=== PATIENT | female | born 1940 | race Caucasian/White ===

== ENCOUNTER 2017-06-19 13:51 | Inpatient (IN) | payer MEDICARE, MEDICAID ==
[~2017-06-19] VITALS: Ht 157.5 cm; Wt 56.2 kg
[~2017-06-19 13:51] MED LIST: ASPI-1152 PO; CALC500T51 PO; GLIM4TAB2 PO; HYDR50TA3 PO; INSU100I4 SQ; INSU100V7 SQ; INSU3INS6 SQ; LEVO100T9 PO; NATE60TA4 PO; NIFE60TA2 PO; NIFE60TA69 PO; OXYB5TAB29 PO; POTA8TAB3 PO; POTA8TAB8 PO; PRAV20TA PO; PROP20TA7 PO; VALS160T2 PO; VALS160T24 PO
--- NOTE | 2017-06-19 14:00 | NUR ---
WEAKNESS AND ELEVATED BLOOD SUGAR SINCE YESTERDAY(OVER 500 PER SON). PATIENT RECEIVED AAO4. APPEARS IN NO APPARENT DISTRESS. SKIN IS WARM TO TOUCH AND NON DIAPHORETIC. PATIENT IS AFEBRILE. VSS
[2017-06-19 14:55] LABS: BASOPHILS % (AUTO) 0.3 % (0.0-2.0); EOSINOPHILS # (AUTO) 0.1 /CMM (0.0-0.7); EOSINOPHILS % (AUTO) 0.8 % (0.0-6.0); HEMATOCRIT 36 % (33-45); HEMOGLOBIN 11.4 g/dL (11.5-14.8); LYMPHOCYTES # (AUTO) 1.6 /CMM (0.8-4.8); LYMPHOCYTES % (AUTO) 24.1 % (20.0-44.0); MEAN CORPUSCULAR HEMOGLOBIN 29 PG (26.0-33.0); MEAN CORPUSCULAR HGB CONC 32 g/dl (31.0-36.0); MEAN CORPUSCULAR VOLUME 91 fL (82-100); MONOCYTES # (AUTO) 0.4 /CMM (0.1-1.30); MONOCYTES % (AUTO) 6.5 % (2.0-12.0); NEUTROPHILS # (AUTO) 4.7 /CMM (1.8-8.9); NEUTROPHILS % (AUTO) 68.3 % (43.0-81.0); PLATELET COUNT (AUTO) 210 /CMM (150-450); RDW COEFFICIENT OF VARIATION 13.3 (11.5-15.0); RED BLOOD CELL COUNT(AUTO) 3.97 MIL/uL (4.0-5.2); WHITE BLOOD COUNT (AUTO) 6.8 K/uL (4.3-11.0)
[2017-06-19] MEDS ORDERED: IV NS 0.9% 1,000 ML BAG IV ONE (15:00)
[2017-06-19 15:08] LABS: CALCIUM, SERUM 9.4 mg/dL (8.5-10.1); CARBON DIOXIDE 24 mmol/L (21-32); CHLORIDE 89 mmol/L (98-107); CREATININE 3.3 mg/dL (0.6-1.3); POTASSIUM 5.3 mmol/L (3.5-5.1); SODIUM SERUM 121 mmol/L (136-145); UREA NITROGEN, BLOOD 66 mg/dL (7-18)
[2017-06-19 15:12] LABS: ALANINE AMINOTRANSFERASE 17 U/L (12-78); ALBUMIN 3.4 g/dL (3.4-5.0); ALKALINE PHOSPHATASE 149 U/L (46-116); ASPARTATE AMINOTRANSFERASE 21 U/L (15-37); BILIRUBIN,DIRECT 0.1 mg/dL (0.0-0.2); BILIRUBIN,TOTAL 0.3 mg/dL (0.2-1.0); GLUCOSE 903 mg/dL (74-106); LIPASE 251 U/L (73-393); TOTAL PROTEIN, SERUM 8.4 g/dL (6.4-8.2)
[2017-06-19 15:13] LABS: TROPONIN I < 0.017 ng/mL (0.00-0.056)
[2017-06-19 15:40] LABS: APPEARANCE,URINE Turbid (CLEAR); BILIRUBIN,URINE Negative (NEGATIVE); BLOOD, URINE Trace-lysed Ery/uL (NEGATIVE); COLOR,URINE Yellow (YELLOW); KETONES,URINE Negative (NEGATIVE); LEUKOCYTE ESTERASE ,URINE Small (NEGATIVE); NITRITE, URINE Positive (NEGATIVE); PH,URINE 5.5 (5.0-8.0); PROTEIN,URINE Negative (NEGATIVE); UGLUCOSE 500 MG/DL mg/dL (NEGATIVE); UROBILINOGEN,URINE 0.2 EU/dL (0.2)
--- NOTE | 2017-06-19 15:45 | NUR ---
PANEL ON-CALL PAGED
[2017-06-19 15:49] LABS: BACTERIA,URINE Moderate /HPF (None Seen); SQUAMOUS EPITHELIAL CELL,UR Few /HPF (None Seen); WBC,URINE 80-100 /HPF (0-3)
[2017-06-19] MEDS ORDERED: IV NS 0.9% 1,000 ML IV ONE (16:00)
--- NOTE | 2017-06-19 16:20 | NUR ---
PANEL ON-CALL PAGED
[2017-06-19] MEDS ORDERED: CEFTRIAXONE 1GM BAG (ER ONLY) 50 ML IV ONE (16:41)
--- NOTE | 2017-06-19 16:44 | NUR ---
AWARE OF INSULIN 903--AWAITING FOR ORDER
[2017-06-19] MEDS ORDERED: INSULIN REGULAR, HUMAN 100 UNIT/ML 10 ML VIAL SQ ONE (17:00)
[2017-06-19] MEDS ORDERED: CEFTRIAXONE 1GM BAG (ER ONLY) 1 GM/50 ML PIGGYBACK IV ONE (17:00)
[2017-06-19] MEDS ORDERED: INSULIN REGULAR, HUMAN 100 UNIT/ML 10 ML VIAL ONE (17:04)
--- NOTE | 2017-06-19 17:12 | NUR ---
PATIENT TRANSPORTED TO [address] [place] [address]
[2017-06-19 17:30] VITALS: BP 98/50
--- NOTE | 2017-06-19 17:35 | NUR ---
TELE/EVP GLOBAL MULTIMEDIA SALES PATIENT ADMITTED FROM ER FOR DIAGNOSIS OF HIGH BLOOD SUGAR. REPORT GIVEN BY BRENDAN BOND FROM ER. A/O X 3. HAITIAN SPEAKING. NO SIGNS OF ACUTE DISTRESS. NO COMPLAIN OF PAIN OR DISCOMFORT. ON TELE MONITOR WITH SINUS RHYTHM. CONTINENT OF BOWEL AND BLADDER. ALL NEEDS ATTENDED TO. CALL LIGHT WITHIN REACH. WILL CONTINUE TO MONITOR TO ENSURE SAFETY.
--- NOTE | 2017-06-19 18:18 | NUR ---
TELE/RN SPOKE WITH DR MARY LOU COX INFORMED REGARDING NEW ADMISSION. AWAITING FOR ADMISSION ORDERS.
[2017-06-19] MEDS ORDERED: IV NS 0.9% 1,000 ML IV PRN ×2 (18:38→19:00)
--- NOTE | 2017-06-19 18:58 | NUR ---
TELE/RN CLOSING NOTE PATIENT IN BED IN STABLE CONDITION. A/O X 3, NICARAGUAN SPEAKING. NO SIGNS OF ACUTE DISTRESS. NO COMPLAIN OF PAIN OR DISCOMFORT. ON TELE MONITOR WITH SINUS RHYTHM, EPISODES OF AFIB WITH BBB WITH RATE OF HIGH 50'S, 58 AT THIS TIME. ALL NEEDS ATTENDED TO. CALL LIGHT WITHIN REACH. WILL ENDORSE TO NEXT SHIFT FOR CONTINUITY OF CARE.
[2017-06-19] MEDS ORDERED: Z GUARD REMEDY 2 OZ OINT TP PRN (19:00)
[2017-06-19] MEDS ORDERED: INSULIN REGULAR, HUMAN 100 UNIT/ML 3 ML VIAL SQ PRN (19:00)
[2017-06-19] MEDS ORDERED: ACETAMINOPHEN 325 MG TABLET PO PRN (19:00)
[2017-06-19] MEDS ORDERED: ONDANSETRON HCL/PF 4 MG/2 ML VIAL IVP PRN (19:00)
--- NOTE | 2017-06-19 19:45 | NUR ---
RN OPENING NOTES RECEIVED REPORT FROM YVAN RN. FOUND Pt AWAKE RESTING IN BED. NO S/S OF ACUTE DISTRESS OR SOB NOTED. NO C/O PAIN AT THIS TIME. Pt IS A/OX3, SLOVAK SPEAKING ONLY. ON TELE MONITOR SB 57. IV ACCESS ON LAC#20G IVF NS @125ML/HR, INFUSING WELL. SAFETY MEASURES IN PLACE. BED LOW, LOCKED, HOB ELEVATED, SIDE RAILS UP, CALL LIGHT AND BEDSIDE TABLE WITHIN REACH. WILL CONTINUE TO MONITOR Pt THROUGHOUT THE NIGHT FOR SAFETY.
[2017-06-19 20:00] VITALS: BP 105/56
[2017-06-19] MEDS: PROPRANOLOL HCL 10 MG TABLET PO SCH (20:00)
[2017-06-19] MEDS: BLOOD SUGAR DIAGNOSTIC 1 EACH STRIP IN SCH ×2 (21:26→21:53)
[2017-06-19] MEDS: ENOXAPARIN SODIUM 40 MG/0.4 ML DISP.SYRIN SQ SCH (21:30)
[2017-06-19] MEDS: VALSARTAN 80 MG TABLET PO SCH (21:36)
[2017-06-19] MEDS ORDERED: CEFTRIAXONE 1 G VIAL ONE (21:57)
[2017-06-19] MEDS ORDERED: INSULIN DETEMIR 100 UNIT/ML CARTRIDGE SQ SCH (22:00)
--- NOTE | 2017-06-19 22:00 | NUR ---
RN NOTES BG 304. ADMINISTERED 16 UN OF REGULAR INSULIN PER AGGRESSIVE SLIDING SCALE IN ADDITION TO LEVEMIR 35UN.
[2017-06-19] MEDS: CEFTRIAXONE 1 G in IV D5W 50 ML IV SCH (22:26)
[2017-06-20] VITALS (8 sets, daily range): BP systolic 98–138; BP diastolic 46–71
[2017-06-20] MEDS: BLOOD SUGAR DIAGNOSTIC 1 EACH STRIP IN SCH ×5 (00:08→22:14)
[2017-06-20] MEDS: DEXTROSE 50%-WATER 50 ML DISP.SYRIN IV PRN ×2 (00:14→05:19)
--- NOTE | 2017-06-20 00:16 | NUR ---
RN NOTES ACCUCHECK BG 10. PUSHED D50%. RECHECKED BG, WENT UP TO 271. NO COVERAGE GIVEN AT THIS TIME.
--- NOTE | 2017-06-20 00:20 | NUR ---
RN NOTES Pt IS RESPONSIVE AND ALERT. IS ABLE TO FOLLOW COMMANDS. Pt REQUESTED FOR SOME WATER AND WAS ABLE TO DRINK WATER WITH NO PROBLEMS.
--- NOTE | 2017-06-20 03:25 | NUR ---
ADMINISTERED D50 AT 0325 DUT TO LOW BG <10. FORGOT TO SCAN AT THE TIME.
--- NOTE | 2017-06-20 03:31 | NUR ---
BG 361
--- NOTE | 2017-06-20 03:31 | NUR ---
BG 361 (RECHECKED AFTER D50% WAS GIVEN). NO INSULIN COVERAGE GIVEN.
--- NOTE | 2017-06-20 03:34 | NUR ---
BG 210 (NO INSULIN COVERAGE GIVEN)
[2017-06-20 03:46] LABS: ABG BASE EXCESS -2.5 mmol/L; ABG OXYGEN SATURATION 98.9 % (92.0-98.5); ABG PCO2 39.6 mmHg (35.0-45.0); ABG PH 7.373 (7.350-7.450); AaDO2 227.4 mmHg; COHb 0.3 % (0.5-1.5); MetHb 0.6 % (0.0-1.5); SITE, ABG Right Radial; VENT MODE, BG NRB
[2017-06-20] MEDS: PROPRANOLOL HCL 10 MG TABLET PO SCH ×3 (04:00→20:00)
--- NOTE | 2017-06-20 04:14 | NUR ---
BG 118 (NO INSULIN COVERAGE GIVEN)
[2017-06-20 04:19] LABS: BASOPHILS % (AUTO) 0.4 % (0.0-2.0); EOSINOPHILS # (AUTO) 0.2 /CMM (0.0-0.7); HEMATOCRIT 32 % (33-45); HEMOGLOBIN 10.9 g/dL (11.5-14.8); LYMPHOCYTES # (AUTO) 2.8 /CMM (0.8-4.8); LYMPHOCYTES % (AUTO) 34.3 % (20.0-44.0); MEAN CORPUSCULAR HEMOGLOBIN 30 PG (26.0-33.0); MEAN CORPUSCULAR HGB CONC 34 g/dl (31.0-36.0); MEAN CORPUSCULAR VOLUME 90 fL (82-100); MONOCYTES # (AUTO) 0.8 /CMM (0.1-1.30); MONOCYTES % (AUTO) 10.3 % (2.0-12.0); NEUTROPHILS # (AUTO) 4.2 /CMM (1.8-8.9); PLATELET COUNT (AUTO) 223 /CMM (150-450); RDW COEFFICIENT OF VARIATION 14.1 (11.5-15.0); WHITE BLOOD COUNT (AUTO) 8.1 K/uL (4.3-11.0)
[2017-06-20 04:30] LABS: CALCIUM, SERUM 8.7 mg/dL (8.5-10.1); CARBON DIOXIDE 25 mmol/L (21-32); CHLORIDE 104 mmol/L (98-107); CREATININE 2.6 mg/dL (0.6-1.3); GLUCOSE 216 mg/dL (74-106); POTASSIUM 3.7 mmol/L (3.5-5.1); SODIUM SERUM 136 mmol/L (136-145); UREA NITROGEN, BLOOD 57 mg/dL (7-18)
[2017-06-20] MEDS ORDERED: IV D5/ 0.9% NACL 1,000 ML IV PRN (04:30)
--- NOTE | 2017-06-20 04:30 | NUR ---
RN NOTES CAME INTO Pt's ROOM TO CHANGE LEADS AT 0325, BUT FOUND Pt UNRESPONSIVE TO NAME BEING CALLED OUT LOUDLY AND TO PHYSICAL TOUCH AND STERNAL RUB. CHECKED BG @0327, BG WAS <10. CALLED RAPID RESPONSE AT 0330, ARRIVAL TIME 332. VS AT THE TIME WAS BP: 114/64, HR 55, R 16, O2 100%, T 97.4F. PUSHED D50%, RECHECKED BG @033, BG WAS 361, NO INSULIN COVERAGE GIVEN. SPOKE WITH ABRASIVE GRADER, MARYSOL BROWN ON THE PHONE, TO INFORM HER OF Pt'S CONDITION. ORDERED STAT EKG, HEAD CT SCAN, & ABG LABS. EKG COMPLETION @0345. Pt WAS TAKEN DOWN FOR CT SCAN @0350, Pt RETURNED FROM CT SCAN @0416. Pt WAS STARTING TO BECOME RESPONSIVE AND WAS STARTING TO HAVE MOVEMENTS OF BOTH UPPER AND LOWER EXTREMITIES AROUND 0345. ONCE Pt RETURNED FROM CT AND WAS BACK IN ROOM, Pt WAS MORE RESPONSIVE AND ABLE TO ANSWER QUESTIONS, AND OPEN EYES AND FOLLOW COMMANDS. WAITING FOR CT RESULTS. MARYSOL ORDERED NEW IVF: D5NS @100ML/HR.
--- NOTE | 2017-06-20 04:31 | NUR ---
STARTED ON D5NS @100ML/HR
[2017-06-20 04:34] LABS: INR 0.98 (0.87-1.13); PROTHROMBIN TIME 10.2 SECS (9.5-12.7)
--- NOTE | 2017-06-20 04:50 | NUR ---
BG 86 (NO INSULIN COVERAGE GIVEN). OJ AND SANDWICH GIVEN.
--- NOTE | 2017-06-20 05:04 | NUR ---
BG 96. SPOKE WITH CHINMAY GREGG ON THE PHONE. SAID TO GIVE 1/2 OF ANOTHER D50% TO HELP KEEP Pt's BG STABLE AND STEADY. AND TO PUT Pt ON D10NS @100ML/HR INSTEAD.
--- NOTE | 2017-06-20 05:25 | NUR ---
BG 175 (NO INSULIN COVERAGE GIVEN.)
[2017-06-20 05:50] LABS: THYROID STIMULATING HORMONE 0.474 uIU/mL (0.358-3.74)
[2017-06-20 05:54] LABS: TROPONIN I 0.021 ng/mL (0.00-0.056)
[2017-06-20 05:55] LABS: PHOSPHORUS 2.3 mg/dL (2.5-4.9)
--- NOTE | 2017-06-20 06:00 | NUR ---
RN NOTES D10NS IS NOT AVAILABLE ON THE FLOOR AT THIS TIME. WILL KEEP Pt ON D5NS @100ML/HR FOR THE MEAN TIME UNTIL PHARMACY IS OPEN AND CAN DELIVER THE IVF BAG TO THE FLOOR.
[2017-06-20] MEDS ORDERED: Sodium Chloride 154 MEQ in IV 10% DEXTROSE 1,000 ML IV PRN (06:30)
--- NOTE | 2017-06-20 07:00 | NUR ---
RN CLOSING NOTES NO OTHER SIGNIFICANT CHANGES TO Pt's CONDITION AFTER RAPID RESPONSE HAS BEEN RESOLVED. CT SCAN CAME BACK NEGATIVE FOR STROKE. Pt IS MUCH MORE ALERT AND VERBALLY & PHYSICALLY RESPONSIVE NOW. Pt WAS ABLE TO DRINK OJ AND EAT A SANDWICH AROUND 0450AM. NO OTHER S/S OF ACUTE DISTRESS OR SOB NOTED. ALL NEEDS MET AND ATTENDED TO. SAFETY MEASURES IN PLACE. WILL ENDORSE TO DAYSHIFT RN FOR Pt's LÁZARO.
--- NOTE | 2017-06-20 07:00 | NUR ---
BG 256 (NO INSULIN COVERAGE GIVEN)
[2017-06-20] MEDS: ASPIRIN EC 81 MG TABLET.DR PO SCH (08:20)
[2017-06-20] MEDS: ATORVASTATIN 10 MG TABLET PO SCH (08:20)
[2017-06-20] MEDS: VALSARTAN 80 MG TABLET PO SCH ×2 (08:21→20:53)
[2017-06-20] MEDS: NIFEdipine XL 60 MG TAB PO SCH (08:21)
[2017-06-20] MEDS: NATEGLINIDE 60 MG TABLET PO SCH (08:21)
[2017-06-20] MEDS: LEVOTHYROXINE SODIUM 100 MCG TABLET PO SCH (08:22)
[2017-06-20] MEDS: OXYBUTYNIN CHLORIDE ER 5 MG TAB PO SCH (08:22)
[2017-06-20] MEDS ORDERED: GLIMEPIRIDE 4 MG TABLET PO SCH (09:00)
--- NOTE | 2017-06-20 09:10 | NUR ---
CALLED DR COX TO DISCUSS PATIENT SUGARS AND TO GET NEW ORDER. STATES TO DISCONTINUE THE INSULINS FOR NOW. ADD HUMALOG 5U AC. DO BLOOD SUGAR CHECKS AC/HS AND PRN. AND TO DISCONTINUE THE D5 AND D10. MD TO CHECK ON PATIENT LATER.
--- NOTE | 2017-06-20 10:12 | NUR ---
DR COX ASKS TO DECREASE THE LEVIMER TO 20 UNITS INSTEAD OF 35.
[2017-06-20] MEDS: INSULIN LISPRO/ASPART 100 UNIT/ML CARTRIDGE SQ SCH ×2 (12:24→17:18)
[2017-06-20] MEDS ORDERED: K PHOS NEUTRAL 250 MG TABLET PO ONE (16:00)
[2017-06-20 16:37] LABS: APPEARANCE,URINE CLOUDY (CLEAR); BILIRUBIN,URINE NEGATIVE (NEGATIVE); BLOOD, URINE 1+ Ery/uL (NEGATIVE); COLOR,URINE YELLOW (YELLOW); KETONES,URINE NEGATIVE (NEGATIVE); LEUKOCYTE ESTERASE ,URINE 3+ (NEGATIVE); NITRITE, URINE NEGATIVE (NEGATIVE); PROTEIN,URINE NEGATIVE (NEGATIVE); UGLUCOSE 2+ mg/dL (NEGATIVE); UROBILINOGEN,URINE 0.2 EU/dL (0.2)
[2017-06-20 16:50] LABS: CREATININE, URINE 28.2 MG/DL (30.0-125.0); URINE TOTAL PROTEIN 29.3 mg/dL (0-11.9)
[2017-06-20 17:48] LABS: WBC,URINE 21-50 /HPF (0-3)
[2017-06-20 17:49] LABS: BACTERIA,URINE Few /HPF (None Seen); SQUAMOUS EPITHELIAL CELL,UR Moderate /HPF (None Seen)
--- NOTE | 2017-06-20 18:21 | NUR ---
NO SIGNIFICANT CHANGES IN PATIENT CONDITION THROUGHOUT THE SHIFT. NO SOB OR DISTRESS NOTED AT THIS TIME. PATIENT DENIES PAIN. HEART RATE SR IN THE 60S WITH 1ST DEGREE AV BLOCK. BED IN A LOW POSITION, CALL LIGHT WITHIN PATIENT REACH. WILL ENDORSE FOR LÁZARO.
[2017-06-20 18:33] LABS: EOSINOPHIL,URINE Few
--- NOTE | 2017-06-20 19:50 | NUR ---
OXYGEN SYSTEM TESTER NOTE: PATIENT RESTING IN BED, NO ACUTE DISTRESS NOTED. BREATHING EVEN AND UNLABORED, NO SOB NOTED. IV TO LAC IN PLACE. NO S/S OF HYPER/HYPOGLYCEMIA NOTED. BED LOCKED AND IN LOWEST POSITION, CALL LIGHT IN REACH. WILL CONTINUE TO MONITOR.
--- NOTE | 2017-06-20 21:20 | NUR ---
VP PUBLISHER DEVELOPMENT NOTE: PATIENT SITTING UP IN BED, NO ACUTE DISTRESS NOTED. REPORT GIVEN TO VARUN NI TO CONTINUE WITH PLAN OF CARE.
--- NOTE | 2017-06-20 21:24 | NUR ---
TELE/RN NOTES RECEIVED REPORT FROM VARUN TANNER. RECEIVED PT. LYING IN BED. AWAKE, ALERT AND ORIENTED X3. BREATHING EVEN AND UNLABORED ON ROOM AIR. NO SOB, RESPIRATORY DISTRESS OR COMPLAINTS OF PAIN NOTED AT THIS TIME. PT. WITH LEFT AC IV PRESENT, PATENT AND INTACT. BED LOCKED AND IN LOWEST POSITION, SIDE RAILS UP X3, BED ALARM ON, CALL LIGHT WITHIN REACH, WILL CONTINUE TO MONITOR.
[2017-06-20] MEDS: INSULIN DETEMIR 100 UNIT/ML CARTRIDGE SQ SCH (22:00)
[2017-06-20] MEDS: CEFTRIAXONE 1 G in IV D5W 50 ML IV SCH (22:14)
[2017-06-20] MEDS: ENOXAPARIN SODIUM 40 MG/0.4 ML DISP.SYRIN SQ SCH (22:15)
[2017-06-21] VITALS: BP 95/50
[2017-06-21 04:00] VITALS: BP 120/62
[2017-06-21] MEDS: PROPRANOLOL HCL 10 MG TABLET PO SCH ×3 (04:00→21:01)
--- NOTE | 2017-06-21 06:24 | NUR ---
MS/RN NOTES PT. IS LYING IN BED RESTING. BREATHING EVEN AND UNLABORED ON ROOM AIR. NO SOB, RESPIRATORY DISTRESS OR COMPLAINTS OF PAIN NOTED AT THIS TIME. PT. WITH LEFT AC IV PRESENT, PATENT AND INTACT. ALL PT. NEEDS MET. BED LOCKED AND IN LOWEST POSITION, SIDE RAILS UP X3, BED ALARM ON, CALL LIGHT WITHIN REACH, WILL ENDORSE TO DAYSHIFT NURSE FOR CONTINUITY OF CARE.
[2017-06-21] MEDS: BLOOD SUGAR DIAGNOSTIC 1 EACH STRIP IN SCH ×4 (06:39→22:47)
--- NOTE | 2017-06-21 07:20 | NUR ---
MS RN OPENING NOTES RECEIVED PT FROM NIGHTSHIFT NURSE IN STABLE CONDITION. PT IS A/O X3. NO SOB OR SIGNS OF DISTRESS NOTED. BREATHING IS EVEN AND UNLABORED. PT EXHIBITS NO S/S OF HYPER/HYPOGLYCEMIA AT THIS TIME. IV NOTED TO BE PATENT AND INTACT. BED IN LOW LOCKED POSITION, SIDE RAILS UP X3, BED ALARM ON, CALL LIGHT WITHIN REACH. WILL CONTINUE TO MONITOR.
[2017-06-21 08:00] VITALS: BP 124/61
[2017-06-21 08:03] LABS: BASOPHILS % (AUTO) 0.7 % (0.0-2.0); EOSINOPHILS # (AUTO) 0.1 /CMM (0.0-0.7); EOSINOPHILS % (AUTO) 2.1 % (0.0-6.0); HEMATOCRIT 34 % (33-45); HEMOGLOBIN 11.2 g/dL (11.5-14.8); LYMPHOCYTES # (AUTO) 2.5 /CMM (0.8-4.8); LYMPHOCYTES % (AUTO) 37.6 % (20.0-44.0); MEAN CORPUSCULAR HEMOGLOBIN 29 PG (26.0-33.0); MEAN CORPUSCULAR HGB CONC 33 g/dl (31.0-36.0); MEAN CORPUSCULAR VOLUME 88 fL (82-100); MONOCYTES # (AUTO) 0.6 /CMM (0.1-1.30); NEUTROPHILS # (AUTO) 3.5 /CMM (1.8-8.9); NEUTROPHILS % (AUTO) 50.6 % (43.0-81.0); PLATELET COUNT (AUTO) 190 /CMM (150-450); RDW COEFFICIENT OF VARIATION 13.3 (11.5-15.0); RED BLOOD CELL COUNT(AUTO) 3.83 MIL/uL (4.0-5.2); WHITE BLOOD COUNT (AUTO) 6.7 K/uL (4.3-11.0)
[2017-06-21 08:36] LABS: ALANINE AMINOTRANSFERASE 16 U/L (12-78); ALBUMIN 2.8 g/dL (3.4-5.0); ALKALINE PHOSPHATASE 93 U/L (46-116); ASPARTATE AMINOTRANSFERASE 16 U/L (15-37); BILIRUBIN,TOTAL 0.2 mg/dL (0.2-1.0); CALCIUM, SERUM 8.6 mg/dL (8.5-10.1); CARBON DIOXIDE 25 mmol/L (21-32); CHLORIDE 105 mmol/L (98-107); CREATININE 2.5 mg/dL (0.6-1.3); GLUCOSE 258 mg/dL (74-106); MAGNESIUM 2.1 mg/dL (1.8-2.4); PHOSPHORUS 3.1 mg/dL (2.5-4.9); POTASSIUM 4.2 mmol/L (3.5-5.1); SODIUM SERUM 139 mmol/L (136-145); TOTAL PROTEIN, SERUM 7.2 g/dL (6.4-8.2); UREA NITROGEN, BLOOD 43 mg/dL (7-18)
[2017-06-21 08:44] LABS: CREATINE KINASE, TOTAL 81 U/L (26-192)
[2017-06-21] MEDS: VALSARTAN 80 MG TABLET PO SCH ×2 (09:00→21:00)
[2017-06-21] MEDS: NIFEdipine XL 60 MG TAB PO SCH (09:00)
[2017-06-21] MEDS: INSULIN LISPRO/ASPART 100 UNIT/ML CARTRIDGE SQ SCH ×3 (09:03→17:16)
[2017-06-21] MEDS: LEVOTHYROXINE SODIUM 100 MCG TABLET PO SCH (09:04)
[2017-06-21] MEDS: OXYBUTYNIN CHLORIDE ER 5 MG TAB PO SCH (09:04)
[2017-06-21] MEDS: ASPIRIN EC 81 MG TABLET.DR PO SCH (09:04)
[2017-06-21] MEDS: NATEGLINIDE 60 MG TABLET PO SCH (09:04)
[2017-06-21] MEDS: ATORVASTATIN 10 MG TABLET PO SCH (09:06)
[2017-06-21 16:00] VITALS: BP 124/63
--- NOTE | 2017-06-21 19:03 | NUR ---
MS RN CLOSING NOTES PT REAMING IN STABLE CONDITION. BLOOD SUGAR REMAINED CONTROLLED WITH INSULIN ADMINISTRATION. MENTAL STATUS WNL THROUGHOUT SHIFT. ALL NEEDS MET AND ORDERS CARRIED OUT ACCORDINGLY. WILL ENDORSE TO NIGHTSHIFT NURSE FOR LÁZARO
--- NOTE | 2017-06-21 19:30 | NUR ---
MS/RN OPENING NOTES PT RECEIVED AWAKE, SITTING UP IN BED. A/OX3, SOME EPISODES OF CONFUSION. MOHAWK SPEAKING, ABLE TO MAKE NEEDS KNOWN. ON ROOM AIR, BREATHING EVEN AND UNLABORED. DENIES SOB OR PAIN AT THIS TIME. IV TO LAC PATENT AND INTACT. BED IN LOW/LOCKED POSITION WITH CALL LIGHT IN REACH AND SIDE RAILS UPX3 AND BED ALARM ON FOR SAFETY. WILL CONTINUE TO MONITOR
[2017-06-21 20:00] VITALS: BP 132/76
[2017-06-21] MEDS: CEFTRIAXONE 1 G in IV D5W 50 ML IV SCH (21:01)
[2017-06-21] MEDS: ENOXAPARIN SODIUM 40 MG/0.4 ML DISP.SYRIN SQ SCH (21:05)
[2017-06-21] MEDS: INSULIN DETEMIR 100 UNIT/ML CARTRIDGE SQ SCH (23:02)
[2017-06-22] MEDS: PROPRANOLOL HCL 10 MG TABLET PO SCH ×2 (05:05→12:11)
--- NOTE | 2017-06-22 07:30 | NUR ---
MS/RN CLOSING NOTES PT ASLEEP, EASILY AROUSABLE TO NAME. A/OX3 WITH EPISODES OF CONFUSION. ICELANDIC SPEAKING. ON ROOM AIR, BREATHING EVEN AND UNLABORED. DENIES SOB OR PAIN. AMBULATES WITH ASSIST BUT UNSTEADY. BED ALARM ON FOR SAFETY. SIDE RAILS UPX3. IV TO LAC PATENT AND INTACT. NO SIGNIFICANT CHANGES OVERNIGHT. MADE PT COMFORTABLE DURING SHIFT. PT DOES NOT WANT TO TAKE INSULIN UNLESS SHE IS READY TO EAT. BLOOD SUGAR AT 0630 WAS 260, NO INSULIN ADMINISTERED PER PT. AWAITING BREAKFAST TRAY. BED IN LOW/LOCKED POSITION WITH CALL LIGHT IN REACH. ENDORSED TO AM SHIFT LÁZARO.
--- NOTE | 2017-06-22 07:32 | NUR ---
MS RN OPENING NOTES RECEIVED PT ASLEEP IN BED, EASILY AROUSABLE. A/O X 3, DENIES PAIN OR DISCOMFORTS AT THIS TIME. REPORTED THAT PT HAS B/S OF 260 THIS MORNING AND WILL ADMINISTER HUMALOG 5UNITS BEFORE BREAKFAST SCHEDULED. ON ROOM AIR, RESPIRATIONS EVEN WITH NO SOB NOTED. IV ACCESS ON LAC G#20 INTACT AND PATENT. HOB ELEVATED. BED LOCKED AND IN LOWEST POSITION WITH SIDE-RAILS UP X2. CALL LIGHT WITHIN EASY TO REACH. WILL CONTINUE TO MONITOR
[2017-06-22 08:00] VITALS: BP 124/53
[2017-06-22] MEDS: LEVOTHYROXINE SODIUM 100 MCG TABLET PO SCH (08:03)
[2017-06-22] MEDS: BLOOD SUGAR DIAGNOSTIC 1 EACH STRIP IN SCH ×3 (08:03→17:23)
[2017-06-22] MEDS: INSULIN LISPRO/ASPART 100 UNIT/ML CARTRIDGE SQ SCH ×3 (08:05→17:22)
[2017-06-22] MEDS ORDERED: INSU100C SQ (08:24)
[2017-06-22] MEDS: ASPIRIN EC 81 MG TABLET.DR PO SCH (08:25)
[2017-06-22] MEDS: ATORVASTATIN 10 MG TABLET PO SCH (08:25)
[2017-06-22] MEDS: NATEGLINIDE 60 MG TABLET PO SCH (08:25)
[2017-06-22] MEDS: OXYBUTYNIN CHLORIDE ER 5 MG TAB PO SCH (08:25)
[2017-06-22] MEDS ORDERED: CEPH-569 PO (08:26)
[2017-06-22] MEDS: NIFEdipine XL 60 MG TAB PO SCH (08:27)
[2017-06-22] MEDS: VALSARTAN 80 MG TABLET PO SCH (08:27)
[2017-06-22 11:23] LABS: PTH, INTACT 53 pg/mL (15-65)
[2017-06-22 16:00] VITALS: BP 115/59
--- NOTE | 2017-06-22 16:06 | NUR ---
RN NOTES CALLED PT'S SON LELE AND INFORMED THAT PT WILL BE DISCHARGED TODAY AND SAID THAT HE WILL COME BETWEEN [phone] TO [facility]. WILL FOLLOW-UP.
--- NOTE | 2017-06-22 19:05 | NUR ---
MS RN DISCHARGED NOTES PT DISCHARGED HOME IN STABLE CONDITION. LEFT UNIT AT 1905 VIA WHEELCHAIR ACCOMPANIED BY SON LELE A/O X 3, NO SIGNS OF DISTRESS DURING DISCHARGE. V/S TAKEN AND RECORDED. PHOTOS OF SKIN TAKEN AND FILED ON CHART. BELONGINGS CHECKED, COUNTED AND SIGNED FORM. PNA AND FLU VACCINES NOT GIVEN PT RECEIVED THEM ALREADY BUT FORGOT THE DATES. EXIT CARE REVIEWED AND HEALTH TEACHINGS GIVEN TO SON AND PT AND BOTH VERBALIZED UNDERSTANDING. MD AND CHARGE NURSE AWARE OF DISCHARGE.
[2017-06-25 08:07] LABS: *SPE A/G RATIO 0.9 (0.7-1.7); *SPE ALPHA-1-GLOBULIN 0.2 g/dL (0.0-0.4); *SPE ALPHA-2-GLOBULIN 0.9 g/dL (0.4-1.0); *SPE BETA GLOBULIN 0.7 g/dL (0.7-1.3); *SPE GLOBULIN, TOTAL 3.4 g/dL (2.2-3.9); *SPE M-SPIKE Not Observed g/dL (Not Observed); *SPEGAMMA GLOBULIN 1.6 g/dL (0.4-1.8)
== END 2017-06-22 19:05 | disposition home or self-care (01) | DRG 637 ==
LOC: ER 13:51 → TELE 16:59 → MED 06-21 08:54
PROVIDERS: ADMIT Nurse Practitioner Acute Care; ATTEND Nurse Practitioner Acute Care
DX: E11.00 Type 2 diabetes mellitus with hyperosmolarity without nonketotic hyperglycemic-hyperosmolar coma (NKHHC) (principal); N17.0 Acute kidney failure with tubular necrosis; E87.0 Hyperosmolality and hypernatremia; N39.0 Urinary tract infection, site not specified; E87.1 Hypo-osmolality and hyponatremia; E11.649 Type 2 diabetes mellitus with hypoglycemia without coma; E11.22 Type 2 diabetes mellitus with diabetic chronic kidney disease; E11.65 Type 2 diabetes mellitus with hyperglycemia; E03.9 Hypothyroidism, unspecified; Z79.84 Long term (current) use of oral hypoglycemic drugs; Z79.4 Long term (current) use of insulin; Z79.82 Long term (current) use of aspirin; Z79.899 Other long term (current) drug therapy; F03.90 Unspecified dementia, unspecified severity, without behavioral disturbance, psychotic disturbance, mood disturbance, and anxiety; Z86.73 Personal history of transient ischemic attack (TIA), and cerebral infarction without residual deficits; B96.89 Other specified bacterial agents as the cause of diseases classified elsewhere; N18.9 Chronic kidney disease, unspecified; I12.9 Hypertensive chronic kidney disease with stage 1 through stage 4 chronic kidney disease, or unspecified chronic kidney disease; E87.5 Hyperkalemia; Z98.890 Other specified postprocedural states
CPT/HCPCS: 36415; 36600; 70450-TC; 71010-TC; 80048-TC; 80053-TC; 80061-TC; 80076-TC; 81000-TC; 82550-TC; 82570-TC; 82803-TC; 82962-TC; 83690-TC; 83735-TC; 83970; 84100-TC; 84155; 84155-TC; 84165; 84300-TC; 84443-TC; 84484-TC; 85025-TC; 85730-TC; 86850-TC; 87081-TC; 87086-TC; 87186-TC; A4606; J0696; J1650; J1815; J3490; J7030; J7042; J7060; Z7610

== ENCOUNTER 2017-07-14 05:54 | Inpatient (IN) | payer MEDICARE, MEDICAID ==
[~2017-07-14] VITALS: Ht 160 cm; Wt 56.2 kg
[~2017-07-14 05:54] MED LIST changes: +CEPH-569 PO; +INSU100C SQ; -INSU100I4 SQ; -INSU100V7 SQ; -NIFE60TA69 PO; -POTA8TAB8 PO; -VALS160T24 PO
--- NOTE | 2017-07-14 06:00 | NUR ---
76 yo female bb family. patient is seems drowsie. per family patient is slow to response, family brought patient to ed for possible low blood sugar. per family patient takes 15 units of lantus at bed time, patient assisted to er bed, skin warm and dry, resp even and unlabored. awaiting orders from provider, will continue to monitor
--- NOTE | 2017-07-14 06:05 | NUR ---
bg shows 52, md notified. gave patient juice and apple sauce. after admin patient family states patient seem back to base line, will continue to monitor
--- NOTE | 2017-07-14 06:15 | NUR ---
22g left hand iv started
[2017-07-14 06:43] LABS: BASOPHILS % (AUTO) 0.7 % (0.0-2.0); EOSINOPHILS # (AUTO) 0.3 /CMM (0.0-0.7); EOSINOPHILS % (AUTO) 4.1 % (0.0-6.0); HEMATOCRIT 33 % (33-45); HEMOGLOBIN 11.2 g/dL (11.5-14.8); LYMPHOCYTES # (AUTO) 3.1 /CMM (0.8-4.8); LYMPHOCYTES % (AUTO) 47.7 % (20.0-44.0); MEAN CORPUSCULAR HEMOGLOBIN 31 PG (26.0-33.0); MEAN CORPUSCULAR HGB CONC 34 g/dl (31.0-36.0); MEAN CORPUSCULAR VOLUME 90 fL (82-100); MONOCYTES # (AUTO) 0.6 /CMM (0.1-1.30); MONOCYTES % (AUTO) 9.2 % (2.0-12.0); NEUTROPHILS # (AUTO) 2.4 /CMM (1.8-8.9); NEUTROPHILS % (AUTO) 38.3 % (43.0-81.0); PLATELET COUNT (AUTO) 215 /CMM (150-450); RDW COEFFICIENT OF VARIATION 13.8 (11.5-15.0); RED BLOOD CELL COUNT(AUTO) 3.64 MIL/uL (4.0-5.2); WHITE BLOOD COUNT (AUTO) 6.4 K/uL (4.3-11.0)
[2017-07-14] MEDS ORDERED: IV NS 0.9% 1,000 ML BAG IV ONE ×2 (07:00→07:30)
--- NOTE | 2017-07-14 07:20 | NUR ---
NURSING CROSSBAR FRAME WIRER NITA NOTIFIED OF BAREHUGGER MACHINE FOR BED 3
[2017-07-14 07:36] LABS: APPEARANCE,URINE CLEAR (CLEAR); BILIRUBIN,URINE NEGATIVE (NEGATIVE); BLOOD, URINE NEGATIVE Ery/uL (NEGATIVE); COLOR,URINE YELLOW (YELLOW); KETONES,URINE NEGATIVE (NEGATIVE); LEUKOCYTE ESTERASE ,URINE TRACE (NEGATIVE); NITRITE, URINE NEGATIVE (NEGATIVE); PROTEIN,URINE NEGATIVE (NEGATIVE); UGLUCOSE TRACE mg/dL (NEGATIVE); UROBILINOGEN,URINE 0.2 EU/dL (0.2)
[2017-07-14 07:52] LABS: CALCIUM, SERUM 9.1 mg/dL (8.5-10.1); CARBON DIOXIDE 26 mmol/L (21-32); CHLORIDE 104 mmol/L (98-107); CREATININE 2.4 mg/dL (0.6-1.3); GLUCOSE 132 mg/dL (74-106); POTASSIUM 5.3 mmol/L (3.5-5.1); SODIUM SERUM 137 mmol/L (136-145); UREA NITROGEN, BLOOD 25 mg/dL (7-18)
[2017-07-14 08:22] LABS: BACTERIA,URINE None seen /HPF (None Seen); RBC,URINE 0-2 /HPF (0-2); SQUAMOUS EPITHELIAL CELL,UR Few /HPF (None Seen); WBC,URINE 0-2 /HPF (0-3)
[2017-07-14 08:45] LABS: TROPONIN I < 0.017 ng/mL (0.00-0.056)
--- NOTE | 2017-07-14 08:46 | NUR ---
PANEL ON-CALL PAGED STATED BY DR VASQUEZ'S MESSAGE CENTER
[2017-07-14] MEDS ORDERED: IV NS 0.9% 1,000 ML IV PRN (09:15)
--- NOTE | 2017-07-14 09:27 | NUR ---
REPORT GIVEN TO DELVIS BOND FOR CONT OF CARE
[2017-07-14] MEDS ORDERED: ONDANSETRON HCL/PF 4 MG/2 ML VIAL IVP PRN (09:30)
[2017-07-14] MEDS ORDERED: Z GUARD REMEDY 2 OZ OINT TP PRN (09:30)
[2017-07-14] MEDS ORDERED: HYDROCODONE/APAP 5/325MG 1 EACH TABLET PO PRN ×2 (09:30→13:00)
[2017-07-14] MEDS ORDERED: VANCOMYCIN 1 GM in IV D5W 250 ML IV ONE (09:30)
[2017-07-14] MEDS ORDERED: ZOLPIDEM TARTRATE 5 MG TABLET PO PRN (09:30)
[2017-07-14] MEDS ORDERED: ACETAMINOPHEN 325 MG TABLET PO PRN (09:30)
[2017-07-14] MEDS ORDERED: MAGNESIUM HYDROXIDE 30 ML UDC PO PRN (09:30)
[2017-07-14] MEDS ORDERED: PIPERACILLIN /TAZOBACTAM 3.375 G in IV D5W 50 ML IV ONE (09:30)
[2017-07-14] MEDS ORDERED: MAG HYDROX/AL HYDROX/SIMETH 30 ML UDC PO PRN (09:30)
[2017-07-14 09:32] LABS: THYROID STIMULATING HORMONE 1.123 uIU/mL (0.358-3.74)
[2017-07-14] MEDS ORDERED: FEE PK DOSING 1 MIN EA MC ONE (09:37)
--- NOTE | 2017-07-14 09:42 | NUR ---
PT TRANSFERRED TO FLOOR VIA ACLS PROTOCOL
--- NOTE | 2017-07-14 10:00 | NUR ---
BELT MAKER HELPER NOTES RECEIVED PT FROM E.R. STAFF, AWAKE, ALERT AND ORIENTED, ASSISTED TO BED, MADE COMFORTABLE, ROOM SET UP ORIENTATION PROVIDED TO PT, VERBALIZED UNDERSTANDING, CALL LIGHT PLACED WITHIN REACH, RECEIVED ADMITTING ORDERS FROM MD, NOTED AND CARRIED OUT.
[2017-07-14] MEDS: IV D5/ 0.9% NACL 1,000 ML IV PRN (11:08)
[2017-07-14 12:00] VITALS: BP 128/68
[2017-07-14] MEDS ORDERED: LORAZEPAM 0.5 MG TABLET PO PRN (13:00)
--- NOTE | 2017-07-14 13:00 | NUR ---
RESIDENTIAL PROGRAM DIRECTOR NOTES PT IN BED, RESTING, SEEN BY DR. KIM, ASSISTED PT WITH MEALS, BS CHECK DONE, NO S/S OF HYPOGLYCEMIA, IV FLUIDS INFUSING WELL, CALL LIGHT WITHIN REACH.
[2017-07-14 16:00] VITALS: BP 133/84
[2017-07-14] MEDS: BLOOD SUGAR DIAGNOSTIC 1 EACH STRIP IN SCH ×2 (17:08→22:00)
[2017-07-14] MEDS: PIPERACILLIN /TAZOBACTAM 2.25 G in IV D5W 50 ML IV SCH ×2 (17:08→23:41)
--- NOTE | 2017-07-14 18:33 | NUR ---
DIESEL MECHANIC FARM NOTES PT IN BED, AWAKE, ALERT AND ORIENTED, DENIES PAIN, NOT IN DISTRESS, IV FLUIDS INFUSING WELL, BS CHECKED, NO S/S OF HYPO/HYPERGLYCEMIA NOTED, ASSISTED TO BEDSIDE COMMODE, WILL CONTINUE TO MONITOR, ALL NEEDS ATTENDED.
--- NOTE | 2017-07-14 19:30 | NUR ---
TIRE REGROOVING MACHINE OPERATOR OPENING NOTES RECEIVED REPORT FROM OLIVIA BOND. PATIENT A/A/O X2, MOSTLY INDONESIAN SPEAKING BUT ABLE TO MAKE SOME NEEDS KNOWN. BREATHING EVEN & UNLABORED, TOLERATING ROOM AIR. DENIES SOB OR DIFFICULTY BREATHING. ON TELE SINUS RHYTHM IN THE 80S. SKIN WARM, DRY & INTACT. RIGHT FA IV #20 INTACT W/ DRESSING CDI & IVF D5 NS @ 75 ML/HR. DENIES ANY PAIN OR DISCOMFORT @ THIS TIME. BEDSIDE COMMODE WITHIN REACH. SAFETY MEASURES IN PLACE W/ SIDE RAILS UP, BED LOCKED & IN LOWEST POSITION & CALL LIGHT WITHIN REACH. WILL CONTINUE TO MONITOR.
[2017-07-14 20:00] VITALS: BP 102/72
[2017-07-15] VITALS (9 sets, daily range): BP systolic 125–163; BP diastolic 58–72
[2017-07-15] MEDS: PIPERACILLIN /TAZOBACTAM 2.25 G in IV D5W 50 ML IV SCH ×3 (05:30→17:06)
[2017-07-15] MEDS: IV D5/ 0.9% NACL 1,000 ML IV PRN (05:34)
[2017-07-15 06:49] LABS: BASOPHILS % (AUTO) 0.7 % (0.0-2.0); EOSINOPHILS # (AUTO) 0.2 /CMM (0.0-0.7); EOSINOPHILS % (AUTO) 2.7 % (0.0-6.0); HEMATOCRIT 27 % (33-45); LYMPHOCYTES # (AUTO) 2.4 /CMM (0.8-4.8); LYMPHOCYTES % (AUTO) 39.6 % (20.0-44.0); MEAN CORPUSCULAR HEMOGLOBIN 31 PG (26.0-33.0); MEAN CORPUSCULAR HGB CONC 34 g/dl (31.0-36.0); MEAN CORPUSCULAR VOLUME 91 fL (82-100); MONOCYTES # (AUTO) 0.5 /CMM (0.1-1.30); MONOCYTES % (AUTO) 8.9 % (2.0-12.0); NEUTROPHILS # (AUTO) 2.9 /CMM (1.8-8.9); NEUTROPHILS % (AUTO) 48.1 % (43.0-81.0); PLATELET COUNT (AUTO) 163 /CMM (150-450); RDW COEFFICIENT OF VARIATION 14.8 (11.5-15.0); RED BLOOD CELL COUNT(AUTO) 2.94 MIL/uL (4.0-5.2); WHITE BLOOD COUNT (AUTO) 5.9 K/uL (4.3-11.0)
[2017-07-15 07:02] LABS: CARBON DIOXIDE 25 mmol/L (21-32); CHLORIDE 111 mmol/L (98-107); GLUCOSE 104 mg/dL (74-106); PHOSPHORUS 2.6 mg/dL (2.5-4.9); POTASSIUM 4.2 mmol/L (3.5-5.1); SODIUM SERUM 142 mmol/L (136-145); UREA NITROGEN, BLOOD 21 mg/dL (7-18)
[2017-07-15 07:09] LABS: CHOLESTEROL 122 mg/dL (<200)
[2017-07-15 07:32] LABS: HDL CHOLESTEROL 73 mg/dL (40-60); LDL 42 mg/dL (0-99); THYROID STIMULATING HORMONE 0.978 uIU/mL (0.358-3.74); TRIGLYCERIDES 80 mg/dL (30-150)
--- NOTE | 2017-07-15 07:35 | NUR ---
RN DOCUMENTATION SPECIALIST OPENING NOTE PATIENT IS COMFORTABLE IN BED AT THIS TIME WITH SAFETY MEASURES IMPLEMENTED. A/O x2-3. NO PAIN AT THIS THIS TIME. NO SOB OR DISTRESS NOTED. CALL LIGHT WITHIN REACH. IV INTACT AND PATENT NO REDNESS OR SWELLING NOTED. TELE MONITOR WITH SR AT 78. WILL CONTINUE TO MONITOR THROUGHOUT SHIFT
[2017-07-15] MEDS: BLOOD SUGAR DIAGNOSTIC 1 EACH STRIP IN SCH ×4 (07:54→21:26)
--- NOTE | 2017-07-15 08:14 | NUR ---
SENIOR ADMINISTRATIVE SERVICES OFFICER NOTE BLOOD SUGAR CHECKED THIS MORNING, 120. NO INSULIN NEEDED. WILL CONTINUE MONITORING THROUGHOUT SHIFT
[2017-07-15] MEDS ORDERED: PRAVASTATIN SODIUM 20 MG TABLET PO SCH (09:00)
[2017-07-15] MEDS: NIFEdipine XL 60 MG TAB PO SCH (09:12)
[2017-07-15] MEDS: NATEGLINIDE 60 MG TABLET PO SCH (09:12)
[2017-07-15] MEDS: ASPIRIN EC 81 MG TABLET.DR PO SCH (09:12)
[2017-07-15] MEDS: CALCIUM CARBONATE (1250) 500 MG TABLET PO SCH ×2 (09:12→16:14)
[2017-07-15] MEDS: LEVOTHYROXINE SODIUM 100 MCG TABLET PO SCH (09:12)
[2017-07-15] MEDS: PROPRANOLOL HCL 10 MG TABLET PO SCH ×3 (09:26→16:14)
[2017-07-15] MEDS ORDERED: IV NS 0.9% 1,000 ML IV PRN (10:00)
[2017-07-15] MEDS: LACTOBACILLUS RHAMNOSUS GG 1 EACH CAP.SPRINK PO SCH (16:14)
--- NOTE | 2017-07-15 18:33 | NUR ---
DIRECTOR SHIP CLOSING NOTE PATIENT IS COMFORTABLE SITTING UP IN CHAIR. NO PAIN AT THIS TIME. NO SOB OR DISTRESS NOTED. CALL LIGHT WITHIN REACH AT ALL TIMES. SAFETY MEASURES IMPLEMENTED. IV INTACT AND PATENT NO REDNESS OR SWELLING. BLOOD SUGAR MONITORED THROUGHOUT SHIFT NO INSULIN GIVEN, MONITORING DUE TO HYPOGLYCEMIA. PT EVAL TOMORROW FOR POSSIBLE ARU EVALUATION. TELE MONITOR SR- 83. WILL ENDORSE TO CHIEF SPECIALIST LEED FOR LÁZARO
--- NOTE | 2017-07-15 19:56 | NUR ---
TELE/RN RECEIVE PATIENT SITTING ON CHAIR AT BEDSIDE AWAKE, ALERT, ORIENTED, COMFORTABLE, NO C/O PAIN, NO DISTRESS NOTED, CALL LIGHT IN REACH. WILL MONITOR.
[2017-07-15] MEDS ORDERED: VANCOMYCIN 0.75 GM in IV D5W 250 ML IV SCH (22:00)
[2017-07-15] MEDS: ATORVASTATIN 10 MG TABLET PO SCH (22:20)
[2017-07-16] VITALS: BP 123/33
[2017-07-16] MEDS: PIPERACILLIN /TAZOBACTAM 2.25 G in IV D5W 50 ML IV SCH ×3 (00:21→12:32)
--- NOTE | 2017-07-16 00:25 | NUR ---
TELE1/RN PATIENT IS SLEEPING AT THIS TIME, EASILY AROUSABLE, APPEAR COMFORTABLE, NO SIGNS OF DISTRESS NOTED, CALL LIGHT IN REACH. WILL CONTINUE TO MONITOR.
--- NOTE | 2017-07-16 04:32 | NUR ---
TELE1/RN REFUSED VITAL SIGNS AT 04:00.
[2017-07-16] MEDS: BLOOD SUGAR DIAGNOSTIC 1 EACH STRIP IN SCH ×4 (06:51→21:33)
[2017-07-16 07:20] LABS: BASOPHILS % (AUTO) 0.9 % (0.0-2.0); EOSINOPHILS # (AUTO) 0.2 /CMM (0.0-0.7); EOSINOPHILS % (AUTO) 3.4 % (0.0-6.0); HEMATOCRIT 27 % (33-45); HEMOGLOBIN 9.1 g/dL (11.5-14.8); LYMPHOCYTES % (AUTO) 39.7 % (20.0-44.0); MEAN CORPUSCULAR HEMOGLOBIN 30 PG (26.0-33.0); MEAN CORPUSCULAR HGB CONC 33 g/dl (31.0-36.0); MEAN CORPUSCULAR VOLUME 91 fL (82-100); MONOCYTES # (AUTO) 0.5 /CMM (0.1-1.30); NEUTROPHILS # (AUTO) 2.2 /CMM (1.8-8.9); PLATELET COUNT (AUTO) 157 /CMM (150-450); RDW COEFFICIENT OF VARIATION 15.3 (11.5-15.0); RED BLOOD CELL COUNT(AUTO) 3.02 MIL/uL (4.0-5.2); WHITE BLOOD COUNT (AUTO) 4.9 K/uL (4.3-11.0)
--- NOTE | 2017-07-16 07:30 | NUR ---
PT RECEIVED RESTING COMFORTABLY IN BED WITH EYES CLOSED. NO S/S OR C/O PAIN OR DISTRESS NOTED. SIDE RAILS UP X2, CALL LIGHT LEFT WITHIN REACH. WILL CONTINUE PLAN OF CARE.
[2017-07-16 07:42] LABS: CALCIUM, SERUM 8.9 mg/dL (8.5-10.1); CARBON DIOXIDE 23 mmol/L (21-32); CHLORIDE 105 mmol/L (98-107); CREATININE 2.2 mg/dL (0.6-1.3); GLUCOSE 221 mg/dL (74-106); POTASSIUM 4.3 mmol/L (3.5-5.1); SODIUM SERUM 138 mmol/L (136-145); UREA NITROGEN, BLOOD 23 mg/dL (7-18)
[2017-07-16 08:00] VITALS: BP 148/78
[2017-07-16] MEDS: VALSARTAN 80 MG TABLET PO SCH ×2 (08:18→16:13)
[2017-07-16] MEDS: NATEGLINIDE 60 MG TABLET PO SCH (08:18)
[2017-07-16] MEDS: LACTOBACILLUS RHAMNOSUS GG 1 EACH CAP.SPRINK PO SCH ×2 (08:18→16:12)
[2017-07-16] MEDS: CALCIUM CARBONATE (1250) 500 MG TABLET PO SCH ×2 (08:19→16:12)
[2017-07-16] MEDS: NIFEdipine XL 60 MG TAB PO SCH (08:19)
[2017-07-16] MEDS: ASPIRIN EC 81 MG TABLET.DR PO SCH (08:19)
[2017-07-16] MEDS: PROPRANOLOL HCL 10 MG TABLET PO SCH ×3 (08:19→16:13)
[2017-07-16] MEDS: LEVOTHYROXINE SODIUM 100 MCG TABLET PO SCH (08:19)
[2017-07-16] MEDS ORDERED: DEXTROSE 50%-WATER 50 ML DISP.SYRIN IV PRN (11:30)
[2017-07-16] MEDS: INSULIN REGULAR, HUMAN 100 UNIT/ML 3 ML VIAL SQ PRN ×2 (12:33→21:45)
[2017-07-16 16:00] VITALS: BP 117/54
--- NOTE | 2017-07-16 18:22 | NUR ---
CHANGE OF SHIFT REPORT PT RESTING COMFORTABLY IN CHAIR EATING DINNER. NO S/S OR C/O PAIN OR DISTRESS NOTED. SIDE RAILS UP X2, CALL LIGHT LEFT WITHIN REACH. PT KEPT CLEAN, DRY, AND COMFORTABLE. NO SIGNIFICANT CHANGES SINCE PREVIOUS SHIFT. WILL GIVE REPORT TO YULISSA BOND.
[2017-07-16 20:00] VITALS: BP 134/56
--- NOTE | 2017-07-16 20:00 | NUR ---
MS/RN NOTES RECEIVED ENDORSEMENT FROM AM RN FOR LÁZARO, PATIENT IS ALERT, ORIENTED X3, SITTING IN CHAIR, HAVING SOME SNACKS, FAMILY AT BEDSIDE, ASSITED WITH NEEDS, KEEP SKIN INATCT AND DRY, INFORM ABPOUT MEDS AND PLAN OF CARE, SPEAKS LITTLE CITIZEN OF [place], COOPERTAIVE TO CARE, RESPIRATIONS EVEN AND UNLABORED. WILL CONTINUE MONITORING.
[2017-07-16] MEDS: ATORVASTATIN 10 MG TABLET PO SCH (21:28)
[2017-07-16] MEDS ORDERED: INSULIN GLARGINE, 100 UNIT/ML CARTRIDGE SQ SCH (22:00)
--- NOTE | 2017-07-17 02:20 | NUR ---
MS/RN NOTES GAVE REPORT TO MS VARUN PÉREZ FOR PATIENT TRANSFER ,ON WHEELCHAIR, REPORT GIVEN,
[2017-07-17 02:30] VITALS: BP 123/57
--- NOTE | 2017-07-17 02:30 | NUR ---
RN NOTE; RECEIVED PT FROM [facility] 1ST FLOOR IN STABLE CONDITION, BED SIDE REPORT RECEIVED FROM ANDRÉS. PT AMBULATORY W/ ASSIST TO THE BATHROOM. ALERT AND RESPONSIVE. MONGOLIAN SPEAKING.DENIED ANY PAIN OR DISCOMFORT. NEEDS ATTENDED AND ASSISTED TO THE BED. VS:WNL. BED LOW LOCKED. CALL LIGHT WITHIN REACH. WILL CONT TO MONITOR,
[2017-07-17] MEDS: BLOOD SUGAR DIAGNOSTIC 1 EACH STRIP IN SCH ×3 (06:44→17:20)
--- NOTE | 2017-07-17 06:44 | NUR ---
PT IN BED AWAKE AND ALERT. BREATHING EVENLY. NO ACUTE EVENT DURING THE NIGHT. NEEDS ATTENDED. ASSISTED W/ ADLS. CALL LIGHT WITHIN REACH. WILL CONT TO MONITOR AND WILL ENDORSE TO AM SHIFT FOR LÁZARO.
[2017-07-17 07:24] LABS: BASOPHILS % (AUTO) 0.8 % (0.0-2.0); EOSINOPHILS # (AUTO) 0.2 /CMM (0.0-0.7); EOSINOPHILS % (AUTO) 3.2 % (0.0-6.0); HEMATOCRIT 30 % (33-45); HEMOGLOBIN 9.8 g/dL (11.5-14.8); LYMPHOCYTES # (AUTO) 2.4 /CMM (0.8-4.8); MEAN CORPUSCULAR HEMOGLOBIN 30 PG (26.0-33.0); MEAN CORPUSCULAR HGB CONC 33 g/dl (31.0-36.0); MEAN CORPUSCULAR VOLUME 91 fL (82-100); MONOCYTES # (AUTO) 0.7 /CMM (0.1-1.30); MONOCYTES % (AUTO) 11.7 % (2.0-12.0); NEUTROPHILS # (AUTO) 2.3 /CMM (1.8-8.9); NEUTROPHILS % (AUTO) 41.3 % (43.0-81.0); PLATELET COUNT (AUTO) 178 /CMM (150-450); RDW COEFFICIENT OF VARIATION 14.7 (11.5-15.0); RED BLOOD CELL COUNT(AUTO) 3.26 MIL/uL (4.0-5.2); WHITE BLOOD COUNT (AUTO) 5.7 K/uL (4.3-11.0)
--- NOTE | 2017-07-17 07:30 | NUR ---
RN MS NOTES PT IN BED, ASLEEP, BREATHING PATTERN NORMAL, NOT IN DISTRESS, DENIES PAIN, CALL LIGHT WITHIN REACH, NEEDS ATTENDED, KEPT COMFORTABLE IN BED.
[2017-07-17 07:40] LABS: CALCIUM, SERUM 9.5 mg/dL (8.5-10.1); CARBON DIOXIDE 28 mmol/L (21-32); CHLORIDE 106 mmol/L (98-107); CREATININE 2.3 mg/dL (0.6-1.3); GLUCOSE 94 mg/dL (74-106); POTASSIUM 4.3 mmol/L (3.5-5.1); SODIUM SERUM 140 mmol/L (136-145); UREA NITROGEN, BLOOD 26 mg/dL (7-18)
[2017-07-17 08:00] VITALS: BP 141/70
[2017-07-17] MEDS: CALCIUM CARBONATE (1250) 500 MG TABLET PO SCH ×2 (08:29→17:21)
[2017-07-17] MEDS: NATEGLINIDE 60 MG TABLET PO SCH (08:29)
[2017-07-17] MEDS: LACTOBACILLUS RHAMNOSUS GG 1 EACH CAP.SPRINK PO SCH ×2 (08:29→17:21)
[2017-07-17] MEDS: ASPIRIN EC 81 MG TABLET.DR PO SCH (08:29)
[2017-07-17] MEDS: PROPRANOLOL HCL 10 MG TABLET PO SCH ×3 (09:00→17:21)
[2017-07-17] MEDS: NIFEdipine XL 60 MG TAB PO SCH (09:00)
[2017-07-17] MEDS: VALSARTAN 80 MG TABLET PO SCH ×2 (09:00→17:21)
--- NOTE | 2017-07-17 11:18 | NUR ---
RN MS NOTES PT IN BED, SEEN BY DR. VASQUEZ, DISCHARGE ORDER GIVEN, PT INFORMED, DIRECTOR OF FUNDRAISING TO TALK TO FAMILY RE D/C TO HOME VS SNF.
--- NOTE | 2017-07-17 12:00 | NUR ---
RN MS NOTES PT REFUSED INSULIN ADMINISTRATION.
[2017-07-17 16:00] VITALS: BP 150/71
[2017-07-17 17:21] VITALS: BP 150/71
[2017-07-17] MEDS: INSULIN REGULAR, HUMAN 100 UNIT/ML 3 ML VIAL SQ PRN (17:38)
--- NOTE | 2017-07-17 18:22 | NUR ---
RN MS NOTES PT SITTING IN HER CHAIR, ALERT AND ORIENTED, NO COMPLAINT OF PAIN, RESPIRATIONS NORMAL, ASSISTED TO BATHROOM NEEDED, PM MEDS GIVEN ORDERED, ASSISTED WITH MEALS, PM CARE RENDERED, ALL NEEDS ATTENDED, AWAITING FOR SON'S DISTRICT BRANCH MANAGER FOR DISCHARGE.
--- NOTE | 2017-07-17 18:40 | NUR ---
RN MS NOTES PT SITTING IN HER CHAIR, NOT IN PAIN OR DISTRESS, NEPHEW DOMI CAME TO PICK HER UP, DISCHARGE AND MEDICATION INSTRUCTIONS PROVIDED TO PT THROUGH AN INTERLOCKING TOWER OPERATOR, VERBALIZED UNDERSTANDING, BELONGINGS ACCOUNTED FOR, LEFT VIA WHEELCHAIR, ASSISTED BY ENVIRONMENTAL HEALTH NURSE TO HOSPITAL LOBBY, LEFT IN STABLE CONDITION.
[2017-07-17] MEDS ORDERED: INSULIN GLARGINE, 100 UNIT/ML CARTRIDGE SQ SCH (22:00)
[2017-07-18] MEDS ORDERED: LEVOTHYROXINE SODIUM 50 MCG TABLET PO SCH (10:30)
== END 2017-07-17 18:40 | DRG 871 ==
LOC: ER 05:56 → TELE1 09:21 → MEDSG1 07-16 10:39 → MEDSG2 07-17 02:11
PROVIDERS: ADMIT Legal Medicine; ATTEND Legal Medicine
DX: A41.9 Sepsis, unspecified organism (principal); G93.41 Metabolic encephalopathy; N17.9 Acute kidney failure, unspecified; E87.2 Acidosis; N18.4 Chronic kidney disease, stage 4 (severe); E11.649 Type 2 diabetes mellitus with hypoglycemia without coma; E11.22 Type 2 diabetes mellitus with diabetic chronic kidney disease; Z79.4 Long term (current) use of insulin; E03.9 Hypothyroidism, unspecified; Z79.84 Long term (current) use of oral hypoglycemic drugs; Z79.82 Long term (current) use of aspirin; Z79.899 Other long term (current) drug therapy; Z86.73 Personal history of transient ischemic attack (TIA), and cerebral infarction without residual deficits; F03.90 Unspecified dementia, unspecified severity, without behavioral disturbance, psychotic disturbance, mood disturbance, and anxiety; I12.9 Hypertensive chronic kidney disease with stage 1 through stage 4 chronic kidney disease, or unspecified chronic kidney disease; E86.0 Dehydration; D63.8 Anemia in other chronic diseases classified elsewhere; E87.5 Hyperkalemia
CPT/HCPCS: 36415; 70450-TC; 71045-TC; 80048-TC; 80061-TC; 80202-TC; 80305; 81000-TC; 82962-TC; 83605-TC; 83735-TC; 84100-TC; 84439-TC; 84443-TC; 84484-TC; 85025-TC; 87040-TC; 87081-TC; 87086-TC; A4606; J1815; J2543; J3370; J7030; J7042; J7050; J7060; Z7610

== ENCOUNTER 2017-08-13 06:40 | Emergency (ER) | payer MEDICARE, MEDICAID ==
[~2017-08-13] VITALS: Ht 165.1 cm; Wt 61.2 kg
--- NOTE | 2017-08-13 06:42 | NUR ---
BBRA 39 FROM HOME; FAMILY CALLED EMS FOR LOW BLOOD SUGAR; READ LOW IN FIELD. PT SPEAKS ALBANIAN ONLY. PT AAOX4. NO S/S OF ACUTE DISTRESS NOTED. RESP EVEN AND NONE LABORED. SKIN WNL AND NONE DIAPHORETIC, WARM TO TOUCH. VSS. PT PLACED IN GOWN AND ON MONITOR AND POX. AWAITING MD FOR EVAL.
--- NOTE | 2017-08-13 06:45 | NUR ---
JUICE GIVEN TO PT.
--- NOTE | 2017-08-13 07:01 | NUR ---
BG 98
--- NOTE | 2017-08-13 07:09 | NUR ---
BEDSIDE FOR EVAL.
[2017-08-13 07:38] LABS: BASOPHILS # (AUTO) 0.1 /CMM (0.0-0.2); BASOPHILS % (AUTO) 0.7 % (0.0-2.0); EOSINOPHILS # (AUTO) 0.3 /CMM (0.0-0.7); EOSINOPHILS % (AUTO) 4.2 % (0.0-6.0); HEMATOCRIT 32 % (33-45); HEMOGLOBIN 10.5 g/dL (11.5-14.8); LYMPHOCYTES # (AUTO) 2.8 /CMM (0.8-4.8); LYMPHOCYTES % (AUTO) 37.2 % (20.0-44.0); MEAN CORPUSCULAR HEMOGLOBIN 31 PG (26.0-33.0); MEAN CORPUSCULAR HGB CONC 33 g/dl (31.0-36.0); MEAN CORPUSCULAR VOLUME 91 fL (82-100); MONOCYTES # (AUTO) 0.6 /CMM (0.1-1.30); MONOCYTES % (AUTO) 8.5 % (2.0-12.0); NEUTROPHILS # (AUTO) 3.7 /CMM (1.8-8.9); NEUTROPHILS % (AUTO) 49.4 % (43.0-81.0); PLATELET COUNT (AUTO) 242 /CMM (150-450); RDW COEFFICIENT OF VARIATION 15.2 (11.5-15.0); RED BLOOD CELL COUNT(AUTO) 3.45 MIL/uL (4.0-5.2); WHITE BLOOD COUNT (AUTO) 7.5 K/uL (4.3-11.0)
--- NOTE | 2017-08-13 07:44 | NUR ---
REPORT GIVEN TO VARUN VICTORIA FOR LÁZARO.
[2017-08-13 07:46] LABS: LIPASE 122 U/L (73-393)
[2017-08-13 07:51] LABS: CALCIUM, SERUM 9.4 mg/dL (8.5-10.1); CARBON DIOXIDE 24 mmol/L (21-32); CHLORIDE 105 mmol/L (98-107); CREATININE 2.3 mg/dL (0.6-1.3); GLUCOSE 132 mg/dL (74-106); POTASSIUM 5.2 mmol/L (3.5-5.1); SODIUM SERUM 137 mmol/L (136-145); UREA NITROGEN, BLOOD 38 mg/dL (7-18)
[2017-08-13 07:52] LABS: INR 0.96 (0.87-1.13)
[2017-08-13 07:57] LABS: ALANINE AMINOTRANSFERASE 40 U/L (12-78); ALBUMIN 3.3 g/dL (3.4-5.0); ALKALINE PHOSPHATASE 117 U/L (46-116); ASPARTATE AMINOTRANSFERASE 36 U/L (15-37); BILIRUBIN,TOTAL 0.3 mg/dL (0.2-1.0); TOTAL PROTEIN, SERUM 8.7 g/dL (6.4-8.2); TROPONIN I < 0.017 ng/mL (0.00-0.056)
[2017-08-13 08:00] LABS: APPEARANCE,URINE SL CLOUDY (CLEAR); BILIRUBIN,URINE NEGATIVE (NEGATIVE); BLOOD, URINE TRACE Ery/uL (NEGATIVE); COLOR,URINE OTHER (YELLOW); KETONES,URINE NEGATIVE (NEGATIVE); LEUKOCYTE ESTERASE ,URINE 2+ (NEGATIVE); NITRITE, URINE NEGATIVE (NEGATIVE); PH,URINE 6.5 (5.0-8.0); PROTEIN,URINE NEGATIVE (NEGATIVE); UGLUCOSE NEGATIVE (NEGATIVE); UROBILINOGEN,URINE 0.2 EU/dL (0.2)
[2017-08-13 08:12] LABS: BACTERIA,URINE Rare /HPF (None Seen); RBC,URINE 0-2 /HPF (0-2); SQUAMOUS EPITHELIAL CELL,UR Few /HPF (None Seen)
--- NOTE | 2017-08-13 09:10 | NUR ---
PT ASSISTED TO THE RESTROOM. CLEANED AND PLACED ON DIAPER PER REQUEST.
--- NOTE | 2017-08-13 10:00 | NUR ---
PT PROVIDED WITH FOOD TRAY.
--- NOTE | 2017-08-13 10:41 | NUR ---
CALLED STUCCO PLASTERER, NO ANSWER ON BOTH NUMBERS- LEFT A VM.
--- NOTE | 2017-08-13 11:50 | NUR ---
FAMILY MEMBER CALLED AND CAN DIRECTOR FINANCIAL ANALYSIS PT BEFORE 3PM EARLIEST.
--- NOTE | 2017-08-13 12:40 | NUR ---
Patient is resting comfortably in bed with eyes closed. Easily aroused. VSS
--- NOTE | 2017-08-13 14:35 | NUR ---
PT'S SON AT FOR TIMEKEEPER SUPERVISOR.
--- NOTE | 2017-08-13 14:40 | NUR ---
IV removed. Catheter intact and site benign. Pressure and 4x4 applied to site. No bleeding noted.
--- NOTE | 2017-08-13 14:57 | NUR ---
Patient discharged to home in stable condition. Written and verbal after care instructions given. Patient/SON verbalizes understanding of instruction.
[2017-08-13 14:58] VITALS: BP 129/77
== END 2017-08-13 14:59 | disposition home or self-care (01) ==
LOC: ER 06:41
DX: E11.649 Type 2 diabetes mellitus with hypoglycemia without coma (principal); E11.22 Type 2 diabetes mellitus with diabetic chronic kidney disease; I12.9 Hypertensive chronic kidney disease with stage 1 through stage 4 chronic kidney disease, or unspecified chronic kidney disease; N18.9 Chronic kidney disease, unspecified; D64.9 Anemia, unspecified; Z79.4 Long term (current) use of insulin; Z79.82 Long term (current) use of aspirin
CPT/HCPCS: 36415; 71045-TC; 80053-TC; 81000-TC; 82962-TC; 83690-TC; 84484-TC; 85025-TC; 85730-TC; 87086-TC; 87186-TC; A4606; Z7610

== ENCOUNTER 2017-11-10 16:01 | Inpatient (IN) | payer MEDICARE, MEDICAID ==
[~2017-11-10] VITALS: Ht 157.5 cm; Wt 57.2 kg
--- NOTE | 2017-11-10 16:02 | NUR ---
PT ASSISTED VIA WHEELCHAIR TO ED BED 09, BB FAMILY FOR DIARRHEA X TODAY, FEELING WEAK. NAD. VSS RR EVEN AND UNLABORED. SKIN IS WARM AND NON DIAPHREOTIC. PENDING ER MD MARTINEZ
[2017-11-10] MEDS ORDERED: IV NS 0.9% 1,000 ML BAG IV ONE (17:00)
--- NOTE | 2017-11-10 17:05 | NUR ---
NEW IV STARTED ON LAC, 20G. BLOOD DRAWN AND SENT TO LAB.
[2017-11-10 17:10] LABS: BASOPHILS % (AUTO) 0.4 % (0.0-2.0); EOSINOPHILS % (AUTO) 2.2 % (0.0-6.0); HEMATOCRIT 32 % (33-45); HEMOGLOBIN 10.7 g/dL (11.5-14.8); LYMPHOCYTES # (AUTO) 2.8 /CMM (0.8-4.8); LYMPHOCYTES % (AUTO) 41.1 % (20.0-44.0); MEAN CORPUSCULAR HGB CONC 34 g/dl (31.0-36.0); MEAN CORPUSCULAR VOLUME 91 fL (82-100); MONOCYTES # (AUTO) 0.6 /CMM (0.1-1.30); MONOCYTES % (AUTO) 9.5 % (2.0-12.0); NEUTROPHILS # (AUTO) 3.2 /CMM (1.8-8.9); NEUTROPHILS % (AUTO) 46.8 % (43.0-81.0); PLATELET COUNT (AUTO) 228 /CMM (150-450); RDW COEFFICIENT OF VARIATION 13.7 (11.5-15.0); RED BLOOD CELL COUNT(AUTO) 3.49 MIL/uL (4.0-5.2); WHITE BLOOD COUNT (AUTO) 6.7 K/uL (4.3-11.0)
[2017-11-10 17:25] LABS: ALANINE AMINOTRANSFERASE 33 U/L (12-78); ALBUMIN 3.3 g/dL (3.4-5.0); ALKALINE PHOSPHATASE 119 U/L (46-116); ASPARTATE AMINOTRANSFERASE 19 U/L (15-37); BILIRUBIN,DIRECT 0.1 mg/dL (0.0-0.2); BILIRUBIN,TOTAL 0.3 mg/dL (0.2-1.0); CALCIUM, SERUM 8.9 mg/dL (8.5-10.1); CARBON DIOXIDE 23 mmol/L (21-32); CHLORIDE 106 mmol/L (98-107); CREATININE 4.2 mg/dL (0.6-1.3); GLUCOSE 255 mg/dL (74-106); SODIUM SERUM 136 mmol/L (136-145); UREA NITROGEN, BLOOD 49 mg/dL (7-18)
[2017-11-10 17:29] LABS: POTASSIUM 6.6 mmol/L (3.5-5.1)
[2017-11-10] MEDS ORDERED: SODIUM POLYSTYRENE SULFONATE 15 G/60 ML BOTTLE ONE (17:39)
[2017-11-10] MEDS ORDERED: DEXTROSE 50%-WATER 50 ML DISP.SYRIN ONE (17:39)
[2017-11-10] MEDS ORDERED: INSULIN REGULAR, HUMAN 100 UNIT/ML 10 ML VIAL ONE (17:39)
[2017-11-10] MEDS ORDERED: Calcium Gluconate 0.465 MEQ/ML VIAL IV ONE ×2 (17:39→18:00)
[2017-11-10] MEDS ORDERED: DEXTROSE 50%-WATER 50 ML DISP.SYRIN IVP ONE (18:00)
[2017-11-10] MEDS ORDERED: INSULIN REGULAR, HUMAN 100 UNIT/ML 10 ML VIAL IV ONE (18:00)
[2017-11-10] MEDS ORDERED: SODIUM POLYSTYRENE SULFONATE 15 G/60 ML BOTTLE PO ONE (18:00)
--- NOTE | 2017-11-10 18:14 | NUR ---
CALLED [facility] FOR PANEL CALL AND LAST DICK WAS PAGED
[2017-11-10] MEDS ORDERED: HYDROCODONE/APAP 5/325MG 1 EACH TABLET PO PRN (18:30)
[2017-11-10] MEDS ORDERED: Z GUARD REMEDY 2 OZ OINT TP PRN (18:30)
[2017-11-10] MEDS ORDERED: MAGNESIUM HYDROXIDE 30 ML UDC PO PRN (18:30)
[2017-11-10] MEDS ORDERED: MORPHINE SULFATE INJ 4 MG/ML DISP.SYRIN IV PRN (18:30)
[2017-11-10] MEDS ORDERED: ONDANSETRON HCL/PF 4 MG/2 ML VIAL IVP PRN (18:30)
[2017-11-10] MEDS ORDERED: MAG HYDROX/AL HYDROX/SIMETH 30 ML UDC PO PRN (18:30)
--- NOTE | 2017-11-10 18:42 | NUR ---
PT IS ASSIGNED TO [facility]#: 114-1, PT IS DIAGNOSED WITH ACUTE RENAL FAILURE, AND LAST DICK IS THE ACCEPTING STOCK ROOM MANAGER.
--- NOTE | 2017-11-10 18:43 | NUR ---
REPORT GIVEN TO RADHA BOND FOR LÁZARO UPON ADMISSION
--- NOTE | 2017-11-10 18:50 | NUR ---
RN NOTE RECEIVED REPORT FROM BERNARDO IN ER, WILL ENDORSE TO NEXT SHIFT TO CONTINUE ADMISSION PROCESS AND CONTINUITY OF CARE
[2017-11-10] MEDS ORDERED: DEXTROSE 50%-WATER 50 ML DISP.SYRIN IV PRN (19:00)
--- NOTE | 2017-11-10 19:00 | NUR ---
REPORT GIVEN TO ANGEL BOND FOR LÁZARO.
--- NOTE | 2017-11-10 19:01 | NUR ---
RECEIVED REPORT FROM VARUN CHANG FOR LÁZARO.
--- NOTE | 2017-11-10 19:39 | NUR ---
PT TRANSFERRED PER ACLS PROTOCOL.
[2017-11-10 20:00] VITALS: BP 149/69
--- NOTE | 2017-11-10 20:00 | NUR ---
RN NOTES PT NEW ADMISSION FROM ED. PT TRANSFERRED TO HOSPITAL BED. PT A/O X3. NEGATIVE DISTRESS. PT STABLE CONDITION. NEGATIVE SIGNS OF SOB. SKINS PINK WARM AND DRY AND INTACT FROM HEAD TO TOE. NEGATIVE N/V. IV LAC 20G INTACT GOOD BLOOD RETURN NEGATIVE SIGNS OF INFECTION, INFILTRATION. WILL CONTINUE TO MONITOR. BED LOCKED AND LOWEST POSITION. CALL LIGHT WITHIN REACH.
[2017-11-10] MEDS: IV NS 0.9% 1,000 ML IV SCH (20:07)
[2017-11-10 20:50] LABS: CALCIUM, SERUM 9.3 mg/dL (8.5-10.1); CARBON DIOXIDE 25 mmol/L (21-32); CHLORIDE 113 mmol/L (98-107); CREATININE 3.7 mg/dL (0.6-1.3); GLUCOSE 65 mg/dL (74-106); POTASSIUM 4.9 mmol/L (3.5-5.1); SODIUM SERUM 145 mmol/L (136-145); UREA NITROGEN, BLOOD 46 mg/dL (7-18)
[2017-11-10] MEDS ORDERED: ZOLPIDEM TARTRATE 5 MG TABLET PO PRN (22:00)
[2017-11-10] MEDS: INSULIN GLARGINE, 100 UNIT/ML CARTRIDGE SQ SCH (22:00)
[2017-11-10] MEDS: ATORVASTATIN 10 MG TABLET PO SCH (22:15)
[2017-11-10] MEDS: *INSULIN REGULAR(HUMULIN R)HUM 100 UNIT/ML VIAL SQ PRN (22:38)
[2017-11-10] MEDS: BLOOD SUGAR DIAGNOSTIC 1 EACH STRIP VI SCH (23:44)
[2017-11-11] VITALS (7 sets, daily range): BP systolic 114–179; BP diastolic 52–78
[2017-11-11] MEDS: IV NS 0.9% 1,000 ML IV SCH ×3 (02:26→21:24)
[2017-11-11 03:26] LABS: BASOPHILS % (AUTO) 0.7 % (0.0-2.0); EOSINOPHILS % (AUTO) 2.4 % (0.0-6.0); HEMATOCRIT 28 % (33-45); HEMOGLOBIN 9.1 g/dL (11.5-14.8); LYMPHOCYTES # (AUTO) 2.8 /CMM (0.8-4.8); LYMPHOCYTES % (AUTO) 43.6 % (20.0-44.0); MEAN CORPUSCULAR HGB CONC 33 g/dl (31.0-36.0); MEAN CORPUSCULAR VOLUME 92 fL (82-100); MONOCYTES # (AUTO) 0.8 /CMM (0.1-1.30); MONOCYTES % (AUTO) 12.3 % (2.0-12.0); NEUTROPHILS # (AUTO) 2.6 /CMM (1.8-8.9); PLATELET COUNT (AUTO) 191 /CMM (150-450); RDW COEFFICIENT OF VARIATION 14.6 (11.5-15.0); RED BLOOD CELL COUNT(AUTO) 3.01 MIL/uL (4.0-5.2); WHITE BLOOD COUNT (AUTO) 6.3 K/uL (4.3-11.0)
[2017-11-11 03:53] LABS: CALCIUM, SERUM 8.5 mg/dL (8.5-10.1); CARBON DIOXIDE 24 mmol/L (21-32); CHLORIDE 111 mmol/L (98-107); CREATININE 2.9 mg/dL (0.6-1.3); GLUCOSE 193 mg/dL (74-106); MAGNESIUM 1.9 mg/dL (1.8-2.4); PHOSPHORUS 3.7 mg/dL (2.5-4.9); POTASSIUM 4.7 mmol/L (3.5-5.1); SODIUM SERUM 142 mmol/L (136-145); UREA NITROGEN, BLOOD 39 mg/dL (7-18)
[2017-11-11 04:04] LABS: CHOLESTEROL 104 mg/dL (<200); HDL CHOLESTEROL 62 mg/dL (40-60); LDL 32 mg/dL (0-99); THYROID STIMULATING HORMONE 0.441 uIU/mL (0.358-3.74); TRIGLYCERIDES 68 mg/dL (30-150)
--- NOTE | 2017-11-11 07:00 | NUR ---
RN OPENING NOTE RECEIVED PATIENT IN BED.AXOX2 ALBANIAN SPEAKING.NO SOB NO DISTRESS NOTICED.IN IV LAC #20WITH NS 125ML/HR.ALL NEEDS MET.SAFETY MAINTAINED CALL LIGHT IN REACH CONTINUE TO MONITOR.
--- NOTE | 2017-11-11 07:50 | NUR ---
EYAD RN CLOSING NOTE PT REMAINED STABLE DURING. NO ACUTE DISTRESS NOTED. ALL NEEDS ATTENDED TO PROMPTLY. KEPT CLEAN AND DRY. REPOSITIONED Q2H. CALL LIGHT WITHIN REACH. WILL ENDORSE TO NEXT SHIFT FOR CONTINUITY OF CARE.
[2017-11-11] MEDS: BLOOD SUGAR DIAGNOSTIC 1 EACH STRIP VI SCH ×4 (08:05→21:24)
[2017-11-11] MEDS: LEVOTHYROXINE SODIUM 100 MCG TABLET PO SCH (08:05)
[2017-11-11] MEDS: INSULIN REGULAR, HUMAN 100 UNIT/ML 3 ML VIAL SQ PRN ×2 (08:22→21:26)
[2017-11-11] MEDS: PANTOPRAZOLE 40 MG VIAL IV SCH (08:51)
[2017-11-11] MEDS: VALSARTAN 80 MG TABLET PO SCH ×2 (08:52→17:34)
[2017-11-11] MEDS: ASPIRIN EC 81 MG TABLET.DR PO SCH (08:52)
[2017-11-11] MEDS: PROPRANOLOL HCL 10 MG TABLET PO SCH ×3 (08:53→17:34)
[2017-11-11] MEDS: NIFEdipine XL 60 MG TAB PO SCH (08:55)
--- NOTE | 2017-11-11 09:00 | NUR ---
RN NOTES SEEN BY DR VASQUEZ
--- NOTE | 2017-11-11 11:00 | NUR ---
RN NOTES SEEN BY PT ,PATIENT NEED STAND BY ASSISTANCE.OK TO GO TO BATHROOM WITH ASSIST.
[2017-11-11] MEDS: *INSULIN REGULAR(HUMULIN R)HUM 100 UNIT/ML VIAL SQ PRN ×2 (12:19→17:46)
--- NOTE | 2017-11-11 19:00 | NUR ---
RN SHIFT END NOTE PATIENT IN BED.AXOX2 BAHRAINI SPEAKING.NO SOB NO DISTRESS NOTICED.IN IV LAC #20WITH NS 75ML/HR.ALL NEEDS MET.SAFETY MAINTAINED CALL LIGHT IN REACH .WILL ENDORSE TO PM NURSE FOR LÁZARO.
[2017-11-11 19:56] LABS: CALCIUM, SERUM 7.7 mg/dL (8.5-10.1); CARBON DIOXIDE 19 mmol/L (21-32); CHLORIDE 106 mmol/L (98-107); CREATININE 2.4 mg/dL (0.6-1.3); GLUCOSE 294 mg/dL (74-106); SODIUM SERUM 139 mmol/L (136-145); UREA NITROGEN, BLOOD 32 mg/dL (7-18)
[2017-11-11] MEDS: INSULIN GLARGINE, 100 UNIT/ML CARTRIDGE SQ SCH (21:26)
[2017-11-11] MEDS: ATORVASTATIN 10 MG TABLET PO SCH (21:27)
[2017-11-12] VITALS: BP 125/55
[2017-11-12 04:00] VITALS: BP 137/55
[2017-11-12 06:50] LABS: BASOPHILS % (AUTO) 0.4 % (0.0-2.0); EOSINOPHILS % (AUTO) 2.5 % (0.0-6.0); HEMATOCRIT 30 % (33-45); MEAN CORPUSCULAR HGB CONC 33 g/dl (31.0-36.0); MEAN CORPUSCULAR VOLUME 92 fL (82-100); MONOCYTES # (AUTO) 0.5 /CMM (0.1-1.30); MONOCYTES % (AUTO) 8.2 % (2.0-12.0); NEUTROPHILS # (AUTO) 3.9 /CMM (1.8-8.9); NEUTROPHILS % (AUTO) 58.9 % (43.0-81.0); PLATELET COUNT (AUTO) 193 /CMM (150-450); RDW COEFFICIENT OF VARIATION 14.2 (11.5-15.0); RED BLOOD CELL COUNT(AUTO) 3.28 MIL/uL (4.0-5.2); WHITE BLOOD COUNT (AUTO) 6.7 K/uL (4.3-11.0)
[2017-11-12] MEDS: LEVOTHYROXINE SODIUM 100 MCG TABLET PO SCH (07:58)
[2017-11-12] MEDS: BLOOD SUGAR DIAGNOSTIC 1 EACH STRIP VI SCH ×4 (07:58→21:44)
[2017-11-12 08:00] VITALS: BP 126/72
--- NOTE | 2017-11-12 08:05 | NUR ---
INSURANCE RISK SURVEYOR NOTE PT A/OX3 BENGALI SPEAKING PATIENT. NO C/O OF SOB AND NO PAIN. WILL CONTINUE TO MONITOR PATIENT CLOSELY. IV NS @75 ML/HR PATENT AND INTACT. PATIENT RESTING COMFORTABLY IN BED.
[2017-11-12] MEDS: ASPIRIN EC 81 MG TABLET.DR PO SCH (08:20)
[2017-11-12] MEDS: NIFEdipine XL 60 MG TAB PO SCH (08:21)
[2017-11-12] MEDS: VALSARTAN 80 MG TABLET PO SCH ×2 (08:21→16:30)
[2017-11-12] MEDS: PANTOPRAZOLE 40 MG VIAL IV SCH (08:22)
[2017-11-12] MEDS: PROPRANOLOL HCL 10 MG TABLET PO SCH ×3 (08:22→16:30)
[2017-11-12] MEDS: IV NS 0.9% 1,000 ML IV SCH ×2 (10:07→23:01)
[2017-11-12] MEDS: *INSULIN REGULAR(HUMULIN R)HUM 100 UNIT/ML VIAL SQ PRN ×2 (11:42→21:41)
[2017-11-12 12:00] VITALS: BP 143/58
[2017-11-12 16:00] VITALS: BP 139/61
[2017-11-12] MEDS: INSULIN REGULAR, HUMAN 100 UNIT/ML 3 ML VIAL SQ PRN (16:55)
--- NOTE | 2017-11-12 19:17 | NUR ---
COTTAGE MASTER CLOSING NOTE REPORT GIVEN TO PM NURSE FOR LÁZARO. PT STABLE THROUGH OUT SHIFT NO ADVERSE REACTIONS. NO C/O OF SOB AND NO PAIN. ALL SAFETY MEASURES IN PLACE. IV NS @75 ML/HR PATENT AND INTACT. PATIENT RESTING COMFORTABLY IN BED
--- NOTE | 2017-11-12 19:25 | NUR ---
FUR FINISHER OPENING NOTES RECEIVED REPORT FROM HE BOND. PATIENT A/A/O X3, MOSTLY [place]AI[place]ESE-SPEAKING BUT ABLE TO MAKE SOME NEEDS KNOWN. BREATHING EVEN & UNLABORED, TOLERATING ROOM AIR. ON TELE W/ SINUS RHYTHM W/ BBB, HR 64. NO RESPIRATORY OR CARDIAC DISTRESS NOTED. LEFT AC IV #20 INTACT & PATENT W/ DRESSING CDI & IVF NS @ 75 ML/HR. DENIES ANY PAIN OR DISCOMFORT @ THIS TIME. SAFETY MEASURES IN PLACE W/ CALL LIGHT WITHIN REACH. INSTRUCTED TO CALL FOR ASSISTANCE. WILL CONTINUE TO MONITOR.
[2017-11-12 20:00] VITALS: BP 110/54
[2017-11-12] MEDS: INSULIN GLARGINE, 100 UNIT/ML CARTRIDGE SQ SCH (21:40)
[2017-11-12] MEDS: ATORVASTATIN 10 MG TABLET PO SCH (21:44)
[2017-11-13] VITALS (7 sets, daily range): BP systolic 118–141; BP diastolic 34–57
[2017-11-13 06:23] LABS: BASOPHILS % (AUTO) 0.7 % (0.0-2.0); EOSINOPHILS % (AUTO) 3.3 % (0.0-6.0); HEMATOCRIT 27 % (33-45); LYMPHOCYTES # (AUTO) 2.9 /CMM (0.8-4.8); LYMPHOCYTES % (AUTO) 46.2 % (20.0-44.0); MEAN CORPUSCULAR HGB CONC 33 g/dl (31.0-36.0); MEAN CORPUSCULAR VOLUME 92 fL (82-100); MONOCYTES # (AUTO) 0.7 /CMM (0.1-1.30); MONOCYTES % (AUTO) 11.5 % (2.0-12.0); NEUTROPHILS # (AUTO) 2.4 /CMM (1.8-8.9); NEUTROPHILS % (AUTO) 38.3 % (43.0-81.0); PLATELET COUNT (AUTO) 184 /CMM (150-450); RDW COEFFICIENT OF VARIATION 13.9 (11.5-15.0); RED BLOOD CELL COUNT(AUTO) 2.93 MIL/uL (4.0-5.2); WHITE BLOOD COUNT (AUTO) 6.4 K/uL (4.3-11.0)
[2017-11-13 06:30] LABS: CALCIUM, SERUM 8.1 mg/dL (8.5-10.1); CARBON DIOXIDE 22 mmol/L (21-32); CHLORIDE 109 mmol/L (98-107); CREATININE 2.2 mg/dL (0.6-1.3); GLUCOSE 73 mg/dL (74-106); MAGNESIUM 1.8 mg/dL (1.8-2.4); POTASSIUM 3.9 mmol/L (3.5-5.1); SODIUM SERUM 140 mmol/L (136-145); UREA NITROGEN, BLOOD 33 mg/dL (7-18)
--- NOTE | 2017-11-13 07:30 | NUR ---
RECEIVED PT. IN AM ORIENTED X3-CZECH SPEAKING.
[2017-11-13] MEDS: BLOOD SUGAR DIAGNOSTIC 1 EACH STRIP VI SCH ×3 (09:03→17:37)
[2017-11-13] MEDS: PANTOPRAZOLE 40 MG VIAL IV SCH (09:31)
[2017-11-13] MEDS: LEVOTHYROXINE SODIUM 100 MCG TABLET PO SCH (09:31)
[2017-11-13] MEDS: PROPRANOLOL HCL 10 MG TABLET PO SCH ×3 (09:32→17:12)
[2017-11-13] MEDS: NIFEdipine XL 60 MG TAB PO SCH (09:32)
[2017-11-13] MEDS: VALSARTAN 80 MG TABLET PO SCH ×2 (09:33→17:11)
[2017-11-13] MEDS: ASPIRIN EC 81 MG TABLET.DR PO SCH (09:33)
--- NOTE | 2017-11-13 11:30 | NUR ---
CALL TO SON REGARDING DISCH.
[2017-11-13] MEDS: INSULIN REGULAR, HUMAN 100 UNIT/ML 3 ML VIAL SQ PRN ×2 (12:42→18:15)
--- NOTE | 2017-11-13 17:45 | NUR ---
REMOVED HEP LOCK AND TELE.
--- NOTE | 2017-11-13 18:55 | NUR ---
CALL TO PT'S SON-STATES DELAYED ON FREEWAY-IS TO [employer] MOM SOON.
--- NOTE | 2017-11-13 19:20 | NUR ---
SON HERE GIVEN ALL DC INSTRUCTIONS-TAKEN TO LOBBY VIA W/C BY RADHA AND MAGED.HAS ALL PAPERWORK.
== END 2017-11-13 20:17 | disposition home or self-care (01) | DRG 684 ==
LOC: ER 16:04 → TELE-TD 19:07 → TELE1 11-11 11:41
PROVIDERS: ADMIT Legal Medicine; ATTEND Legal Medicine
DX: N17.9 Acute kidney failure, unspecified (principal); E11.22 Type 2 diabetes mellitus with diabetic chronic kidney disease; E11.65 Type 2 diabetes mellitus with hyperglycemia; E87.5 Hyperkalemia; E86.0 Dehydration; I12.9 Hypertensive chronic kidney disease with stage 1 through stage 4 chronic kidney disease, or unspecified chronic kidney disease; E03.9 Hypothyroidism, unspecified; N18.4 Chronic kidney disease, stage 4 (severe); Z87.440 Personal history of urinary (tract) infections; Z86.73 Personal history of transient ischemic attack (TIA), and cerebral infarction without residual deficits; Z79.4 Long term (current) use of insulin; F03.90 Unspecified dementia, unspecified severity, without behavioral disturbance, psychotic disturbance, mood disturbance, and anxiety; Z79.82 Long term (current) use of aspirin; Z79.899 Other long term (current) drug therapy; R19.7 Diarrhea, unspecified
CPT/HCPCS: 36415; 71045-TC; 80048-TC; 80061-TC; 80076-TC; 82962-TC; 83735-TC; 84100-TC; 84443-TC; 84484-TC; 85025-TC; 87045-TC; 87081-TC; 89055; A4606; C9113; J0610; J1815; J3490; J7030; Z7610

== ENCOUNTER 2018-02-18 19:01 | Inpatient (IN) | payer MEDICARE, MEDICAID ==
[~2018-02-18] VITALS: Ht 149.9 cm; Wt 54.0 kg
[2018-02-18 04:00] VITALS: BP 116/51
[~2018-02-18 19:01] MED LIST changes: -CEPH-569 PO; -GLIM4TAB2 PO; -HYDR50TA3 PO; -INSU100C SQ; -OXYB5TAB29 PO; -POTA8TAB3 PO; -PRAV20TA PO
[2018-02-18] MEDS ORDERED: INSULIN ASPART/LISPRO 100 UNIT/ML CARTRIDGE SQ STA (19:29)
[2018-02-18] MEDS ORDERED: IV NS 0.9% 1,000 ML BAG IV ONE (19:30)
[2018-02-18 19:55] LABS: BASOPHILS % (AUTO) 0.6 % (0.0-2.0); EOSINOPHILS % (AUTO) 1.8 % (0.0-6.0); HEMATOCRIT 33 % (33-45); HEMOGLOBIN 10.8 g/dL (11.5-14.8); LYMPHOCYTES # (AUTO) 2.1 /CMM (0.8-4.8); LYMPHOCYTES % (AUTO) 39.7 % (20.0-44.0); MEAN CORPUSCULAR HEMOGLOBIN 30 PG (26.0-33.0); MEAN CORPUSCULAR HGB CONC 33 g/dl (31.0-36.0); MEAN CORPUSCULAR VOLUME 93 fL (82-100); MONOCYTES # (AUTO) 0.5 /CMM (0.1-1.30); MONOCYTES % (AUTO) 9.3 % (2.0-12.0); NEUTROPHILS # (AUTO) 2.6 /CMM (1.8-8.9); NEUTROPHILS % (AUTO) 48.6 % (43.0-81.0); PLATELET COUNT (AUTO) 230 /CMM (150-450); RDW COEFFICIENT OF VARIATION 12.4 (11.5-15.0); RED BLOOD CELL COUNT(AUTO) 3.57 MIL/uL (4.0-5.2); WHITE BLOOD COUNT (AUTO) 5.3 K/uL (4.3-11.0)
[2018-02-18 20:16] LABS: ALANINE AMINOTRANSFERASE 14 U/L (12-78); ALBUMIN 2.9 g/dL (3.4-5.0); ALKALINE PHOSPHATASE 131 U/L (46-116); ASPARTATE AMINOTRANSFERASE 9 U/L (15-37); BILIRUBIN,DIRECT 0.1 mg/dL (0.0-0.2); BILIRUBIN,TOTAL 0.2 mg/dL (0.2-1.0); CALCIUM, SERUM 9.1 mg/dL (8.5-10.1); CARBON DIOXIDE 27 mmol/L (21-32); CHLORIDE 101 mmol/L (98-107); CREATININE 2.7 mg/dL (0.6-1.3); LIPASE 240 U/L (73-393); POTASSIUM 5.9 mmol/L (3.5-5.1); SODIUM SERUM 132 mmol/L (136-145); TOTAL PROTEIN, SERUM 7.3 g/dL (6.4-8.2); UREA NITROGEN, BLOOD 49 mg/dL (7-18)
[2018-02-18 20:18] LABS: GLUCOSE 550 mg/dL (74-106)
--- NOTE | 2018-02-18 20:40 | NUR ---
PT BIB FAMILY SENT BY PMD FOR EVALUATION OF HIGH BLOOD SUGAR ON LABS YESTERDAY. DENIES HX OF DIABETES. DENIES PHYSICAL COMPLAINTS. RESP EVEN UNLABORED. SKIN WARM DRY, TENTING. IN ER BED 08.
[2018-02-18] MEDS ORDERED: INSULIN REGULAR, HUMAN 100 UNIT/ML 10 ML VIAL IV ONE (21:00)
--- NOTE | 2018-02-18 21:18 | NUR ---
IN AND OUT CATH PERFORMED 8FR, TOLERATED WELL. DORIS-CARE RENDERED AND PLACED IN A DIAPER PER PT REQUEST.
[2018-02-18 21:24] LABS: APPEARANCE,URINE Slightly Cloudy (CLEAR); BILIRUBIN,URINE Negative (NEGATIVE); BLOOD, URINE Small Ery/uL (NEGATIVE); COLOR,URINE Yellow (YELLOW); KETONES,URINE Negative (NEGATIVE); LEUKOCYTE ESTERASE ,URINE Small (NEGATIVE); NITRITE, URINE Negative (NEGATIVE); PH,URINE 5.5 (5.0-8.0); PROTEIN,URINE 30 mg/dl (NEGATIVE); UGLUCOSE 500 MG/DL mg/dL (NEGATIVE); UROBILINOGEN,URINE 0.2 EU/dL (0.2)
[2018-02-18 21:32] LABS: BACTERIA,URINE Many /HPF (None Seen); SQUAMOUS EPITHELIAL CELL,UR Few /HPF (None Seen)
[2018-02-18 21:33] LABS: RBC,URINE 0-2 /HPF (0-2)
--- NOTE | 2018-02-18 21:48 | NUR ---
CALLED DR LEMUS ANSWERING SERVICE, WAS PAGED.
--- NOTE | 2018-02-18 21:49 | NUR ---
CALLED DR LEMUS ANSWERING SERVICE, WAS PAGED.
--- NOTE | 2018-02-18 21:52 | NUR ---
DR RAE ON PHONE WITH DR VASQUEZ
[2018-02-18] MEDS ORDERED: CALCIUM CHLORIDE 1,000 MG/10 ML DISP.SYRIN IV ONE (22:00)
[2018-02-18] MEDS ORDERED: CEFTRIAXONE 1 G VIAL ONE (22:00)
[2018-02-18] MEDS ORDERED: CEFTRIAXONE 1 G in IV D5W 50 ML IV ONE (22:00)
[2018-02-18] MEDS ORDERED: CALCIUM CHLORIDE 1,000 MG/10 ML DISP.SYRIN ONE (22:09)
--- NOTE | 2018-02-18 22:10 | NUR ---
NOTIFIED OF BRADYCARDIA, ORDER FOR CALCIUM CHLORIDE OBTAINED AND ADMINISTERED SLOW IVP.
--- NOTE | 2018-02-18 22:20 | NUR ---
REPORT GIVEN TO JOCY BOND FOR ADMISSION
[2018-02-18] MEDS ORDERED: ALBUTEROL FS 2.5 MG/3 ML VIAL.NEB ONE ×2 (22:30)
--- NOTE | 2018-02-18 22:45 | NUR ---
PT TRANSPORTED TO [facility] IN STABLE CONDITION VIA ACLS PROTOCOL WITH ALBUTEROL NEB ONGOING
[2018-02-18 22:50] VITALS: BP 135/53
--- NOTE | 2018-02-18 22:50 | NUR ---
TAB BUILDERBUTCHER SCULLION NOTES Patient came to unit via gurney with ongoing albuterol inhalation. Patient is mohawk speaking, very limited ukrainian. Asked RADHA Augustine to translate. Patient is alert, oriented x 3. Able to make needs known. Breathing even and unlabored. Not in any distress. Tele monitor put in place, SR 67. Body check and skin assessment done. Skin intact, 1x1 cm bruise on the right side of the abdomen. Picture in chart. Patient denies any pain. Oriented to call light. Bed in low, locked position. Will continue to monitor
[2018-02-18] MEDS ORDERED: DEXTROSE 50%-WATER 50 ML DISP.SYRIN IV PRN (23:00)
--- NOTE | 2018-02-18 23:18 | NUR ---
PAGED EPIC WRAPPER LAYER DR CALDERON FOR PANEL ADMISSION
[2018-02-18] MEDS ORDERED: ALBUTEROL FS 2.5 MG/3 ML VIAL.NEB NEB SCH (23:30)
[2018-02-19] MEDS ORDERED: ACETAMINOPHEN 325 MG TABLET PO PRN
[2018-02-19] MEDS ORDERED: CLONIDINE HCL 0.1 MG TABLET PO PRN
[2018-02-19] MEDS ORDERED: ONDANSETRON HCL/PF 4 MG/2 ML VIAL IV PRN
[2018-02-19] MEDS ORDERED: ENOXAPARIN SODIUM 30 MG/0.3 ML DISP.SYRIN SQ ONE (01:00)
[2018-02-19] MEDS ORDERED: IV NS 0.9% 1,000 ML BAG IV SCH (02:00)
[2018-02-19] MEDS ORDERED: IV NS 0.9% 1,000 ML BAG IV PRN ×3 (02:00)
[2018-02-19] MEDS: IV NS 0.9% 1,000 ML IV PRN ×2 (02:19→16:57)
--- NOTE | 2018-02-19 03:26 | NUR ---
RN NOTES Clarified with Dr. Jones regarding Albuterol 2.5mg/mL neb Q4H order as per RT, they just give large doses in ER. As per Dr. Jones, give it PRN. Charge nurse made aware
[2018-02-19 04:00] VITALS: BP 116/51
[2018-02-19] MEDS ORDERED: ALBUTEROL FS 2.5 MG/3 ML VIAL.NEB NEB PRN ×3 (04:30→07:35)
[2018-02-19] MEDS: INSULIN REGULAR, HUMAN 100 UNIT/ML 3 ML VIAL SQ PRN ×2 (06:38→12:09)
[2018-02-19] MEDS: BLOOD SUGAR DIAGNOSTIC 1 EACH STRIP VI SCH ×4 (06:40→21:05)
--- NOTE | 2018-02-19 07:01 | NUR ---
FURNACE PACKER CLOSING NOTES Patient in bed, sleeping but easily arousable. Patient remains stable. Not in any distress. On tele monitor' sinus rhythm 70. Peripheral IV of NS 1000mL infusing at @ 100mL/hr. No complaints as of this time. All needs attended to. All due medications given as ordered. Will endorse LÁZARO to oncoming RN.
--- NOTE | 2018-02-19 07:30 | NUR ---
MATERIALS PLANNER NOTES PT RECEIVED IN BED AT LOWEST AND LOCKED POSITION SIDE RAILS UP X2, A/O X3, NO S/S OF DISTRESS OR PAIN NOTED, IV IS PATENT AND INTACT WITH IVF RUNNING ORDERED, WILL CONTINUE TO MONITOR AND ASSESS
[2018-02-19 07:35] LABS: BASOPHILS % (AUTO) 0.5 % (0.0-2.0); EOSINOPHILS % (AUTO) 0.5 % (0.0-6.0); HEMATOCRIT 29 % (33-45); HEMOGLOBIN 9.1 g/dL (11.5-14.8); LYMPHOCYTES % (AUTO) 30.3 % (20.0-44.0); MEAN CORPUSCULAR HEMOGLOBIN 30 PG (26.0-33.0); MEAN CORPUSCULAR HGB CONC 32 g/dl (31.0-36.0); MEAN CORPUSCULAR VOLUME 94 fL (82-100); MONOCYTES # (AUTO) 0.6 /CMM (0.1-1.30); MONOCYTES % (AUTO) 9.2 % (2.0-12.0); NEUTROPHILS # (AUTO) 3.9 /CMM (1.8-8.9); NEUTROPHILS % (AUTO) 59.5 % (43.0-81.0); PLATELET COUNT (AUTO) 183 /CMM (150-450); RDW COEFFICIENT OF VARIATION 13.5 (11.5-15.0); RED BLOOD CELL COUNT(AUTO) 3.03 MIL/uL (4.0-5.2); WHITE BLOOD COUNT (AUTO) 6.5 K/uL (4.3-11.0)
[2018-02-19 07:36] LABS: CARBON DIOXIDE 20 mmol/L (21-32); CHLORIDE 110 mmol/L (98-107); CREATININE 2.3 mg/dL (0.6-1.3); GLUCOSE 264 mg/dL (74-106); POTASSIUM 5.2 mmol/L (3.5-5.1); SODIUM SERUM 139 mmol/L (136-145); UREA NITROGEN, BLOOD 42 mg/dL (7-18)
[2018-02-19 08:00] VITALS: BP 117/51
[2018-02-19] MEDS: CALCIUM CARBONATE (1250) 500 MG TABLET PO SCH ×2 (08:28→16:07)
[2018-02-19] MEDS: NATEGLINIDE 60 MG TABLET PO SCH (08:28)
[2018-02-19] MEDS: ASPIRIN EC 81 MG TABLET.DR PO SCH (08:29)
[2018-02-19] MEDS: PROPRANOLOL HCL 10 MG TABLET PO SCH ×3 (08:30→16:08)
[2018-02-19] MEDS: NIFEdipine XL 60 MG TAB PO SCH (08:34)
[2018-02-19] MEDS ORDERED: INSU100I24 SQ (10:19)
[2018-02-19] MEDS ORDERED: ERGO500040 PO (10:19)
[2018-02-19] MEDS ORDERED: CHOL500052 PO (10:19)
[2018-02-19] MEDS ORDERED: LOSA50TA21 PO (10:19)
[2018-02-19] MEDS ORDERED: ATOR10TA PO (10:19)
[2018-02-19 16:00] VITALS: BP 152/83
--- NOTE | 2018-02-19 18:00 | NUR ---
MS RN CLOSING NOTES PT IN BED AT LOWEST AND LOCKED POSITION SIDE RAILS UP X2, A/O X3, NO S/S OF DISTRESS OR PAIN NOTED, IV IS PATENT AND INTACT WITH NS RUNNING AT 100 ML/HR, ALL NEEDS ATTEND, WILL ENDORSE TO NIGHT NURSE.
--- NOTE | 2018-02-19 19:00 | NUR ---
MS RN OPENING NOTE RECEIVE PATIENT AWAKE IN BED, A/O X 3, NO SOB OR DISTRESS NOTED, CALL LIGHT WITHIN REACH. SAFETY MEASURES IMPLEMENTED. WILL CONTINUE TO MONITOR THROUGHOUT SHIFT.
[2018-02-19 20:00] VITALS: BP 144/67
[2018-02-19] MEDS: CEFTRIAXONE 1 G in IV D5W 50 ML IV SCH (21:05)
[2018-02-19] MEDS: *INSULIN REGULAR(HUMULIN R)HUM 100 UNIT/ML VIAL SQ PRN (21:06)
[2018-02-19] MEDS ORDERED: ENOXAPARIN SODIUM 30 MG/0.3 ML DISP.SYRIN SQ SCH (22:00)
[2018-02-20] MEDS: IV NS 0.9% 1,000 ML IV PRN (05:49)
[2018-02-20] MEDS: BLOOD SUGAR DIAGNOSTIC 1 EACH STRIP VI SCH ×4 (05:50→21:01)
[2018-02-20] MEDS: INSULIN REGULAR, HUMAN 100 UNIT/ML 3 ML VIAL SQ PRN ×2 (05:54→18:38)
--- NOTE | 2018-02-20 06:29 | NUR ---
MS RN CLOSING NOTES PT COMFORTABLY ASLEEP AND EASILY AWAKEN, STABLE, NOT IN DISTRESS. RESPIRATION EVEN AND UNLABORED. KEPT CLEAN AND DRY AND COMFORTABLE, ALL NURSING CARE RENDERED. NEEDS ATTENDED AND ANTICIPATED, GOOD SKIN CARE PROVIDED. ON LOW BED AT ALL TIMES TO ENSURE SAFETY. SAFE HAZARD FREE ENVIRONMENT PROVIDED. CALL LIGHT WITHIN EASY TO REACH. WILL ENDORSE NEXT SHIFT CONTINUITY OF CARE
[2018-02-20 07:20] LABS: BASOPHILS % (AUTO) 0.5 % (0.0-2.0); HEMATOCRIT 32 % (33-45); HEMOGLOBIN 10.1 g/dL (11.5-14.8); LYMPHOCYTES # (AUTO) 2.4 /CMM (0.8-4.8); LYMPHOCYTES % (AUTO) 39.3 % (20.0-44.0); MEAN CORPUSCULAR HEMOGLOBIN 30 PG (26.0-33.0); MEAN CORPUSCULAR HGB CONC 32 g/dl (31.0-36.0); MEAN CORPUSCULAR VOLUME 94 fL (82-100); MONOCYTES # (AUTO) 0.5 /CMM (0.1-1.30); MONOCYTES % (AUTO) 7.6 % (2.0-12.0); NEUTROPHILS # (AUTO) 3.1 /CMM (1.8-8.9); NEUTROPHILS % (AUTO) 50.6 % (43.0-81.0); PLATELET COUNT (AUTO) 209 /CMM (150-450); RDW COEFFICIENT OF VARIATION 13.8 (11.5-15.0); RED BLOOD CELL COUNT(AUTO) 3.36 MIL/uL (4.0-5.2); WHITE BLOOD COUNT (AUTO) 6.2 K/uL (4.3-11.0)
--- NOTE | 2018-02-20 07:30 | NUR ---
MS RN OPENING NOTES PT RECEIVED IN BED AT LOWEST AND LOCKED POSITION SIDE RAILS UP X2, A/O X3, NO S/S OF DISTRESS OR PAIN NOTED, BREATHING IS EVEN AND UNLABORED, IV IS PATENT AND INTACT WITH IVF RUNNING ORDERED, WILL CONTINUE TO MONITOR AND ASSESS
[2018-02-20 07:38] LABS: CALCIUM, SERUM 8.8 mg/dL (8.5-10.1); CARBON DIOXIDE 22 mmol/L (21-32); CHLORIDE 108 mmol/L (98-107); CREATININE 2.1 mg/dL (0.6-1.3); GLUCOSE 149 mg/dL (74-106); MAGNESIUM 1.9 mg/dL (1.8-2.4); POTASSIUM 4.9 mmol/L (3.5-5.1); SODIUM SERUM 140 mmol/L (136-145); UREA NITROGEN, BLOOD 39 mg/dL (7-18)
[2018-02-20 08:00] VITALS: BP 138/83
[2018-02-20] MEDS: CALCIUM CARBONATE (1250) 500 MG TABLET PO SCH ×2 (08:18→16:25)
[2018-02-20] MEDS: ASPIRIN EC 81 MG TABLET.DR PO SCH (08:18)
[2018-02-20] MEDS: NATEGLINIDE 60 MG TABLET PO SCH (08:19)
[2018-02-20] MEDS: LEVOTHYROXINE SODIUM 100 MCG TABLET PO SCH (08:19)
[2018-02-20] MEDS: PROPRANOLOL HCL 10 MG TABLET PO SCH ×3 (08:20→16:26)
[2018-02-20] MEDS: NIFEdipine XL 60 MG TAB PO SCH (08:22)
[2018-02-20] MEDS: *INSULIN REGULAR(HUMULIN R)HUM 100 UNIT/ML VIAL SQ PRN ×2 (12:13→21:39)
[2018-02-20] MEDS: LOSARTAN POTASSIUM 50 MG TABLET PO SCH (13:30)
[2018-02-20 16:00] VITALS: BP 126/67
--- NOTE | 2018-02-20 18:00 | NUR ---
MS RN OPENING NOTES PT COMFORTABLE IN BED AT LOWEST AND LOCKED POSITION SIDE RAILS UP X2, A/O X3, STABLE, NO S/S OF DISTRESS OR PAIN NOTED, BREATHING IS EVEN AND UNLABORED, IV IS PATENT AND INTACT WITH IVF RUNNING ORDERED, ALL NEEDS ATTENDED TO, SAFETY PRECAUTIONS IN PLACE, WILL ENDORSE TO BANQUET DIRECTOR NURSE Addendum: 02/20/18 at 1855 by ROBERTO DANIEL RN MS RN CLOSING NOTES PT COMFORTABLE IN BED AT LOWEST AND LOCKED POSITION SIDE RAILS UP X2, A/O X3, STABLE, NO S/S OF DISTRESS OR PAIN NOTED, BREATHING IS EVEN AND UNLABORED, IV IS PATENT AND INTACT WITH IVF RUNNING ORDERED, ALL NEEDS ATTENDED TO, SAFETY PRECAUTIONS IN PLACE, WILL ENDORSE TO BANQUET DIRECTOR NURSE
--- NOTE | 2018-02-20 19:38 | NUR ---
MS/RN OPENING NOTES PATIENT IN BED, AWAKE, ALERT, X3, SANISH SPEAKING,
--- NOTE | 2018-02-20 19:38 | NUR ---
MS/RN OPENING NOTES PATIENT IN BED, AWAKE, ALERT X3, LATVIAN SPEAKS, LUNG SOUNDS CLEAR UPON AUSCULTATION, SLIN WARM TO TOUCH, AMBULATORY WITH SUPERVISION, RECEIVED ENDORSEMENT FROM AM RN FOR LÁZARO, CALL LIGHTS WITHIN REACH, BED IN LOCK POSITION, WILL MONITOR HYPO/HYPER GLYCEMIA. AND KEEP COMFORTABLE AND SAFE. PROVIDE FLUIDS.
[2018-02-20 20:00] VITALS: BP 129/74
[2018-02-20] MEDS ORDERED: ENOXAPARIN SODIUM 30 MG/0.3 ML DISP.SYRIN SQ SCH (21:00)
[2018-02-20] MEDS: CEFTRIAXONE 1 G in IV D5W 50 ML IV SCH (21:01)
[2018-02-20] MEDS ORDERED: ATORVASTATIN 10 MG TABLET PO SCH (22:00)
[2018-02-21] MEDS: IV NS 0.9% 1,000 ML IV PRN (01:45)
[2018-02-21] MEDS: BLOOD SUGAR DIAGNOSTIC 1 EACH STRIP VI SCH ×2 (05:59→11:13)
--- NOTE | 2018-02-21 06:40 | NUR ---
327-1 PATIENT IN BED, ALERT, ORIENTED X2 BUT FORGETFUL, ABLE TO SLEEP DURING THE NIGHT ON ANTIBIOTICE, SKIN WARM TO TOUCH, RESPIRATIONS EVEN AND UNLABORED ON ROOM AIR, WILL ENDORSE TO AM RN FOR LÁZARO.
--- NOTE | 2018-02-21 07:10 | NUR ---
MSRN OPENING NOTES. PT RECEIVED HEBREW SPEAKING A&0X2 AND ENDORSED FORGETFUL. PT TOLERATING ROOM AIR WITHOUT SOB OR RESP DISTRESS. PT DENIES PAIN. PT ASSITED TO BSC AND REPOSITIONED. PT BED IN LOWEST LOCKED POSITION WITH HANDRAILSX2 AND CALL ESTEVEZ WITHIN REACH, HOB ELEVATED AND BED ALARM ENGAGED. PT BRIEFED ON POC AND IS WITHOUT CONCERN OR COMPLAINT. WILL CONTINUE POC
[2018-02-21 08:00] VITALS: BP 123/69
[2018-02-21] MEDS: NATEGLINIDE 60 MG TABLET PO SCH (08:18)
[2018-02-21] MEDS: CALCIUM CARBONATE (1250) 500 MG TABLET PO SCH ×2 (08:18→17:08)
[2018-02-21] MEDS: LEVOTHYROXINE SODIUM 100 MCG TABLET PO SCH (08:18)
[2018-02-21] MEDS: ASPIRIN EC 81 MG TABLET.DR PO SCH (08:18)
[2018-02-21] MEDS: LOSARTAN POTASSIUM 50 MG TABLET PO SCH (08:18)
[2018-02-21] MEDS: PROPRANOLOL HCL 10 MG TABLET PO SCH ×3 (08:18→17:08)
--- NOTE | 2018-02-21 12:00 | NUR ---
MSRN. CONFIRMED PT PICKUP AT 1700 BY MAGED ROYAL AFTER HE FINISHES WORK.
[2018-02-21] MEDS: *INSULIN REGULAR(HUMULIN R)HUM 100 UNIT/ML VIAL SQ PRN (12:35)
[2018-02-21 17:08] VITALS: BP 155/79
--- NOTE | 2018-02-21 17:22 | NUR ---
MSVARUN. CONTACTED SON LELE R/T PICKUP. SON NOT ANSWERING AT THIS TIME.
--- NOTE | 2018-02-21 18:05 | NUR ---
MSRArben. D/C NOTES. PT PREPARED FOR D/C PER MD. PT TOLERATING ROOM AIR AND DENIES PAIN. PT IVC REMOVED AND NAD AT SITE. PT REFUSED PHOTOGRAPH OF SMALL ABDOMINAL BRUISE STAING IT HAD ALREADY BEEN DONE. PT IVC REMOVED AND NAD AT SITE. PT AND PT SON LELE BREIFED ON SOH D/C PACKET, NEW MEDICATIONS AND POC, PT AND SON VERBALIZING UNDERSTANDING, RESOURCES AND INTENT TO FOLLOW POC. PT WITH ALL BELONGINGS AND DOCUMENT SIGNED. LELE AND PT AWARE TO MONITOR AND MANAGE EVENING BGL AT HOME. ESCORT WITH WHEELCHAIR TO CAR. PT AND SON LEFT WITHOUT CONCERN OR COMPLAINT AND GRATEFUL FOR CARE.
== END 2018-02-21 17:58 | disposition home health service (06) | DRG 871 ==
LOC: ER 19:03 → TELE 21:52 → MED 02-19 20:15
PROVIDERS: ADMIT Legal Medicine; ATTEND Legal Medicine
DX: A41.9 Sepsis, unspecified organism (principal); N17.0 Acute kidney failure with tubular necrosis; N18.4 Chronic kidney disease, stage 4 (severe); N39.0 Urinary tract infection, site not specified; I12.9 Hypertensive chronic kidney disease with stage 1 through stage 4 chronic kidney disease, or unspecified chronic kidney disease; E11.65 Type 2 diabetes mellitus with hyperglycemia; E11.22 Type 2 diabetes mellitus with diabetic chronic kidney disease; Z99.2 Dependence on renal dialysis; F03.90 Unspecified dementia, unspecified severity, without behavioral disturbance, psychotic disturbance, mood disturbance, and anxiety; E03.9 Hypothyroidism, unspecified; Z86.73 Personal history of transient ischemic attack (TIA), and cerebral infarction without residual deficits; Z79.82 Long term (current) use of aspirin; Z79.4 Long term (current) use of insulin; R63.0 Anorexia; Z68.24 Body mass index [BMI] 24.0-24.9, adult; B96.4 Proteus (mirabilis) (morganii) as the cause of diseases classified elsewhere
CPT/HCPCS: 36415; 80048-TC; 80076-TC; 81000-TC; 82962-TC; 83690-TC; 83735-TC; 84484-TC; 85025-TC; 87081-TC; 87086-TC; 87186-TC; 97116-TC; 97530-TC; A4606; J0696; J1650; J1815; J3490; J7030; J7060; Z7610

== ENCOUNTER 2018-08-10 21:36 | Inpatient (IN) | payer MEDICARE, MEDICAID ==
[~2018-08-10] VITALS: Ht 167.6 cm; Wt 44.5 kg
[~2018-08-10 21:36] MED LIST changes: +ATOR10TA PO; +LOSA50TA39 PO
--- NOTE | 2018-08-10 21:37 | NUR ---
PT BIBFAMILY VIA PRIVATE CAR, PT CAME IN UNRESPONSIVE, WITHDRAWAL TO DEEP PAIN, GCS OF 7, AGONAL RESPIRATIONS, SKIN COLD BUT DRY, PULSE WAS THREADY AND BRADYCARDIC, PT'S FAMILY STATED PT WAS NOT FEELING WELL X2DAYS, THEY SUSPECTED "LOW BLOOD SUGAR". UNABLE TO ASSESS BLOOD PRESSURE AND O2 SAT AT THIS TIME DESPITE MULTIPLE ATTEMPTS. PT TO BED 5, MD AND RT AT BEDSIDE.
--- NOTE | 2018-08-10 21:43 | NUR ---
RT Pt brought in unresponsive by family. Rapid sequence intubation done. 7.5 ETT placed @ 21' @ lip line. [facility] w charted settings per MD order. Vent plugged into red outlet w ambubag @ hob. Alarms are set and audible. Pt sx'd w no adverse reactions. Will continue to monitor.
--- NOTE | 2018-08-10 21:45 | NUR ---
2136: ATROPINE IVP FOR BRADYCARDIA 2137: PLACED PT ON TRANSCUTANEOUS PACER 2138: CALCIUM AND BICARB IVP GIVEN 2140: RSI INITIATED; ETOMIDATE 20MG IVP AND ROCURONIUM 100MG IVP GIVEN 2142: ET TUBE PLACED BY MD, 7.5 AND 21 AT THE LIP, NOTED POSITIVE COLOR CHANGE; B BREATH SOUNDS PRESENT.
[2018-08-10] MEDS ORDERED: PROPOFOL 100 ML ONE (21:49)
[2018-08-10 21:51] VITALS: BP 152/103
[2018-08-10] MEDS ORDERED: ROCURONIUM BROMIDE 50 MG/5 ML IV ONE (22:00)
[2018-08-10] MEDS ORDERED: ETOMIDATE 2 MG/ML VIAL IV ONE (22:00)
[2018-08-10] MEDS ORDERED: NOREPINEPHRINE 4 MG/4 ML AMPUL IV ONE (22:07)
[2018-08-10 22:17] LABS: BASOPHILS % (AUTO) 0.3 % (0.0-2.0); EOSINOPHILS % (AUTO) 0.1 % (0.0-6.0); HEMATOCRIT 28 % (33-45); HEMOGLOBIN 8.8 g/dL (11.5-14.8); LYMPHOCYTES # (AUTO) 1.2 /CMM (0.8-4.8); LYMPHOCYTES % (AUTO) 21.4 % (20.0-44.0); MEAN CORPUSCULAR HGB CONC 32 g/dl (31.0-36.0); MEAN CORPUSCULAR VOLUME 97 fL (82-100); MONOCYTES # (AUTO) 0.6 /CMM (0.1-1.30); MONOCYTES % (AUTO) 10.6 % (2.0-12.0); NEUTROPHILS # (AUTO) 3.7 /CMM (1.8-8.9); NEUTROPHILS % (AUTO) 67.6 % (43.0-81.0); PLATELET COUNT (AUTO) 197 /CMM (150-450); RED BLOOD CELL COUNT(AUTO) 2.84 MIL/uL (4.0-5.2); WHITE BLOOD COUNT (AUTO) 5.4 K/uL (4.3-11.0)
[2018-08-10 22:29] LABS: ALANINE AMINOTRANSFERASE 185 U/L (12-78); ALBUMIN 2.7 g/dL (3.4-5.0); ALKALINE PHOSPHATASE 365 U/L (46-116); ASPARTATE AMINOTRANSFERASE 110 U/L (15-37); BILIRUBIN,DIRECT 0.3 mg/dL (0.0-0.2); BILIRUBIN,TOTAL 0.5 mg/dL (0.2-1.0); CALCIUM, SERUM 9.8 mg/dL (8.5-10.1); CARBON DIOXIDE 14 mmol/L (21-32); CHLORIDE 99 mmol/L (98-107); CREATININE 3.2 mg/dL (0.6-1.3); SODIUM SERUM 132 mmol/L (136-145); UREA NITROGEN, BLOOD 67 mg/dL (7-18)
[2018-08-10 22:32] LABS: GLUCOSE 353 mg/dL (74-106)
--- NOTE | 2018-08-10 22:52 | NUR ---
DR LUCAS ON PHONE WITH DR BOYD
[2018-08-10] MEDS ORDERED: PROPOFOL 100 ML IV ONE (22:54)
[2018-08-10] MEDS ORDERED: Magnesium 1GM/D5W 100ML PREMIX 200 ML IV ONE (22:59)
[2018-08-10] MEDS ORDERED: INSULIN REGULAR, HUMAN 100 UNIT in IV NS 0.9% 99 ML IV PRN ×2 (23:00)
[2018-08-10] MEDS ORDERED: IV NS 0.9% 1,000 ML BAG IV ONE (23:00)
[2018-08-10] MEDS ORDERED: HYDROCORTISONE SOD SUCCINATE 100 MG/2 ML VIAL IV ONE (23:00)
[2018-08-10] MEDS: Magnesium 1GM/D5W 100ML PREMIX 100 ML IV SCH ×2 (23:00→23:32)
[2018-08-10] MEDS ORDERED: VANCOMYCIN 1 GM in IV D5W 250 ML IV ONE (23:00)
[2018-08-10] MEDS ORDERED: CEFEPIME 1 GM in IV D5W 50 ML IV ONE (23:00)
[2018-08-10] MEDS ORDERED: FENTANYL CITRAT IV 2,500 MCG in IV NS 0.9% 200 ML IV PRN (23:00)
[2018-08-10] MEDS ORDERED: MIDAZOLAM HCL 100 MG in IV NS 0.9% 80 ML IV PRN (23:00)
[2018-08-10] MEDS ORDERED: NOREPINEPHRINE 8 MG in IV D5W 500 ML IV ONE (23:00)
[2018-08-10 23:18] LABS: MAGNESIUM 2.5 mg/dL (1.8-2.4); PHOSPHORUS 7.4 mg/dL (2.5-4.9)
[2018-08-10] MEDS ORDERED: CEFEPIME 1 GM VIAL ONE (23:52)
[2018-08-10 23:54] VITALS: BP 155/103
[2018-08-10] MEDS ORDERED: INSULIN REGULAR, HUMAN 100 UNIT/ML 10 ML VIAL ONE (23:54)
[2018-08-10] MEDS ORDERED: VANCOMYCIN 1 GM VIAL ONE (23:55)
[2018-08-10] MEDS ORDERED: HYDROCORTISONE SOD SUCCINATE 100 MG/2 ML VIAL ONE (23:55)
[2018-08-11] VITALS (63 sets, daily range): BP systolic 37–244; BP diastolic 36–104
[2018-08-11] MEDS ORDERED: ACETAMINOPHEN 650 MG/SUPP.RECT RC PRN
[2018-08-11] MEDS ORDERED: ONDANSETRON HCL/PF 4 MG/2 ML VIAL IVP PRN
[2018-08-11] MEDS ORDERED: Z GUARD REMEDY 2 OZ OINT TP PRN
--- NOTE | 2018-08-11 00:20 | NUR ---
INSULIN DRIP STARTED AT 0.05UNITS/KILOGRAM. PER BED SCALE, PT WEIGHS 66KG. DLN=[id number].
--- NOTE | 2018-08-11 00:30 | NUR ---
PER DR. LUCAS'S ORDER TO WITHDRAW ET TUBE BY 1CM. RT NOTIFIED
[2018-08-11 00:36] LABS: THYROID STIMULATING HORMONE 30.937 uIU/mL (0.358-3.74)
[2018-08-11 00:37] LABS: APPEARANCE,URINE CLEAR (CLEAR); BILIRUBIN,URINE NEGATIVE (NEGATIVE); BLOOD, URINE 1+ Ery/uL (NEGATIVE); COLOR,URINE YELLOW (YELLOW); KETONES,URINE NEGATIVE (NEGATIVE); LEUKOCYTE ESTERASE ,URINE TRACE (NEGATIVE); NITRITE, URINE NEGATIVE (NEGATIVE); PROTEIN,URINE 1+ mg/dl (NEGATIVE); UGLUCOSE 3+ mg/dL (NEGATIVE); UROBILINOGEN,URINE 0.2 EU/dL (0.2)
[2018-08-11 00:39] LABS: BACTERIA,URINE None seen /HPF (None Seen); SQUAMOUS EPITHELIAL CELL,UR Few /HPF (None Seen); WBC,URINE 0-2 /HPF (0-3)
[2018-08-11] MEDS ORDERED: IV NS 0.9% 1,000 ML IV PRN ×2 (01:00→02:30)
--- NOTE | 2018-08-11 01:07 | NUR ---
SPOKE WITH MISTI GARRETT DNP REGARDING SEDATION. ER OMNICELL IS NOT STOCKED WITH ENOUGH VERSED OR FENTANYL TO MIX A DRIP WITH. PER TAMI, OK TO CONTINUE PROPOFOL FOR SEDATION AND TITRATE LEVOPHED PRN TO MAINTAIN APPROPRIATE BP. F/U WITH PHARMACY IN AM. ER OMNICELL NOT STOCKED WITH LEVOTHYROXINE INJECTABLE, WILL F/U WITH PARTITION ASSEMBLER
--- NOTE | 2018-08-11 01:15 | NUR ---
PT TRANSPORTED TO ICU RM 260 IN CRITICAL CONDITION VIA ACLS PROTOCOL WITH EMT, PRIMARY RN, SQUASH CENTRE MANAGER, AND RT. BEDSIDE REPORT GIVEN TO VARUN LAMB.
--- NOTE | 2018-08-11 01:15 | NUR ---
RT Pt transported to ICU in critical condition. Vent plugged into red outlet w ambubag @ hob. Alarms are set and audible. Pt sx'd w no adverse reactions. Will continue to monitor.
[2018-08-11] MEDS ORDERED: LEVOTHYROXINE INJ 100 MCG VIAL IV ONE ×3 (01:42→04:00)
--- NOTE | 2018-08-11 01:42 | NUR ---
CALLED NURSING PERSONNEL CLERKS SUPERVISOR REGARDING AFTER HOURS PHARMACY. ICU OMNICELL IS STOCKED WITH ONLY 200MCG SYNTHROID INJECTABLE. SPOKE WITH DR AGUSTIN WHO INSTRUCTS STAFF TO ADMINISTER 200MCG NOW AND F/U WITH PHARMACY FOR STAT DELIVERY OF MORE SYNTHROID. SANTOS, NURSING PERSONNEL CLERKS SUPERVISOR, STATES HE WILLCALL AFTER HOURS PHARMACIST FOR SYNTHROID, FENTANYL DRIP, AND VERSED DRIP.
--- NOTE | 2018-08-11 01:46 | NUR ---
ADMINSTERED LEVOTHYROXINE 200MCG IVP, DR. AGUSTIN ORDERED 500MCG, STOCK AVAILABLE 200MCG, PER DR. AGUSTIN GIVE LEVOTHYROXINE 200MCG NOW AND FOLLOW UP FOR REMAINING DOSE. UNABLE TO ADMISTER ON EMAR AT THIS TIME.
--- NOTE | 2018-08-11 01:50 | NUR ---
RECEIVED PT IN CRITICAL CONDITION IN [facility] AND TRANSFERRED TO ICU BED. PT IS SEDATED ON DIPRIVAN. PT IS MECHANICAL VENT VIA ETT TUBE. ETT TUBE IS CLEAN DRY AND INTACT. PT TOLERATIN VENT SETTING WHICH ARE AT AC 16, TV 450, FIO2 100%, PEEP 5. PT IS ON TELE WITH SB @ 24 ON THE MONITOR. PT HAS TRANSVENOUS WIRES IN THE RIGHT EJ TO THE TRANSVENOUS PACER BOX WITH SETTING @ RATE 80, MA 10. PT HAS F/C THAT IS CLEAN DRY INTACT AND PATENT WITH YELLOW URINE DRAINING. PT HAS LEFT FEMORAL TLC WITH DIPRIVAN @ 25MCG, LEVO @ 10MCG, D5NS @ 75ML/HR. BED IN LOW LOCK POSITION WITH RAILS UP X 2. CALL LIGHT WITHIN REACH AND ALL SAFETY MEASURES ENSURED AND CARRIED OUT. WILL CONTINUE TO MONITOR PT.
--- NOTE | 2018-08-11 01:50 | NUR ---
PT ARRIVED TO UNIT ON PROPOFOL DRIP @ 25MCG AND WAS TOLD TO CHANGE TO VERSED AND FENTANYL IF MEDICATION IS AVAILABLE. WILL CONTINUE PT ON PROPOFOL TILL MEDICATION ARRIVES.
--- NOTE | 2018-08-11 01:50 | NUR ---
Nena amaya in [facility] - 08/11/18 at 0221 by FABIAN TRANSFERRED PT TO ICU VIA ACLS PROTOCOL
[2018-08-11] MEDS ORDERED: INSULIN REGULAR, HUMAN 100 UNIT in IV NS 0.9% 99 ML IV PRN ×2 (02:30)
[2018-08-11] MEDS ORDERED: NOREPINEPHRINE 16 MG in IV D5W 500 ML IV PRN (02:30)
[2018-08-11] MEDS: BLOOD SUGAR DIAGNOSTIC 1 EACH STRIP IN SCH ×10 (04:34→21:37)
--- NOTE | 2018-08-11 04:35 | NUR ---
MEDICATIONS VERSED AND FENTANYL ARRIVED ON UNIT WILL ADMINISTER MEDICATION AND BEGIN TO TITRATE PROPOFOL DOWN TO 0 AND HOLD.
--- NOTE | 2018-08-11 04:35 | NUR ---
RECEIVED REMAINING 300MCG OF SYNTHROID FROM PHARMACY. SCANNED ALL 500MCG AT THIS TIME DUE TO KIKO RN UNABLE TO SCAN 200MCG GIVEN @ 0146. PT RECEIVED TOTAL DOSE OF 500MCG BETWEEN BOTH DOSES BY ZAINAB SENIOR MEDIA DIRECTOR AND KIKO ED RN. CHARGE NURSE NOTIFIED
[2018-08-11] MEDS ORDERED: PROPOFOL 100 ML IV PRN (05:00)
[2018-08-11 05:01] LABS: BASOPHILS % (AUTO) 0.1 % (0.0-2.0); EOSINOPHILS % (AUTO) 0.1 % (0.0-6.0); HEMATOCRIT 25 % (33-45); HEMOGLOBIN 8.4 g/dL (11.5-14.8); LYMPHOCYTES # (AUTO) 0.6 /CMM (0.8-4.8); LYMPHOCYTES % (AUTO) 15.3 % (20.0-44.0); MEAN CORPUSCULAR HGB CONC 34 g/dl (31.0-36.0); MEAN CORPUSCULAR VOLUME 93 fL (82-100); MONOCYTES # (AUTO) 0.3 /CMM (0.1-1.30); MONOCYTES % (AUTO) 7.5 % (2.0-12.0); PLATELET COUNT (AUTO) 163 /CMM (150-450); RED BLOOD CELL COUNT(AUTO) 2.64 MIL/uL (4.0-5.2)
[2018-08-11 05:16] LABS: ALANINE AMINOTRANSFERASE 184 U/L (12-78); ALBUMIN 2.4 g/dL (3.4-5.0); ALKALINE PHOSPHATASE 325 U/L (46-116); ASPARTATE AMINOTRANSFERASE 136 U/L (15-37); B-TYPE NATRIURETIC PEPTIDE 4420 PG/ML (0-125); BILIRUBIN,TOTAL 0.6 mg/dL (0.2-1.0); CALCIUM, SERUM 8.2 mg/dL (8.5-10.1); CARBON DIOXIDE 16 mmol/L (21-32); CHLORIDE 104 mmol/L (98-107); CREATININE 2.6 mg/dL (0.6-1.3); GLUCOSE 310 mg/dL (74-106); MAGNESIUM 2.8 mg/dL (1.8-2.4); PHOSPHORUS 4.1 mg/dL (2.5-4.9); POTASSIUM 3.7 mmol/L (3.5-5.1); SODIUM SERUM 136 mmol/L (136-145); TOTAL PROTEIN, SERUM 6.1 g/dL (6.4-8.2); UREA NITROGEN, BLOOD 59 mg/dL (7-18)
[2018-08-11 05:31] LABS: CHOLESTEROL 131 mg/dL (<200); HDL CHOLESTEROL 59 mg/dL (40-60); LDL 52 mg/dL (0-99); THYROID STIMULATING HORMONE 15.257 uIU/mL (0.358-3.74); TRIGLYCERIDES 105 mg/dL (30-150)
--- NOTE | 2018-08-11 07:15 | NUR ---
RN INITIAL NOTES RECEIVED PT INTUBATED, ON VENT. NO RESPIRATORY DISTRESS NOTED. NO SOB NOTED. HOB ELEVATED. NO SIGNS OF PAIN NOTED. PT SEDATED. ON VERSED AT 1MG/HR AND FENTANYL 25MCG/HR. LEFT FEMORAL TLC IN PLACE. PT ON INSULIN DRIP, BLOOD GLUCOSE CHECK Q1. TRANSVENOUS PACEMAKER ON RIJ IN PLACE. PT REMAINS BRADYCARDIC, 40S. AWAITING CARDIAC CONSULT. WILL KEEP PT COMFORTABLE. WILL CLOSELY MONITOR.
--- NOTE | 2018-08-11 07:27 | NUR ---
PT REMAINS IN NO ACUTE DISTRESS IN BED. PT HR AND TEMP ARE INCREASING. PT IS SEDATED ON VERSED AND FENTANYL. ALL NEEDS MET, ALL ORDERS CARRIED OUT. WILL ENDORSE CARE TO AM RN FOR CONTINUITY OF CARE.
[2018-08-11] MEDS: PANTOPRAZOLE 40 MG VIAL IV SCH (08:13)
[2018-08-11] MEDS ORDERED: FEE PK DOSING 1 MIN EA MC ONE (08:15)
[2018-08-11] MEDS ORDERED: ATROPINE SULFATE 1 MG/10 ML DISP.SYRIN IV ONE (08:19)
[2018-08-11] MEDS ORDERED: ROCURONIUM BROMIDE 50 MG/5 ML IV ONE (08:20)
--- NOTE | 2018-08-11 09:00 | NUR ---
RN NOTES 0800 SEEN AND EXAMINED BY DR BOYD. REVIEWED H&P, LATEST LAB VALUES AND IMAGING STUDIES. PT REMAINS BRADYCARDIC, 40S. TRANSVENOUS PACEMAKER ON. WILL CLOSELY MONITOR 0845 SEEN AND EXAMINED BY DR VASQUEZ. AWARE OF LATEST LA VALUES: HGB 8.4, HCT 25, PLATELET 163, BUN 59, CREA 2.6. MD ALSO AWARE OF IMAGING STUDIES. PT ON FENTANYL AND VERSED DRIP. ON INSULIN DRIP, TITRATED PER PROTOCOL. BMP AT 1000. WILL MONITOR. 0900 SEEN AND EXAMINED BY DR COLIN. AWARE OF PT'S STATUS. PT INTUBATED, TOLERATING VENT WELL. PT SEDATED. AWARE OF ABG RESULT. WILL CONTINUE TO MONITOR.
[2018-08-11] MEDS ORDERED: CALCIUM CHLORIDE 1,000 MG/10 ML DISP.SYRIN IV ONE (09:57)
[2018-08-11] MEDS ORDERED: SODIUM BICARBONATE SYR 50 MEQ/50 ML DISP.SYRIN IV ONE (09:57)
--- NOTE | 2018-08-11 10:00 | NUR ---
RN NOTES CALLED DR VASQUEZ REGARDING BLOOD SUGAR CHECK RESULT, 83. INSULIN DRIP STOPPED. BMP DONE, ANION GAP 16. PT ON NS AT 75ML/HR. LEFT A MESSAGE. AWAITING FOR CALL BACK.
[2018-08-11 10:25] LABS: CARBON DIOXIDE 18 mmol/L (21-32); CHLORIDE 110 mmol/L (98-107); CREATININE 2.7 mg/dL (0.6-1.3); GLUCOSE 88 mg/dL (74-106); POTASSIUM 4.2 mmol/L (3.5-5.1); SODIUM SERUM 140 mmol/L (136-145); UREA NITROGEN, BLOOD 61 mg/dL (7-18)
[2018-08-11] MEDS: NITROGLYCERIN 30 GM TUBE TP SCH ×2 (10:34→21:37)
[2018-08-11] MEDS ORDERED: FENTANYL CITRAT IV 2,500 MCG in IV NS 0.9% 200 ML IV PRN (11:00)
[2018-08-11 11:02] LABS: ABG BASE EXCESS -10.6 mmol/L; ABG OXYGEN SATURATION 97.6 % (92.0-98.5); ABG PCO2 28.6 mmHg (35.0-45.0); ABG PH 7.319 (7.350-7.450); ABG PO2 122.9 mmHg (75.0-100.0); AaDO2 129.4 mmHg; COHb 0.2 % (0.5-1.5); O2Hb 96.4 % (94.0-97.0); PEEP,BG 5 cm H2O; SITE, ABG Right Radial
[2018-08-11 11:04] LABS: ABG BASE EXCESS -16.8 mmol/L; ABG OXYGEN SATURATION 99.5 % (92.0-98.5); ABG PCO2 23.4 mmHg (35.0-45.0); ABG PH 7.218 (7.350-7.450); ABG PO2 546.1 mmHg (75.0-100.0); AaDO2 143.5 mmHg; COHb 0.3 % (0.5-1.5); MetHb 0.5 % (0.0-1.5); O2Hb 98.7 % (94.0-97.0); PEEP,BG 5 cm H2O; SITE, ABG Right Radial
[2018-08-11] MEDS: MIDAZOLAM HCL 100 MG in IV NS 0.9% 80 ML IV PRN (11:12)
[2018-08-11] MEDS ORDERED: DEXTROSE 50%-WATER 50 ML DISP.SYRIN IV PRN (11:30)
[2018-08-11] MEDS: IV D5/ 0.9% NACL 1,000 ML IV PRN (11:35)
[2018-08-11] MEDS ORDERED: BLOOD SUGAR DIAGNOSTIC 1 EACH STRIP IN SCH (12:00)
[2018-08-11 12:11] LABS: ABG BASE EXCESS -11.4 mmol/L; ABG OXYGEN SATURATION 97.1 % (92.0-98.5); ABG PCO2 25.4 mmHg (35.0-45.0); ABG PH 7.333 (7.350-7.450); ABG PO2 111.8 mmHg (75.0-100.0); AaDO2 72.3 mmHg; COHb 0.4 % (0.5-1.5); MetHb 0.7 % (0.0-1.5); PEEP,BG 5 cm H2O; SITE, ABG Right Radial
[2018-08-11] MEDS: FENTANYL CITRAT IV 2,500 MCG in IV NS 0.9% 200 ML IV PRN (13:23)
--- NOTE | 2018-08-11 18:41 | NUR ---
RN CLOSING NOTES NO SIGNIFICANT CHANGE NOTED. PT REMAINS INTUBATED, ON VENT. NO RESPIRATORY DISTRESS NOTED. NO SIGNS OF PAIN NOTED. PT REMAINS SEDATED. ON FENTANYL AND VERSED DRIP, TITRATED ACCORDINGLY. KEPT CLEAN AND DRY. REPOSITIONED Q2. KEPT BLE ELEVATED. KEPT COMFORTABLE. WILL ENDORSE FOR CONTINUITY OF CARE.
--- NOTE | 2018-08-11 20:11 | NUR ---
RECEIVED PT INTUBATED 7.5 ETT SECURED AT 21CM AT THE LIP. NO RESP DISTRESS NOTED. PT TOLERATING VENT SETTINGS. SHANTANU SPAULDING. SX'D FOR SML AMT OF THICK PALE SECRETIONS. VENT ALARMS SET AND AUDIBLE. AMBU BAG AT BEDSIDE. VENT PLUGGED INTO RED OUTLET. WILL CONTINUE TO MONITOR. Addendum: 08/11/18 at 2013 by DAVID ARGUETA RT Amended: Links added.
[2018-08-11] MEDS: INSULIN REGULAR, HUMAN 100 UNIT/ML 3 ML VIAL SQ PRN (21:44)
--- NOTE | 2018-08-11 21:50 | NUR ---
RECEIVED PRELIMINARY RESULTS OF BLOOD CULTURE OF GRAM (+) COCCI CLUSTERS.
[2018-08-11] MEDS: CEFEPIME 1 GM in IV NS 0.9% 50 ML IV SCH (23:25)
[2018-08-12] VITALS (59 sets, daily range): BP systolic 105–179; BP diastolic 40–95
[2018-08-12] MEDS: VANCOMYCIN 500 MG in IV D5W 100 ML IV SCH (00:38)
[2018-08-12] MEDS: BLOOD SUGAR DIAGNOSTIC 1 EACH STRIP IN SCH ×6 (01:06→22:07)
[2018-08-12] MEDS: IV D5/ 0.9% NACL 1,000 ML IV PRN (03:47)
[2018-08-12 04:55] LABS: BASOPHILS % (AUTO) 0.4 % (0.0-2.0); EOSINOPHILS % (AUTO) 0.8 % (0.0-6.0); HEMATOCRIT 22 % (33-45); HEMOGLOBIN 7.3 g/dL (11.5-14.8); LYMPHOCYTES # (AUTO) 1.8 /CMM (0.8-4.8); LYMPHOCYTES % (AUTO) 25.9 % (20.0-44.0); MEAN CORPUSCULAR HGB CONC 33 g/dl (31.0-36.0); MEAN CORPUSCULAR VOLUME 93 fL (82-100); MONOCYTES # (AUTO) 0.7 /CMM (0.1-1.30); MONOCYTES % (AUTO) 9.7 % (2.0-12.0); NEUTROPHILS # (AUTO) 4.3 /CMM (1.8-8.9); NEUTROPHILS % (AUTO) 63.2 % (43.0-81.0); PLATELET COUNT (AUTO) 158 /CMM (150-450); RED BLOOD CELL COUNT(AUTO) 2.35 MIL/uL (4.0-5.2); WHITE BLOOD COUNT (AUTO) 6.9 K/uL (4.3-11.0)
[2018-08-12 05:08] LABS: ALANINE AMINOTRANSFERASE 133 U/L (12-78); ALKALINE PHOSPHATASE 238 U/L (46-116); ASPARTATE AMINOTRANSFERASE 52 U/L (15-37); BILIRUBIN,TOTAL 0.3 mg/dL (0.2-1.0); CALCIUM, SERUM 7.7 mg/dL (8.5-10.1); CARBON DIOXIDE 16 mmol/L (21-32); CHLORIDE 112 mmol/L (98-107); CREATININE 2.8 mg/dL (0.6-1.3); GLUCOSE 125 mg/dL (74-106); MAGNESIUM 2.3 mg/dL (1.8-2.4); POTASSIUM 3.8 mmol/L (3.5-5.1); SODIUM SERUM 140 mmol/L (136-145); TOTAL PROTEIN, SERUM 5.3 g/dL (6.4-8.2); UREA NITROGEN, BLOOD 59 mg/dL (7-18)
--- NOTE | 2018-08-12 07:15 | NUR ---
RN INITIAL NOTES RECEIVED PT INTUBATED, ON VENT. NO RESPIRATORY DISTRESS NOTED. NO SOB NOTED. HOB ELEVATED. NO SIGNS OF PAIN NOTED. PT SEDATED. ON VERSED AT 2MG/HR AND FENTANYL 25MCG/HR. LEFT FEMORAL TLC IN PLACE. TRANSVENOUS PACEMAKER ON RIJ IN PLACE, NOT SENSING NOR CAPTURING. PT STILL BRADYCARDIC, 40S. FC IN PLACE. NO HEMATURIA NOTED. WILL KEEP PT COMFORTABLE. WILL CLOSELY MONITOR.
[2018-08-12] MEDS: FENTANYL CITRAT IV 2,500 MCG in IV NS 0.9% 200 ML IV PRN (07:26)
[2018-08-12] MEDS: MIDAZOLAM HCL 100 MG in IV NS 0.9% 80 ML IV PRN (07:28)
[2018-08-12] MEDS: PANTOPRAZOLE 40 MG VIAL IV SCH (08:10)
[2018-08-12] MEDS: NITROGLYCERIN 30 GM TUBE TP SCH ×2 (08:10→22:08)
[2018-08-12 08:54] LABS: ABG BASE EXCESS -11.2 mmol/L; ABG PCO2 28.9 mmHg (35.0-45.0); ABG PH 7.305 (7.350-7.450); ABG PO2 106.9 mmHg (75.0-100.0); COHb 0.7 % (0.5-1.5); MetHb 0.8 % (0.0-1.5); O2Hb 95.5 % (94.0-97.0); PEEP,BG 5 cm H2O; SITE, ABG Right Brachial; VENT MODE, BG AC 16 450 +5; VT, ABG 450 mL
--- NOTE | 2018-08-12 12:00 | NUR ---
RN NOTES SEEN AND EXAMINED BY DR VASQUEZ. AWARE OF CURRENT LAB VALUES AND CXR RESULT. PT OFF VERSED AND FENTANYL DRIP. PT RESPONDS TO VERBAL AND TACTILE STIMULI. FOLLOW SIMPLE COMMANDS. NO RESPIRATORY DISTRESS NOTED. NO AGITATION NOTED. AWAITING FOR DR COLIN. WILL CONTINUE TO MONITOR.
--- NOTE | 2018-08-12 15:00 | NUR ---
RN NOTES DR COLIN IN THE UNIT, MADE AWARE THAT PT IS OFF VERSED AND FENTANYL DRIP. PT OPENS EYES ON VERBAL AND TACTILE STIMULI. ABLE TO FOLLOW SIMPLE COMMANDS. VS WNL. NO RESPIRATORY DISTRESS NOTED. NO AGITATION NOTED. KEPT HOB ELEVATED. NO SIGNS OF PAIN NOTED. PER MD, BINA FENTANYL AND VERSED DRIP. ORDERED ATIVAN 1MG IVP Q3 PRN. WILL CLOSELY MONITOR.
[2018-08-12] MEDS: LORAZEPAM INJ 2 MG/ML VIAL IV PRN (15:52)
[2018-08-12] MEDS ORDERED: IV NS 0.9% 250 ML BAG IV PRN (16:30)
[2018-08-12] MEDS: hydrALAZINE HCL IV 20 MG VIAL IV PRN (18:18)
--- NOTE | 2018-08-12 18:37 | NUR ---
RN CLOSING NOTES NO SIGNIFICANT CHANGE NOTED. PT REMAINS INTUBATED, ON VENT. NO RESPIRATORY DISTRESS NOTED. NO SIGNS OF PAIN NOTED. KEPT CLEAN AND DRY. REPOSITIONED Q2. KEPT BLE ELEVATED. KEPT COMFORTABLE. WILL ENDORSE FOR CONTINUITY OF CARE.
--- NOTE | 2018-08-12 19:00 | NUR ---
PHOTOGRAPH INSPECTOR NOTES RECEIVED PATIENT ORALLY INTUBATED ON TNE VENTILATOR ON AC MODE,NOT IN NAY DISTRESS,BREATHING REGULAR AND NON LABORED.WITH TRANSVENOUS PACING WIRES VIA RIGHT IJ CORDIS PORT(BUT NOTED WIRE TO BE OUT JUST HANGING INSIDE THE SHEATH )-TO PACEMAKER BOX (ONLY ATRIAL WIRE CONNECTED) SET AT 30 MA. PATIENT RESPONSIVE(+) STRONG COUGH AND GAG,GRIMACING TRYING TO TALK,FOLLOWS SIMPLE COMMANDS,MOVING ALL EXTREMITIES.TLC @ LEFT FEMORAL AREA,(HAS BEEN OFF SEDATION SINCE AM),MAINTAINED ON BILATERAL SOFT WRIST RESTRAINTS. COMFORT CARE DONE,NEEDS ATTENDED. 1999 NOXIOUS WEEDS AND PEST INSPECTOR DISCONNECTED THE TRANSVENOUS WIRE FROM THE PACEMAKER BOX.(SINCE IT HAS NOT BEEN EFFECTIVELY WORKING ENDORSED BY AM SHIFT)
[2018-08-12] MEDS: CEFEPIME 1 GM in IV NS 0.9% 50 ML IV SCH (22:08)
[2018-08-13] VITALS (53 sets, daily range): BP systolic 120–167; BP diastolic 54–87
--- NOTE | 2018-08-13 | NUR ---
DIAGNOSTIC TECHNOLOGIST NOTES STATUS UNCHANGED,OCCASIONALLY GETTING A LITTLE AGITATED.PRN ATIVAN GIVEN.BP WELL IN THE 160'S. O1OO BP SYSTOLIC STILL IN THE 160'S DESPITE GIVEN SEDATION. PRN HYDRALAZINE IV GIVEN.
[2018-08-13] MEDS: LORAZEPAM INJ 2 MG/ML VIAL IV PRN ×4 (00:08→20:01)
[2018-08-13] MEDS: VANCOMYCIN 500 MG in IV D5W 100 ML IV SCH (00:13)
[2018-08-13] MEDS: BLOOD SUGAR DIAGNOSTIC 1 EACH STRIP IN SCH ×6 (00:51→21:05)
[2018-08-13] MEDS: hydrALAZINE HCL IV 20 MG VIAL IV PRN ×2 (01:03→14:45)
--- NOTE | 2018-08-13 04:05 | NUR ---
PRODUCT AMBASSADOR NOTES REMAINS STABLE,VERY ALERT,WITH PERODS OF AGITATION BUT EASILY CALMS DOWN.AM BATH/SKIN CAR DONE.
[2018-08-13 04:31] LABS: BASOPHILS # (AUTO) 0.1 /CMM (0.0-0.2); BASOPHILS % (AUTO) 0.8 % (0.0-2.0); EOSINOPHILS % (AUTO) 1.3 % (0.0-6.0); HEMATOCRIT 24 % (33-45); HEMOGLOBIN 7.9 g/dL (11.5-14.8); LYMPHOCYTES # (AUTO) 1.2 /CMM (0.8-4.8); LYMPHOCYTES % (AUTO) 17.2 % (20.0-44.0); MEAN CORPUSCULAR HGB CONC 33 g/dl (31.0-36.0); MEAN CORPUSCULAR VOLUME 94 fL (82-100); MONOCYTES # (AUTO) 0.8 /CMM (0.1-1.30); MONOCYTES % (AUTO) 10.9 % (2.0-12.0); NEUTROPHILS # (AUTO) 4.9 /CMM (1.8-8.9); NEUTROPHILS % (AUTO) 69.8 % (43.0-81.0); PLATELET COUNT (AUTO) 174 /CMM (150-450); RED BLOOD CELL COUNT(AUTO) 2.58 MIL/uL (4.0-5.2)
[2018-08-13 04:36] LABS: CARBON DIOXIDE 16 mmol/L (21-32); CHLORIDE 114 mmol/L (98-107); CREATININE 2.7 mg/dL (0.6-1.3); GLUCOSE 123 mg/dL (74-106); MAGNESIUM 2.2 mg/dL (1.8-2.4); POTASSIUM 3.8 mmol/L (3.5-5.1); SODIUM SERUM 144 mmol/L (136-145); UREA NITROGEN, BLOOD 52 mg/dL (7-18)
--- NOTE | 2018-08-13 06:20 | NUR ---
ANIMAL SCIENCE PROFESSOR NOTES TRANSVENOUS WIRE PULLED OUT PER .LEFT CORDIS PORT IN PLACE.
--- NOTE | 2018-08-13 07:00 | NUR ---
REPOPRT GIVEN TO AFSATU RN.PATIENT REMAINS STABLE,AWAKE.STILL INTUBATED.
--- NOTE | 2018-08-13 07:23 | NUR ---
BUSINESS AREA DIRECTOR OPENING NOTES RECEIVED PT FROM NIGHTSHIFT RN IN STABLE CONDITION. PT RESPONSIVE TO VERBAL AND TACTILE STIMULI PT ABLE T OPEN EYES AND SQUEEZE MY HANDS WHEN PROMPTED. PT INTUBATED. VENT SETTING CHECKED FOR ACCURACY. PT TOLERATING SETTINGS WELL (AC 16, TV 450, FIO2 30%, PEEP 5). LEFT FEMORAL TRIPLE LUMEN CATHETER NOTED TO BE INTACT AND PATENT. NO REDNESS OR SIGNS OF INFILTRATION NOTED.. VSS AT THIS TIME. PT CURRENTLY SR ON THE TELE MONITOR WITH A HR OF 86. KRAMER CATHETER NOTED TO BE INTACT AND DRAINING TO GRAVITY. BED IN LOW LOCKED POSITION, SIDE RAILS UP X3, JESSICA LIGHT WITHIN REACH. BILATERAL SOFT WRIST RESTRAINTS NOTED. GOOD CAP REFILL AND CAP REFILL NOTED TO UPPER AND LOWER EXTREMITIES. WILL CONTINUE TO MONITOR
--- NOTE | 2018-08-13 07:50 | NUR ---
RT PATIENT REC'D ORALLY INTUBATED ON THE [facility] VENT WITH ORDERED SETTINGS CORBIN WELL. VENT ALARMS CHECKED + AUDIBLE. CUFF PRESSURE CHECKED BUSHLER. PATIENT AIRWAY CHECKED AND PATENT. PATIENT SUCTIONED WITH SMALL AMT OF PALE SEMITHICK SECRETIONS. PATIENT RESPONSIVE TO VERBAL COMMANDS, NO DISTRESS ON VENTILATOR AT THIS TIME. AMBU BAG AT [facility]. Addendum: 08/13/18 at 1146 by MILAN WHITAKER RT Amended: Links added.
[2018-08-13 08:07] LABS: ABG BASE EXCESS -10.3 mmol/L; ABG OXYGEN SATURATION 98.1 % (92.0-98.5); ABG PCO2 27.1 mmHg (35.0-45.0); ABG PO2 141.1 mmHg (75.0-100.0); COHb 0.5 % (0.5-1.5); MetHb 0.7 % (0.0-1.5); O2Hb 96.9 % (94.0-97.0); SITE, ABG Right Radial
[2018-08-13] MEDS: PANTOPRAZOLE 40 MG VIAL IV SCH (09:14)
[2018-08-13] MEDS: NITROGLYCERIN 30 GM TUBE TP SCH ×2 (09:15→21:05)
[2018-08-13] MEDS: INSULIN REGULAR, HUMAN 100 UNIT/ML 3 ML VIAL SQ PRN (13:59)
--- NOTE | 2018-08-13 19:56 | NUR ---
BIOLOGICAL INSPECTOR CLOSING NOTES: REPORT GIVEN TO NORBERTO. PT. REMAINS STABLE. VSS. SAFETY MEASURES IN PLACE.
--- NOTE | 2018-08-13 20:30 | NUR ---
Received patient awake but confused, restless and agitated trying to get out of bed.Bilateral soft wrist restraints on.VS stable.SR per tele monitoring.Continued on full vent support.Secretions suctioned.Minimal output from FC.NS at TKO infusing to Left femoral TLC site intact.Ativan administered as PRN.Turned and repositioned.Continue monitoring.
--- NOTE | 2018-08-13 22:00 | NUR ---
Patient resting appears comfortable.VS stable.Turned and repositioned.
[2018-08-13] MEDS: CEFEPIME 1 GM in IV NS 0.9% 50 ML IV SCH (23:00)
[2018-08-14] VITALS (42 sets, daily range): BP systolic 111–164; BP diastolic 19–100
--- NOTE | 2018-08-14 | NUR ---
Patient restless at this time.Bed bath rendered for comfort.VS remains stable.Turned and repositioned.
[2018-08-14] MEDS: VANCOMYCIN 500 MG in IV D5W 100 ML IV SCH (00:07)
[2018-08-14] MEDS: BLOOD SUGAR DIAGNOSTIC 1 EACH STRIP IN SCH ×6 (01:02→21:13)
[2018-08-14] MEDS: INSULIN REGULAR, HUMAN 100 UNIT/ML 3 ML VIAL SQ PRN ×6 (01:04→21:15)
[2018-08-14] MEDS: LORAZEPAM INJ 2 MG/ML VIAL IV PRN (03:17)
[2018-08-14 04:47] LABS: BASOPHILS % (AUTO) 0.3 % (0.0-2.0); EOSINOPHILS % (AUTO) 0.1 % (0.0-6.0); HEMATOCRIT 22 % (33-45); HEMOGLOBIN 7.3 g/dL (11.5-14.8); LYMPHOCYTES % (AUTO) 15.2 % (20.0-44.0); MEAN CORPUSCULAR HGB CONC 33 g/dl (31.0-36.0); MEAN CORPUSCULAR VOLUME 94 fL (82-100); MONOCYTES # (AUTO) 0.7 /CMM (0.1-1.30); MONOCYTES % (AUTO) 11.1 % (2.0-12.0); NEUTROPHILS # (AUTO) 4.9 /CMM (1.8-8.9); NEUTROPHILS % (AUTO) 73.3 % (43.0-81.0); PLATELET COUNT (AUTO) 164 /CMM (150-450); RED BLOOD CELL COUNT(AUTO) 2.37 MIL/uL (4.0-5.2); WHITE BLOOD COUNT (AUTO) 6.6 K/uL (4.3-11.0)
[2018-08-14 05:05] LABS: CALCIUM, SERUM 7.8 mg/dL (8.5-10.1); CREATININE 2.8 mg/dL (0.6-1.3); GLUCOSE 139 mg/dL (74-106); UREA NITROGEN, BLOOD 49 mg/dL (7-18)
[2018-08-14 05:11] LABS: CARBON DIOXIDE 17 mmol/L (21-32); CHLORIDE 116 mmol/L (98-107); POTASSIUM 3.8 mmol/L (3.5-5.1); SODIUM SERUM 146 mmol/L (136-145)
--- NOTE | 2018-08-14 06:53 | NUR ---
Patient status unchanged.FSBS monitored Q 4 hrs and coverage given per SS.All due medications administered.Received 2 doses of Ativan for agitation.Kept comfortable.VS remains stable.Will endorse to day shift for continuity of care.
[2018-08-14 08:40] LABS: ABG BASE EXCESS -8.6 mmol/L; ABG OXYGEN SATURATION 98.1 % (92.0-98.5); ABG PCO2 28.2 mmHg (35.0-45.0); ABG PH 7.366 (7.350-7.450); ABG PO2 140.1 mmHg (75.0-100.0); AaDO2 40.7 mmHg; COHb 1.1 % (0.5-1.5); SITE, ABG Right Radial; VENT MODE, BG SIMV 4 450 PSV 15 30% +5
--- NOTE | 2018-08-14 09:25 | NUR ---
Pt placed on 28% CA per Dr. Toledo. Addendum: 08/14/18 at 0984 by FLAKO CROOKS RT Amended: Links added.
[2018-08-14] MEDS: PANTOPRAZOLE 40 MG VIAL IV SCH ×2 (09:34→09:37)
[2018-08-14] MEDS: NITROGLYCERIN 30 GM TUBE TP SCH ×2 (09:43→21:04)
[2018-08-14 11:38] LABS: ABG BASE EXCESS -11.4 mmol/L; ABG OXYGEN SATURATION 97.5 % (92.0-98.5); ABG PCO2 27.2 mmHg (35.0-45.0); ABG PH 7.316 (7.350-7.450); ABG PO2 120.9 mmHg (75.0-100.0); AaDO2 46.6 mmHg; COHb 0.1 % (0.5-1.5); O2Hb 96.4 % (94.0-97.0); SITE, ABG Right Radial; VENT MODE, BG 28% CA
--- NOTE | 2018-08-14 12:11 | NUR ---
PT RECIEVED IN A.M. AWAKE AND FOLLOWING SOME COMMANDS BUT PT STILL CONFUSED/PREPARED FOR WEANING
[2018-08-14] MEDS ORDERED: ACETAMINOPHEN 325 MG TABLET PO ONE (12:30)
[2018-08-14] MEDS ORDERED: diphenhydrAMINE HCL 50 MG/ML VIAL IV ONE (12:30)
[2018-08-14] MEDS ORDERED: IV D5/ 0.9% NACL 1,000 ML IV ONE (14:00)
[2018-08-14] MEDS: hydrALAZINE HCL IV 20 MG VIAL IV PRN (20:10)
--- NOTE | 2018-08-14 20:10 | NUR ---
Received patient resting in no acute distress.On T-piece cool aerosol at 30%.SPO2 99%. Respiration even and unlabored. Secretions suctioned.SR per tele monitoring.BP elevated and PRN hydralazine administered.NPO status with IVF infusing via Left FEM TLC.Site intact. FC to gravity drainage with clear yellow urine.Turned and repositioned.Continue monitoring.
[2018-08-14] MEDS ORDERED: IV NS 0.9% 250 ML IV ONE (20:30)
--- NOTE | 2018-08-14 21:50 | NUR ---
Patient family here and consent for blood transfusion obtained.All questions answered.
[2018-08-14] MEDS ORDERED: diphenhydrAMINE HCL 50 MG/ML VIAL ONE (22:01)
[2018-08-14] MEDS ORDERED: ACETAMINOPHEN 650 MG/SUPP.RECT RC ONE ×2 (22:03→22:30)
--- NOTE | 2018-08-14 22:40 | NUR ---
One Unit PRBC started and pre medicated with Tylenol and Benadryl as ordered.VS stable.
[2018-08-14] MEDS: CEFEPIME 1 GM in IV NS 0.9% 50 ML IV SCH (23:01)
[2018-08-15] VITALS (39 sets, daily range): BP systolic 126–194; BP diastolic 67–97
[2018-08-15] MEDS: VANCOMYCIN 500 MG in IV D5W 100 ML IV SCH ×2 (00:07→23:58)
[2018-08-15] MEDS: BLOOD SUGAR DIAGNOSTIC 1 EACH STRIP IN SCH ×6 (01:09→20:51)
[2018-08-15] MEDS: INSULIN REGULAR, HUMAN 100 UNIT/ML 3 ML VIAL SQ PRN ×3 (01:11→20:51)
--- NOTE | 2018-08-15 01:15 | NUR ---
Above one unit PRBC transfused without adverse reaction noted.VS stable.Post BT labs ordered as directed.
[2018-08-15 02:05] LABS: HEMOGLOBIN 9.1 g/dL (11.5-14.8)
--- NOTE | 2018-08-15 03:00 | NUR ---
Patient awake no distress noted.Patient pulled out left femoral TLC with tip intact.No bleeding noted. Site cleansed with alcohol pad and dressing applied.Bilateral soft wrist restraints in placed.Continue monitoring.
[2018-08-15 04:47] LABS: BASOPHILS % (AUTO) 0.6 % (0.0-2.0); EOSINOPHILS % (AUTO) 0.9 % (0.0-6.0); HEMATOCRIT 28 % (33-45); HEMOGLOBIN 9.3 g/dL (11.5-14.8); LYMPHOCYTES # (AUTO) 1.3 /CMM (0.8-4.8); LYMPHOCYTES % (AUTO) 20.7 % (20.0-44.0); MEAN CORPUSCULAR HGB CONC 33 g/dl (31.0-36.0); MEAN CORPUSCULAR VOLUME 93 fL (82-100); MONOCYTES # (AUTO) 1.1 /CMM (0.1-1.30); MONOCYTES % (AUTO) 17.6 % (2.0-12.0); NEUTROPHILS # (AUTO) 3.9 /CMM (1.8-8.9); NEUTROPHILS % (AUTO) 60.2 % (43.0-81.0); PLATELET COUNT (AUTO) 168 /CMM (150-450); RED BLOOD CELL COUNT(AUTO) 3.03 MIL/uL (4.0-5.2); WHITE BLOOD COUNT (AUTO) 6.5 K/uL (4.3-11.0)
[2018-08-15 04:49] LABS: CALCIUM, SERUM 8.3 mg/dL (8.5-10.1); CARBON DIOXIDE 17 mmol/L (21-32); CHLORIDE 117 mmol/L (98-107); CREATININE 2.7 mg/dL (0.6-1.3); GLUCOSE 115 mg/dL (74-106); SODIUM SERUM 147 mmol/L (136-145); UREA NITROGEN, BLOOD 47 mg/dL (7-18)
[2018-08-15 05:19] LABS: NEUTROPHILS % (MANUAL) 70 (42-76)
[2018-08-15 05:20] LABS: MONOCYTES % (MANUAL) 15 % (0-11.0); REACTIVE LYMPHOCYTES 15 % (0-0)
--- NOTE | 2018-08-15 06:00 | NUR ---
Oral care done.Bed bath done.VS remains stable.FSBS Q 4 hrs done coverage given per sliding scale. No significant changes noted during the shift.Turned and repositioned.Kept comfortable.Will endorse to day shift for continuity of care.
[2018-08-15] MEDS ORDERED: CLONIDINE HCL 0.2MG/24H PTWK 1 EA PATCH TD SCH (07:30)
--- NOTE | 2018-08-15 08:01 | NUR ---
INITIAL FAST FOOD SHIFT LEAD NOTE RCVD PT AWAKE AND ALERT TO SELF, ABLE TO FOLLOW COMMANDS IN ROMANSH, SR ON MONITOR, NO S/O DISTRESS OBSERVED. PT MOUTHING WORDS AND STATES TO WANT WATER. PT WAS EDUCATED ON ETT AND INABILITY TO TAKE ANY PO INTAKE AT THIS TIME, ORAL CARE PERFORMED TO MOISTURIZE PT'S MOUTH. KRAMER TO GRAVITY DRAINING CLOUDY, YELLOW URINE, RIGHT AC IV INFILTRATED AND LEAKING ON ASSESSMENT. LINE DISCONTINUED. JERED ORTIZ AWARE, UNABLE TO PLACE PERIPHERAL LINE, PT'S HARD STICK. PT REMAINS NPO AT THIS TIME. WILL CONTINUE TO MONITOR PT FOR SAFETY AND COMFORT. BED IN LOW AND LOCKED POSITION. CALL LIGHT WITHIN REACH. HEAD OF BED ELEVATED.
[2018-08-15] MEDS: NITROGLYCERIN 30 GM TUBE TP SCH ×2 (08:57→20:43)
[2018-08-15 08:59] LABS: ABG BASE EXCESS -10.8 mmol/L; ABG OXYGEN SATURATION 97.4 % (92.0-98.5); ABG PCO2 31.6 mmHg (35.0-45.0); ABG PH 7.286 (7.350-7.450); ABG PO2 114.1 mmHg (75.0-100.0); AaDO2 48.3 mmHg; COHb 0.1 % (0.5-1.5); MetHb 0.5 % (0.0-1.5); O2Hb 96.8 % (94.0-97.0); SITE, ABG Right Radial; VENT MODE, BG COOL AEROSOL @ 28%
--- NOTE | 2018-08-15 11:37 | NUR ---
ASSISTANT OPERATOR NOTE PT'S CARE ENDORSED TO VARUN AGUILLON FOR CONTINUITY OF CARE. BED IN LOW AND LOCKED POSITION. CALL LIGHT WITHIN REACH. HEAD OF BED ELEVATED. BILATERAL WRIST RESTRAINTS IN PLACE. CIRCULATION CHECKS DONE. DR. VASQUEZ IN UNIT EARLIER TODAY UPDATED ON PT'S CONDITION. NO EVENTS REPORTED OVERNIGHT.
--- NOTE | 2018-08-15 11:40 | NUR ---
RN NOTES RECEIVED PT A/0X1. INTUBATED, ON VENT. NO RESPIRATORY DISTRESS NOTED. NO SOB NOTED. NO SIGNS OF PAIN NOTED. FOR MIDLINE INSERTION. FC IN PLACE. NO HEMATURIA NOTED. WILL MONITOR.
[2018-08-15] MEDS: hydrALAZINE HCL IV 20 MG VIAL IV PRN ×2 (12:17→22:12)
[2018-08-15] MEDS: LORAZEPAM INJ 2 MG/ML VIAL IV PRN (15:08)
[2018-08-15] MEDS: Sodium Acetate 150 MEQ in IV D5W 1,000 ML IV PRN (18:20)
--- NOTE | 2018-08-15 18:47 | NUR ---
RN CLOSING NOTES PT REMAINS INTUBATED. NO RESPIRATORY DISTRESS NOTED. NO SOB NOTED. NO SIGNS OF PAIN NOTED. LEFT MIDLINE IN PLACE. IVF INFUSING. FC IN PLACE. KEPT CLEAN AND DRY. REPOSITIONED Q2. KEPT COMFORTABLE. ALL NEEDS ANTICIPATED AND MET. CALL LIGHT WITHIN REACH. WILL MONITOR.
--- NOTE | 2018-08-15 19:48 | NUR ---
INSTRUCTOR PHYSICAL EDUCATION. INITIAL ASSESSMENT. RECEIVED THE PT REST ON THE BED, ORALLY INTUBATED. OPEN EYES, DOES NOT FOLLOW COMMANDS. ETT 7.5CM,LIP 21CM,OXYGEN COOL AEROSOL SAT 98%. NO ACUTE DISTRESS NOTED. HERPETOLOGIST SHOWING NSR. IV LT UPPER ARM MID LINE. IVF D5WIN 150SODIUM ACETATE. 80ML/H,FC PATENT. ANIRUDH SOFT WRIST RESTRAINT CHECKED AND RELEASED. NO INJURY OR REDNESS NOTED. HOB ELEVATED. WILL CONTINUE TO MONITOR VITALS.
--- NOTE | 2018-08-15 19:53 | NUR ---
RT PATIENT REC'D ON ETT WITH T-PIECE @28%. NO SOB, NO RESPIRATORY DISTRESS NOTED AT THIS TIME. ETT PATENT, SECURE, AND IN PLACE. AMBU BAG AND VENT BY BEDSIDE. PT SX'D. CUFF PRESSURE CHECKED. WILL CONTINUE TO MONITOR. Addendum: 08/15/18 at 1953 by MADELIN HENDRICKSON RT Amended: Links added.
[2018-08-15] MEDS: CEFEPIME 1 GM in IV NS 0.9% 50 ML IV SCH (23:24)
[2018-08-16] VITALS (55 sets, daily range): BP systolic 133–184; BP diastolic 60–95
[2018-08-16] MEDS: BLOOD SUGAR DIAGNOSTIC 1 EACH STRIP IN SCH ×6 (00:53→20:55)
[2018-08-16] MEDS: INSULIN REGULAR, HUMAN 100 UNIT/ML 3 ML VIAL SQ PRN ×3 (00:55→20:42)
[2018-08-16] MEDS: LORAZEPAM INJ 2 MG/ML VIAL IV PRN (01:47)
--- NOTE | 2018-08-16 03:43 | NUR ---
AIRCRAFT METALSMITH. AM CARE, ORAL CARE, BED BATH GIVEN, LINEN CHANGED, REMAINING SAME OXYGEN TOLERATED WE,, SAT 99%. BRAND MGR SHOWING NSR, IV RT UPPER ARM MID LINE IVF D5W IN 150MEQ SODIUM ACETATE 80 ML/H FC PATENT, URINE DRAINING. ANIRUDH SOFT WRIST RESTRAINT CHECKED AND RELEASED. NO INJURY OR REDNESS NOTED. HOB ELEVATED, NPO. TURN AND REPOSITION Q2H. AFEBRILE. WILL CONTINUE TO MONITOR VITALS.
[2018-08-16] MEDS: hydrALAZINE HCL IV 20 MG VIAL IV PRN ×3 (04:05→14:39)
[2018-08-16 05:21] LABS: CALCIUM, SERUM 8.3 mg/dL (8.5-10.1); CARBON DIOXIDE 20 mmol/L (21-32); CHLORIDE 117 mmol/L (98-107); CREATININE 2.4 mg/dL (0.6-1.3); GLUCOSE 137 mg/dL (74-106); POTASSIUM 3.6 mmol/L (3.5-5.1); SODIUM SERUM 149 mmol/L (136-145); UREA NITROGEN, BLOOD 40 mg/dL (7-18)
[2018-08-16] MEDS: Sodium Acetate 150 MEQ in IV D5W 1,000 ML IV PRN (05:26)
--- NOTE | 2018-08-16 08:14 | NUR ---
received pt from cook night, lethargic, SR, ETT, on T tube at 28% fio2, sat well, high secretion, lungs congested, some edema, NPO, f/c OK output, v/s stable, no pain, pt turned and repositioned.
[2018-08-16] MEDS: PANTOPRAZOLE 40 MG VIAL IV SCH (08:25)
[2018-08-16] MEDS: NITROGLYCERIN 30 GM TUBE TP SCH ×2 (08:25→20:41)
[2018-08-16] MEDS: hydrALAZINE HCL 50 MG TABLET NG SCH ×3 (08:58→16:16)
[2018-08-16 10:06] LABS: ABG BASE EXCESS -4.8 mmol/L; ABG OXYGEN SATURATION 95.9 % (92.0-98.5); ABG PCO2 36.4 mmHg (35.0-45.0); ABG PO2 86.5 mmHg (75.0-100.0); AaDO2 70.2 mmHg; COHb 0.2 % (0.5-1.5); MetHb 0.8 % (0.0-1.5); O2Hb 94.9 % (94.0-97.0); SITE, ABG Right Brachial; VENT MODE, BG T-PIECE 28%
[2018-08-16] MEDS ORDERED: IV 1/2NS 1000 ML 1,000 ML IV PRN (11:00)
[2018-08-16] MEDS: IV D5/0.45 NACL 1,000 ML IV PRN (11:03)
--- NOTE | 2018-08-16 16:10 | NUR ---
pt is resting in the bed, v/s stable, no pain, pt cleaned, changed and repositioned q2hrs.
--- NOTE | 2018-08-16 19:29 | NUR ---
INSURANCE CLERK. INITIAL ASSESSMENT. RECEIVED THE PT REST ON THE BED, AWAKE, ALERT, LETHARGIC. ORALLY INTUBATED. VENT OFF. OXYGEN COOL AEROSOL CONNECTED TO ETT. SAT 98%. METAL MINER BLASTING SHOWING NSR. IV LT UPPER ARM MID LINE. IVF D51/2NS 75ML/H, OGT INTACT. PT IS NPO. FC PATENT. URINE DRAINING. HOB ELEVATED, TURN AND REPOSITION Q2H.
[2018-08-16] MEDS: CEFEPIME 1 GM in IV NS 0.9% 50 ML IV SCH (23:28)
[2018-08-16] MEDS: VANCOMYCIN 500 MG in IV D5W 100 ML IV SCH (23:54)
[2018-08-17] VITALS (44 sets, daily range): BP systolic 105–165; BP diastolic 45–86
[2018-08-17] MEDS: LORAZEPAM INJ 2 MG/ML VIAL IV PRN (00:49)
[2018-08-17] MEDS: INSULIN REGULAR, HUMAN 100 UNIT/ML 3 ML VIAL SQ PRN ×3 (00:50→17:26)
[2018-08-17] MEDS: BLOOD SUGAR DIAGNOSTIC 1 EACH STRIP IN SCH ×6 (01:02→21:01)
[2018-08-17] MEDS: IV D5/0.45 NACL 1,000 ML IV PRN (01:02)
--- NOTE | 2018-08-17 03:36 | NUR ---
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 LINEN CHANGED, REMAINING SAME OXYGEN TOLERATED WELL, HOB ELEVATED. IV LT UPPER ARM MID LINE. IVF D51/2NS 75ML/H. ANIRUDH SOFT WRIST RESTRAINT CHECKED AND RELEASED, NO INJURY OR REDNESS NOTED. FC PATENT, URINE DRAINING, HOB ELEVATED, TURN AND REPOSITION Q2H. WILL CONTINUE TO MONITOR VITALS.
[2018-08-17 04:59] LABS: CARBON DIOXIDE 23 mmol/L (21-32); CHLORIDE 116 mmol/L (98-107); CREATININE 2.2 mg/dL (0.6-1.3); GLUCOSE 141 mg/dL (74-106); POTASSIUM 3.5 mmol/L (3.5-5.1); SODIUM SERUM 148 mmol/L (136-145); UREA NITROGEN, BLOOD 33 mg/dL (7-18)
--- NOTE | 2018-08-17 07:56 | NUR ---
INITIAL STRING STUDIES DIRECTOR NOTE RCVD PT RESTING IN BED, NO SIGNS OF DISTRESS OBSERVED, PT OPENS EYES TO NAME, ABLE TO FOLLOW SIMPLE COMMANDS, BILATERAL WRIST RESTRAINTS IN PLACE. CIRCULATION CHECKS DONE. SR ON MONITOR, ON T-PIECE WITH COOL AEROSOL 28% TOLERATING WELL. OG-TUBE PLACEMENT VERIFIED BY AUSCULTATION/ASPIRATION OF GASTRIC CONTENTS. KRAMER TO GRAVITY DRAINING CLOUDY, YELLOW URINE. VIN MIDLINE C/D/I/PATENT. NO S/O INFILTRATION/PHLEBITIS OBSERVED IVF INFUSING ORDERED. PT REMAINS NPO AT THIS TIME. WILL CONTINUE TO MONITOR PT FOR SAFETY AND COMFORT. BED IN LOW AND LOCKED POSITION. CALL LIGHT WITHIN REACH. HEAD OF BED ELEVATED.
[2018-08-17 07:57] LABS: BASOPHILS % (AUTO) 0.5 % (0.0-2.0); EOSINOPHILS % (AUTO) 1.7 % (0.0-6.0); HEMATOCRIT 28 % (33-45); HEMOGLOBIN 9.3 g/dL (11.5-14.8); LYMPHOCYTES # (AUTO) 1.1 /CMM (0.8-4.8); LYMPHOCYTES % (AUTO) 17.2 % (20.0-44.0); MEAN CORPUSCULAR HGB CONC 33 g/dl (31.0-36.0); MEAN CORPUSCULAR VOLUME 92 fL (82-100); MONOCYTES % (AUTO) 15.6 % (2.0-12.0); NEUTROPHILS # (AUTO) 4.1 /CMM (1.8-8.9); PLATELET COUNT (AUTO) 144 /CMM (150-450); RED BLOOD CELL COUNT(AUTO) 3.05 MIL/uL (4.0-5.2); WHITE BLOOD COUNT (AUTO) 6.4 K/uL (4.3-11.0)
[2018-08-17] MEDS: NITROGLYCERIN 30 GM TUBE TP SCH ×2 (08:21→21:04)
[2018-08-17] MEDS: hydrALAZINE HCL 50 MG TABLET NG SCH ×3 (08:21→17:14)
[2018-08-17] MEDS: PANTOPRAZOLE 40 MG VIAL IV SCH (08:21)
--- NOTE | 2018-08-17 08:56 | NUR ---
ORE ROASTER NOTE IVF DISCONTINUED AND WEEKLY CLONIDINE PATCH REMOVED PER ORDER.
[2018-08-17] MEDS: PANTOPRAZOLE 40 MG/PACK PACK NG SCH (09:00)
[2018-08-17] MEDS ORDERED: POTASSIUM CHLORIDE 20 MEQ POWDER PACKET NG SCH (09:00)
[2018-08-17] MEDS: FUROSEMIDE 40 MG/4 ML VIAL IV SCH ×3 (09:08→17:14)
--- NOTE | 2018-08-17 09:08 | NUR ---
MEDICATION NOTE PROTONIX GRANULES HELD, PROTONIX IVP GIVEN THIS AM.
[2018-08-17] MEDS: NIFEdipine (10MG) 10 MG CAPSULE NG SCH ×3 (09:40→21:03)
--- NOTE | 2018-08-17 13:07 | NUR ---
MEDICATION NOTE PROCARDIA 1300 DOSE HELD. ORDER IS TO BE GIVEN EVERY 8 HRS. LAST DOSE GIVEN ~ 0930. REKHA, PHARMACIST AWARE.
--- NOTE | 2018-08-17 18:32 | NUR ---
STORE RECEIVER NOTE PT REMAINS STABLE, INTUBATED, AWAKE AND ALERT TO SELF, FOLLOWING SIMPLE COMMANDS AND SIGNALING THAT SHE WANTS WATER. SR ON MONITOR. TOLERATING O2 VIA T-PIECE. OG-TUBE PLACEMENT VERIFIED BY AUSCULTATION/ASPIRATION. OF GASTRIC CONTENTS, KRAMER TO GRAVITY DRAINING CLOUDY, PALE, YELLOW URINE. VIN MIDLINE C/D/I/PATENT. NO S/O INFILTRATION/PHLEBITIS OBSERVED UPON FLUSHING. PT'S CARE WILL BE ENDORSED TO GATE SERVICES SUPERVISOR RN FOR CONTINUITY OF CARE BED IN LOW AND LOCKED POSITION. CALL LIGHT WITHIN REACH. HEAD OF BED ELEVATED.
--- NOTE | 2018-08-17 19:20 | NUR ---
STAFF SCIENTIST. INITIAL ASSESSMENT. RECEIVED THE PT REST ON THE BED. AWAKE, ALERT, LETHARGIC, HOB ELEVATED. ORALLY INTUBATED. ETT 7,5CM,LIP 21CM,OXYGEN CONNECTED TO T PIECE 28%, SAT 98%, NO ACUTE DISTRESS NOTED, MANAGER MEDICARE SHOWING NSR. IV LT UPPER ARM MID LINE SALINE LOCK, RT IJ TRANSVENOUS LINE INTACT. , FC PATENT. URINE DRAINING. ANIRUDH SOFT WRIST RESTRAINT CHECKED AND RELEASED. NO INJURY OR REDNESS NOTED. HOB ELEVATED. PT IS NPO. OGT INTACT, ANIRUDH SOFT WRIST RESTRAINT CHECKED AND RELEASED. NO INJURY OR REDNESS NOTED. HOB ELEVATED. WILL CONTINUE TO MONITOR VITALS.
[2018-08-17 19:50] LABS: ALBUMIN 2.2 g/dL (3.4-5.0); BILIRUBIN,DIRECT 0.3 mg/dL (0.0-0.2); BILIRUBIN,TOTAL 0.6 mg/dL (0.2-1.0); TOTAL PROTEIN, SERUM 6.1 g/dL (6.4-8.2)
[2018-08-17] MEDS: CEFEPIME 1 GM in IV NS 0.9% 50 ML IV SCH (23:00)
[2018-08-18] VITALS (38 sets, daily range): BP systolic 105–152; BP diastolic 50–78
[2018-08-18] MEDS: BLOOD SUGAR DIAGNOSTIC 1 EACH STRIP IN SCH ×5 (01:00→17:15)
--- NOTE | 2018-08-18 03:37 | NUR ---
PRICER BAGGER. AM CARE, ORAL CARE, BED BATH GIVEN. LINEN CHANGED, REMAINING SAME OXYGEN TOLERATED WELL. SAT 98%, NO ACUTE DISTRESS NOTED. OFFICE ASSISTANT SHOWING NSR, IV LT UPPER ARM MIDLINE. SALINE LOCK. HOB ELEVATED. ANIRUDH SOFT WRIST RESTRAINT CHECKED AND RELEASED, NO INJURY OR REDNESS NOTED, AFEBRILE, TURN AND REPOSITION Q2H. WILL CONTINUE TO MONITOR VITALS.
[2018-08-18 04:41] LABS: BASOPHILS % (AUTO) 0.5 % (0.0-2.0); EOSINOPHILS % (AUTO) 0.9 % (0.0-6.0); HEMATOCRIT 27 % (33-45); HEMOGLOBIN 8.8 g/dL (11.5-14.8); LYMPHOCYTES # (AUTO) 1.1 /CMM (0.8-4.8); LYMPHOCYTES % (AUTO) 17.4 % (20.0-44.0); MEAN CORPUSCULAR HGB CONC 33 g/dl (31.0-36.0); MEAN CORPUSCULAR VOLUME 93 fL (82-100); MONOCYTES # (AUTO) 0.7 /CMM (0.1-1.30); MONOCYTES % (AUTO) 11.4 % (2.0-12.0); NEUTROPHILS # (AUTO) 4.6 /CMM (1.8-8.9); NEUTROPHILS % (AUTO) 69.8 % (43.0-81.0); PLATELET COUNT (AUTO) 142 /CMM (150-450); RED BLOOD CELL COUNT(AUTO) 2.88 MIL/uL (4.0-5.2); WHITE BLOOD COUNT (AUTO) 6.5 K/uL (4.3-11.0)
[2018-08-18 04:58] LABS: ALANINE AMINOTRANSFERASE 45 U/L (12-78); ALBUMIN 2.2 g/dL (3.4-5.0); ALKALINE PHOSPHATASE 163 U/L (46-116); ASPARTATE AMINOTRANSFERASE 16 U/L (15-37); BILIRUBIN,TOTAL 0.7 mg/dL (0.2-1.0); CALCIUM, SERUM 8.3 mg/dL (8.5-10.1); CARBON DIOXIDE 22 mmol/L (21-32); CHLORIDE 113 mmol/L (98-107); CREATININE 2.6 mg/dL (0.6-1.3); GLUCOSE 132 mg/dL (74-106); MAGNESIUM 1.9 mg/dL (1.8-2.4); PHOSPHORUS 2.9 mg/dL (2.5-4.9); POTASSIUM 3.9 mmol/L (3.5-5.1); SODIUM SERUM 148 mmol/L (136-145); TOTAL PROTEIN, SERUM 6.2 g/dL (6.4-8.2); UREA NITROGEN, BLOOD 31 mg/dL (7-18)
[2018-08-18] MEDS: NIFEdipine (10MG) 10 MG CAPSULE NG SCH (06:04)
--- NOTE | 2018-08-18 07:05 | NUR ---
CULL GRADER OPENING NOTES RECEIVED PT FROM NIGHTSHIFT RN IN STABLE CONDITION. PT A/O X3 AND SINHALA SPEAKING. PT INTUBATED. T-PIECE NOTED. PT TOLERATING SETTINGS WELL (FIO2 28%). OG TUBE NOTED. PLACEMENT VERIFIED VIA AUSCULTATION. RIGHT IJ CORDIS NOTED AND NO LONGER IN USE. LEFT UPPER ARM MIDLINE NOTED TO BE PATENT AND INTACT. NO REDNESS OR SIGNS OF INFILTRATION NOTED. VSS AT THIS TIME. PT CURRENTLY SR ON THE TELE MONITOR WITH A HR OF 86. KRAMER CATHETER NOTED TO BE INTACT AND DRAINING TO GRAVITY. BED IN LOW LOCKED POSITION, SIDE RAILS UP X3, CALL LIGHT WITHIN REACH. BILATERAL SOFT WRIST RESTRAINTS NOTED. GOOD CAP REFILL AND PALPABLE PERIPHERAL PULSES NOTED TO UPPER AND LOWER EXTREMITIES. WILL CONTINUE TO MONITOR
[2018-08-18] MEDS ORDERED: DC PROPOFOL WHEN EXTUBATED XX PRN (08:00)
[2018-08-18 08:27] LABS: ABG BASE EXCESS -3.3 mmol/L; ABG OXYGEN SATURATION 96.1 % (92.0-98.5); ABG PCO2 34.6 mmHg (35.0-45.0); ABG PO2 86.3 mmHg (75.0-100.0); AaDO2 72.5 mmHg; COHb 0.3 % (0.5-1.5); MetHb 0.5 % (0.0-1.5); O2Hb 95.3 % (94.0-97.0); SITE, ABG Right Radial; VENT MODE, BG ETT T-PIECE CA 28%
[2018-08-18] MEDS: PANTOPRAZOLE 40 MG/PACK PACK NG SCH (08:31)
[2018-08-18] MEDS: hydrALAZINE HCL 50 MG TABLET NG SCH ×3 (08:32→17:16)
[2018-08-18] MEDS: NITROGLYCERIN 30 GM TUBE TP SCH ×2 (08:32→22:19)
--- NOTE | 2018-08-18 10:20 | NUR ---
INTERNAL CONTROLS ANALYST NOTES: EXTUBATION PT S/P EXTUBATION. PT ON 4L VIA NC AND SATING WELL AT 95%. NO SOB OR SIGNS OF RESPIRATORY DISTRESS NOTED. BREATHING IS EVEN AND UNLABORED. RT REMINDED OF ABG 1 HR POST EXTUBATION ORDERED BY DR. COLIN. WILL CONTINUE TO MONITOR
[2018-08-18 12:09] LABS: ABG BASE EXCESS -3.5 mmol/L; ABG OXYGEN SATURATION 97.4 % (92.0-98.5); ABG PCO2 31.6 mmHg (35.0-45.0); ABG PH 7.423 (7.350-7.450); ABG PO2 109.2 mmHg (75.0-100.0); AaDO2 110.8 mmHg; COHb 0.5 % (0.5-1.5); O2Hb 95.9 % (94.0-97.0); SITE, ABG Right Radial; VENT MODE, BG 4L NC
[2018-08-18] MEDS: NIFEdipine (10MG) 10 MG CAPSULE GT SCH ×2 (12:13→22:18)
--- NOTE | 2018-08-18 14:23 | NUR ---
ACID CONCENTRATOR NOTES: FNS ORDER SPEECH THERAPIST CONTACTED POST EXTUBATION IN REGARDS TO SWALLOW EVAL . PER THERAPIST, "I WILL SEE HER TOMORROW MORNING". OJ TUBE REMAINS IN PLACE AND PATENT. NURSING SWALLOW EVAL TRIED, HOWEVER PT NOTED TO POCKET WATER AND COUGHING. PT SEEN BY WORKFORCE PLANNING ANALYST, AND RECOMMENDED GLUCERNA 1.2 DR. VASQUEZ MADE AWARE OF CHANGES. TELEPHONE ORDER GIVEN TO BEGIN TUBE FEEDINGS RECOMMENDED BY WORKFORCE PLANNING ANALYST
[2018-08-18] MEDS: GLUCERNA 1.2 1,000 ML BOTTLE NG PRN (17:16)
[2018-08-18] MEDS: INSULIN REGULAR, HUMAN 100 UNIT/ML 3 ML VIAL SQ PRN (17:34)
--- NOTE | 2018-08-18 18:46 | NUR ---
MASTER IN CHANCERY CLOSING NOTES: PT. REMAINS STABLE. VSS. PT TOLERATING FEEDINGS WELL AT 10CC/HR. NO RESIDUALS NOTED AT THIS TIME. SAFETY MEASURES IN PLACE. WILL ENDORSE TO NIGHTSHIFT RN FOR LÁZARO
--- NOTE | 2018-08-18 19:10 | NUR ---
ICU/RN RECEIVED PT WIDE AWAKE,ORIENTED TO NAME AND PLACE,RE-ORIENTED TO TIME AND SURROUNDINGS.ON 4LN/C W/ SAT. OF 92-94%.PT'S LT HAND HOLDING ONTO OROGASTRIC TUBE,EXPLAINED TO PT RE-IMPORTANCE OF ABOVE.BILATERAL SOFT WRIST RESTRAINTS ADJUSTED AND CHECKED FOR CIRCULATION.
--- NOTE | 2018-08-18 22:00 | NUR ---
ICU/RN REQUIRING FREQUENT ORAL SUCTIONING FOR MODERATE THIN-THICKPALE YELLOW SECRETIONS
[2018-08-19] VITALS (24 sets, daily range): BP systolic 96–148; BP diastolic 48–85
[2018-08-19] MEDS: INSULIN REGULAR, HUMAN 100 UNIT/ML 3 ML VIAL SQ PRN ×3 (00:21→17:55)
[2018-08-19] MEDS: BLOOD SUGAR DIAGNOSTIC 1 EACH STRIP IN SCH ×5 (00:23→23:53)
--- NOTE | 2018-08-19 03:30 | NUR ---
1CU/RN SLEPT X2HRS.ONLY. PT BUSY SCRATCHING FACE AND RT SIDE NECK.STILL W/ QUITE A MODERATE SECRETIONS WHEN SUCTIONED.ORAL CRE DONE.
--- NOTE | 2018-08-19 04:00 | NUR ---
ICU/RN TUBE FEEDING NOW AT 30ML/HR.TOLERATING TUBE FEEDING W/OUT RESIDUAL.VITAL SIGNS STABLE.MONITOR NSR W/ 1ST DEGREE AVB.
[2018-08-19 04:36] LABS: BASOPHILS % (AUTO) 0.7 % (0.0-2.0); EOSINOPHILS % (AUTO) 1.4 % (0.0-6.0); HEMATOCRIT 28 % (33-45); HEMOGLOBIN 9.3 g/dL (11.5-14.8); LYMPHOCYTES # (AUTO) 1.1 /CMM (0.8-4.8); LYMPHOCYTES % (AUTO) 19.4 % (20.0-44.0); MEAN CORPUSCULAR HGB CONC 33 g/dl (31.0-36.0); MEAN CORPUSCULAR VOLUME 92 fL (82-100); MONOCYTES # (AUTO) 0.7 /CMM (0.1-1.30); MONOCYTES % (AUTO) 12.5 % (2.0-12.0); NEUTROPHILS # (AUTO) 3.8 /CMM (1.8-8.9); PLATELET COUNT (AUTO) 158 /CMM (150-450); RED BLOOD CELL COUNT(AUTO) 3.06 MIL/uL (4.0-5.2); WHITE BLOOD COUNT (AUTO) 5.8 K/uL (4.3-11.0)
[2018-08-19 05:00] LABS: CALCIUM, SERUM 8.7 mg/dL (8.5-10.1); CARBON DIOXIDE 28 mmol/L (21-32); CHLORIDE 113 mmol/L (98-107); CREATININE 2.7 mg/dL (0.6-1.3); GLUCOSE 94 mg/dL (74-106); POTASSIUM 3.4 mmol/L (3.5-5.1); SODIUM SERUM 149 mmol/L (136-145); UREA NITROGEN, BLOOD 35 mg/dL (7-18)
[2018-08-19] MEDS: NIFEdipine (10MG) 10 MG CAPSULE GT SCH ×3 (06:46→21:49)
--- NOTE | 2018-08-19 07:03 | NUR ---
ROPE RIDER OPENING NOTES RECEIVED PT FROM NIGHTSHIFT RN IN STABLE CONDITION. PT A/O X3 AND KISWAHILI SPEAKING. PT ON 4L VIA NC AND SATING WELL. OG TUBE NOTED. PLACEMENT VERIFIED VIA AUSCULTATION. PT TOLERATING TUBE FEEDINGS AT 30CC PER HR WELL. NO RESIDUALS ASPIRATED AT THIS TIME. RIGHT IJ CORDIS NOTED TO BE C/D/I. GOOD BLOOD RETURN NOTED. LEFT UPPER ARM MIDLINE NOTED TO BE PATENT AND INTACT. NO REDNESS OR SIGNS OF INFILTRATION NOTED. VSS AT THIS TIME. PT CURRENTLY SR ON THE TELE MONITOR WITH A HR OF 90. KRAMER CATHETER NOTED TO BE INTACT AND DRAINING TO GRAVITY. BED IN LOW LOCKED POSITION, SIDE RAILS UP X3, CALL LIGHT WITHIN REACH, BED ALARM ON FOR FURTHER SAFETY. WILL CONTINUE TO MONITOR
[2018-08-19] MEDS ORDERED: POTASSIUM CHLORIDE 20 MEQ POWDER PACKET NG SCH (08:00)
[2018-08-19] MEDS: FUROSEMIDE 100 MG/10 ML VIAL IV SCH ×3 (08:21→16:00)
[2018-08-19] MEDS: NITROGLYCERIN 30 GM TUBE TP SCH ×2 (08:22→21:50)
[2018-08-19] MEDS: PANTOPRAZOLE 40 MG/PACK PACK NG SCH (08:24)
[2018-08-19] MEDS: METOLAZONE 2.5 MG TABLET PO SCH (10:11)
[2018-08-19] MEDS: hydrALAZINE HCL 50 MG TABLET NG SCH ×3 (10:12→17:29)
[2018-08-19] MEDS: GLUCERNA 1.2 1,000 ML BOTTLE NG PRN (17:55)
--- NOTE | 2018-08-19 18:30 | NUR ---
MANUFACTURING AUTOMATION ENGINEERSCALES INSPECTOR NOTES PT TRANSFERRED TO [facility] VIA ACLS PROTOCOL IN STABLE CONDITION AND WILL ALL MEDS/BELONGINGS
--- NOTE | 2018-08-19 18:35 | NUR ---
[facility] PRODUCTION TEAM MEMBER NOTES RECEIVED PT FROM ICU TO ROOM 112-2.ALERT/ORIENTED X2,FAROESE SPEAKING PT.ON NC 4L O2 CONTINUOUSLY.ON TELE HR IS SR.NO SOB AND ACUTE DISTRESS NOTED.MIDLINE IS ON LEFT UA AND RIGHT IJ LINE IS PRESENT,DRESSING IS INTACT.MEREDITH GASTRIC TUBE PRESENT,MINIMAL RESIDUAL NOTED WITH FEEDING.FC IS IN PLACE.VITAL SIGNS CHECKED AND RECORDED.SAFETY IS MAINTAINED AT ALL TIMES.BED IS IN LOW POSITION AND LOCKED.CALL LIGHT IS WITHIN REACH.WILL CONTINUE TO MONITOR THE PT CLOSELY.
--- NOTE | 2018-08-19 18:55 | NUR ---
[facility] RN CLOSING NOTES PT IS LYING ON BED.ALERT/ORIENTED X2,ESTONIAN SPEAKING PT.ON NC 4L O2 CONTINUOUSLY.ON TELE HR IS SR.NO SOB AND ACUTE DISTRESS NOTED.MIDLINE IS ON LEFT UA AND RIGHT IJ LINE IS PRESENT,DRESSING IS INTACT.MEREDITH GASTRIC TUBE PRESENT,MINIMAL RESIDUAL NOTED WITH FEEDING.FC IS IN PLACE.ENDORSED TO HOUSEHOLD MANAGER RN FOR LÁZARO
[2018-08-20] VITALS: BP 137/64
[2018-08-20] MEDS: INSULIN REGULAR, HUMAN 100 UNIT/ML 3 ML VIAL SQ PRN ×4 (00:20→18:07)
[2018-08-20 04:00] VITALS: BP 140/69
[2018-08-20] MEDS: BLOOD SUGAR DIAGNOSTIC 1 EACH STRIP IN SCH ×3 (05:34→18:08)
[2018-08-20] MEDS: NIFEdipine (10MG) 10 MG CAPSULE GT SCH ×3 (05:34→20:49)
--- NOTE | 2018-08-20 07:00 | NUR ---
RN OPENING PT IS LYING ON BED.ALERT/ORIENTED X2,AUSTRIAN SPEAKING PT.ON NC 4L O2 CONTINUOUSLY.ON TELE HR IS SR.NO SOB AND ACUTE DISTRESS NOTED.MIDLINE IS ON LEFT UA AND RIGHT IJ LINE IS PRESENT,DRESSING IS INTACT.MEREDITH GASTRIC TUBE PRESENT,MINIMAL RESIDUAL NOTED WITH FEEDING.FC IS IN PLACE. RECEIVED REPORT FROM PAPER PRODUCTS SUPERVISOR RN.
[2018-08-20 07:13] LABS: BASOPHILS # (AUTO) 0.1 /CMM (0.0-0.2); EOSINOPHILS % (AUTO) 2.4 % (0.0-6.0); HEMATOCRIT 28 % (33-45); HEMOGLOBIN 9.5 g/dL (11.5-14.8); LYMPHOCYTES % (AUTO) 20.1 % (20.0-44.0); MEAN CORPUSCULAR HGB CONC 34 g/dl (31.0-36.0); MEAN CORPUSCULAR VOLUME 91 fL (82-100); MONOCYTES # (AUTO) 0.4 /CMM (0.1-1.30); MONOCYTES % (AUTO) 8.9 % (2.0-12.0); NEUTROPHILS # (AUTO) 3.4 /CMM (1.8-8.9); NEUTROPHILS % (AUTO) 67.6 % (43.0-81.0); PLATELET COUNT (AUTO) 171 /CMM (150-450)
[2018-08-20 07:46] LABS: CALCIUM, SERUM 8.8 mg/dL (8.5-10.1); CARBON DIOXIDE 30 mmol/L (21-32); CHLORIDE 108 mmol/L (98-107); GLUCOSE 211 mg/dL (74-106); POTASSIUM 3.8 mmol/L (3.5-5.1); SODIUM SERUM 147 mmol/L (136-145); UREA NITROGEN, BLOOD 41 mg/dL (7-18)
[2018-08-20 08:00] VITALS: BP 120/57
[2018-08-20] MEDS: PANTOPRAZOLE 40 MG/PACK PACK NG SCH (09:04)
[2018-08-20] MEDS: METOLAZONE 2.5 MG TABLET PO SCH (09:04)
[2018-08-20] MEDS: hydrALAZINE HCL 50 MG TABLET NG SCH ×3 (09:04→17:05)
[2018-08-20] MEDS: NITROGLYCERIN 30 GM TUBE TP SCH ×2 (09:05→20:51)
[2018-08-20 12:00] VITALS: BP 132/70
[2018-08-20 16:00] VITALS: BP 129/58
--- NOTE | 2018-08-20 19:19 | NUR ---
RN CLOSING NOTES PT IS LYING ON BED.ALERT/ORIENTED X2,DOMINICAN SPEAKING PT.ON NC 4L O2 CONTINUOUSLY.ON TELE HR IS SR.NO SOB AND ACUTE DISTRESS NOTED.MIDLINE IS ON LEFT UA AND RIGHT IJ LINE IS PRESENT,DRESSING IS INTACT.MEREDITH GASTRIC TUBE PRESENT,MINIMAL RESIDUAL NOTED WITH FEEDING.FC IS IN PLACE.REPORT GIVEN TO MANUFACTURING HELPER RN.
[2018-08-20 20:00] VITALS: BP 178/69
[2018-08-21] MEDS: INSULIN REGULAR, HUMAN 100 UNIT/ML 3 ML VIAL SQ PRN ×4 (00:12→17:31)
[2018-08-21] MEDS: BLOOD SUGAR DIAGNOSTIC 1 EACH STRIP IN SCH ×4 (00:17→17:29)
[2018-08-21 04:00] VITALS: BP 150/70
[2018-08-21] MEDS: NIFEdipine (10MG) 10 MG CAPSULE GT SCH ×3 (05:22→21:47)
--- NOTE | 2018-08-21 07:20 | NUR ---
MS RN OPENING NOTE RECEIVED REPORT FROM PM NURSE.PT IS ON BED.WITH HOB ELEVATED.ALERT/ORIENTED X2,CAMBODIAN SPEAKING .ON NC 4L O2 CONTINUOUSLY.NO SOB AND ACUTE DISTRESS NOTED.MIDLINE IS ON LEFT UA AND RIGHT IJ LINE IS PRESENT,DRESSING IS INTACT.MEREDITH GASTRIC TUBE PRESENT,MINIMAL RESIDUAL NOTED WITH FEEDING.FC IS DRAINING CLEAR YELLOW URINE.BED IS LOCKED AND IN LOW POSITION.CALL LIGHT IN REACH.SRX3.WILL CONTINUE TO MONITOR.
[2018-08-21 07:51] LABS: BASOPHILS % (AUTO) 0.6 % (0.0-2.0); EOSINOPHILS % (AUTO) 1.7 % (0.0-6.0); HEMATOCRIT 31 % (33-45); HEMOGLOBIN 10.2 g/dL (11.5-14.8); LYMPHOCYTES # (AUTO) 1.1 /CMM (0.8-4.8); LYMPHOCYTES % (AUTO) 18.4 % (20.0-44.0); MEAN CORPUSCULAR HGB CONC 33 g/dl (31.0-36.0); MEAN CORPUSCULAR VOLUME 92 fL (82-100); MONOCYTES # (AUTO) 0.6 /CMM (0.1-1.30); MONOCYTES % (AUTO) 9.4 % (2.0-12.0); NEUTROPHILS # (AUTO) 4.2 /CMM (1.8-8.9); NEUTROPHILS % (AUTO) 69.9 % (43.0-81.0); PLATELET COUNT (AUTO) 168 /CMM (150-450); RED BLOOD CELL COUNT(AUTO) 3.36 MIL/uL (4.0-5.2); WHITE BLOOD COUNT (AUTO) 6.1 K/uL (4.3-11.0)
[2018-08-21 07:55] LABS: CALCIUM, SERUM 8.4 mg/dL (8.5-10.1); CARBON DIOXIDE 32 mmol/L (21-32); CHLORIDE 103 mmol/L (98-107); CREATININE 3.1 mg/dL (0.6-1.3); GLUCOSE 250 mg/dL (74-106); MAGNESIUM 1.9 mg/dL (1.8-2.4); SODIUM SERUM 143 mmol/L (136-145); UREA NITROGEN, BLOOD 44 mg/dL (7-18)
[2018-08-21 08:00] VITALS: BP 126/60
[2018-08-21] MEDS: PANTOPRAZOLE 40 MG/PACK PACK NG SCH (08:52)
[2018-08-21] MEDS: hydrALAZINE HCL 50 MG TABLET NG SCH ×3 (08:52→17:30)
[2018-08-21] MEDS: NITROGLYCERIN 30 GM TUBE TP SCH ×2 (08:53→21:46)
--- NOTE | 2018-08-21 12:30 | NUR ---
RN NOTE SEEN BY AND SPEECH THERAPIST.OK TO REMOVE OG TUBE FROM AND .STARTED ON PO INTAKE WITH PUREE DIET.UPDATED PATIENT CONDITION WITH AND .WILL CONTINUE TO MONITOR.
--- NOTE | 2018-08-21 15:00 | NUR ---
RN NOTE PATIENT REFUSED PT.
[2018-08-21 16:00] VITALS: BP 130/59
[2018-08-21 16:25] VITALS: BP 130/59
--- NOTE | 2018-08-21 19:03 | NUR ---
RN CLOSING NOTE PATIENT TOLERATING PO INTAKE.PATIENT IN STABLE CONDITION.WILL ENDORSE TO PM NURSE FOR LÁZARO.
[2018-08-21 20:00] VITALS: BP 137/57
[2018-08-22] MEDS: INSULIN REGULAR, HUMAN 100 UNIT/ML 3 ML VIAL SQ PRN ×3 (01:27→12:01)
[2018-08-22 04:00] VITALS: BP 137/57
[2018-08-22] MEDS: NIFEdipine (10MG) 10 MG CAPSULE GT SCH ×2 (05:38→13:14)
[2018-08-22] MEDS: BLOOD SUGAR DIAGNOSTIC 1 EACH STRIP IN SCH ×3 (05:47→11:58)
[2018-08-22 07:23] LABS: BASOPHILS % (AUTO) 0.9 % (0.0-2.0); EOSINOPHILS % (AUTO) 3.4 % (0.0-6.0); HEMATOCRIT 30 % (33-45); HEMOGLOBIN 9.9 g/dL (11.5-14.8); LYMPHOCYTES # (AUTO) 1.4 /CMM (0.8-4.8); LYMPHOCYTES % (AUTO) 30.4 % (20.0-44.0); MEAN CORPUSCULAR HGB CONC 33 g/dl (31.0-36.0); MEAN CORPUSCULAR VOLUME 92 fL (82-100); MONOCYTES # (AUTO) 0.5 /CMM (0.1-1.30); NEUTROPHILS # (AUTO) 2.5 /CMM (1.8-8.9); NEUTROPHILS % (AUTO) 54.3 % (43.0-81.0); PLATELET COUNT (AUTO) 161 /CMM (150-450); RED BLOOD CELL COUNT(AUTO) 3.28 MIL/uL (4.0-5.2); WHITE BLOOD COUNT (AUTO) 4.6 K/uL (4.3-11.0)
[2018-08-22 07:28] LABS: CALCIUM, SERUM 8.3 mg/dL (8.5-10.1); CARBON DIOXIDE 32 mmol/L (21-32); CHLORIDE 101 mmol/L (98-107); CREATININE 2.8 mg/dL (0.6-1.3); GLUCOSE 201 mg/dL (74-106); POTASSIUM 3.9 mmol/L (3.5-5.1); SODIUM SERUM 141 mmol/L (136-145); UREA NITROGEN, BLOOD 46 mg/dL (7-18)
--- NOTE | 2018-08-22 07:30 | NUR ---
EZRA RECEIVED REPORT FROM PM NURSE.PT IS ON BED.WITH HOB ELEVATED.ALERT/ORIENTED X2,KISWAHILI SPEAKING .ON NC 4L O2 CONTINUOUSLY.NO SOB AND ACUTE DISTRESS NOTED.MIDLINE IS ON LEFT UA AND RIGHT IJ LINE IS PRESENT,DRESSING IS INTACT.MEREDITH GASTRIC TUBE PRESENT,MINIMAL RESIDUAL NOTED WITH FEEDING.FC IS DRAINING CLEAR YELLOW URINE.BED IS LOCKED AND IN LOW POSITION.CALL LIGHT IN REACH.SRX3.WILL CONTINUE TO MONITOR.
[2018-08-22 08:00] VITALS: BP 124/59
[2018-08-22] MEDS: PANTOPRAZOLE 40 MG/PACK PACK NG SCH (09:24)
[2018-08-22] MEDS: hydrALAZINE HCL 50 MG TABLET NG SCH ×2 (09:25→13:15)
[2018-08-22] MEDS: NITROGLYCERIN 30 GM TUBE TP SCH (09:26)
[2018-08-22 12:00] VITALS: BP 127/57
--- NOTE | 2018-08-22 14:54 | NUR ---
CORDIS ON IJ D/C BY ICU NURSE,NO BLEEDING NOTED,TIP INTACT.
--- NOTE | 2018-08-22 14:58 | NUR ---
TRANSFER CALLED RN REPORT SPOKE WITH TEX BOND FORGEMAN HELPER PT GOING TO [facility] ETA [id number]
--- NOTE | 2018-08-22 15:01 | NUR ---
CORDIS AND KRAMER DISCONTINUED
[2018-08-22 16:00] VITALS: BP 111/52
--- NOTE | 2018-08-22 18:16 | NUR ---
PT LEAVING TO [facility] VIA [facility][id number] PT GIVEN LAST MEAL EATING 50%
== END 2018-08-22 18:25 | DRG 871 ==
LOC: ER 21:38 → ICU 23:36 → TELE-TD 08-19 18:02 → TELE1 08-20 11:46 → MEDSG1 08-20 17:59
PROVIDERS: ADMIT Legal Medicine; ATTEND Legal Medicine
PROC: 5A1945Z Respiratory Ventilation, 24-96 Consecutive Hours (ICD-10-PCS; principal; 2018-08-10)
PROC: 0BH18EZ Insertion of Endotracheal Airway into Trachea, Via Natural or Artificial Opening Endoscopic (ICD-10-PCS; 2018-08-10)
PROC: 30233N1 Transfusion of Nonautologous Red Blood Cells into Peripheral Vein, Percutaneous Approach (ICD-10-PCS; 2018-08-14)
PROC: 05H633Z Insertion of Infusion Device into Left Subclavian Vein, Percutaneous Approach (ICD-10-PCS; 2018-08-15)
PROC: B547ZZA Ultrasonography of Left Subclavian Vein, Guidance (ICD-10-PCS; 2018-08-15)
DX: A41.9 Sepsis, unspecified organism (principal); J96.01 Acute respiratory failure with hypoxia; J18.9 Pneumonia, unspecified organism; N17.0 Acute kidney failure with tubular necrosis; E03.5 Myxedema coma; E43 Unspecified severe protein-calorie malnutrition; G93.41 Metabolic encephalopathy; K72.00 Acute and subacute hepatic failure without coma; R65.21 Severe sepsis with septic shock; J90 Pleural effusion, not elsewhere classified; N39.0 Urinary tract infection, site not specified; E87.2 Acidosis; I13.0 Hypertensive heart and chronic kidney disease with heart failure and stage 1 through stage 4 chronic kidney disease, or unspecified chronic kidney disease; N18.4 Chronic kidney disease, stage 4 (severe); E11.22 Type 2 diabetes mellitus with diabetic chronic kidney disease; E11.65 Type 2 diabetes mellitus with hyperglycemia; E78.5 Hyperlipidemia, unspecified; E03.9 Hypothyroidism, unspecified; F03.90 Unspecified dementia, unspecified severity, without behavioral disturbance, psychotic disturbance, mood disturbance, and anxiety; I50.9 Heart failure, unspecified; R13.10 Dysphagia, unspecified; Z86.73 Personal history of transient ischemic attack (TIA), and cerebral infarction without residual deficits; Z79.82 Long term (current) use of aspirin; Z79.4 Long term (current) use of insulin; Z79.899 Other long term (current) drug therapy; D63.8 Anemia in other chronic diseases classified elsewhere; E86.1 Hypovolemia; I27.20 Pulmonary hypertension, unspecified; G93.89 Other specified disorders of brain
CPT/HCPCS: 31720; 36415; 36569; 36600; 70450-TC; 71045-TC; 76700-TC; 76770-TC; 80048-TC; 80053-TC; 80061-TC; 80076-TC; 80202-TC; 81000-TC; 82140-TC; 82533; 82803-TC; 82962-TC; 83605-TC; 83735-TC; 83880; 84100-TC; 84439-TC; 84443-TC; 84484-TC; 85025-TC; 85027-TC; 85385-TC; 85610-TC; 85730-TC; 86850-TC; 86921-TC; 87040-TC; 87081-TC; 87086-TC; 92526; 92611-TC; 93307-TC; 94002-TC; 94003-TC; 94640-TC; 94760-TC; 94799-TC; 97110-TC; 97116-TC; 97530-TC; 99082-TC; A4216; A4624; A6402; C1751; C9113; G0378; J0360; J0461; J0692; J1200; J1720; J1815; J1940; J2060; J2250; J3010; J3370; J3475; J3490; J7030; J7042; J7050; J7060; J7070; P9016-BL

== ENCOUNTER 2019-03-15 11:14 | Inpatient (IN) | payer MEDICARE, MEDICAID ==
[~2019-03-15] VITALS: Ht 157.5 cm; Wt 50.3 kg
--- NOTE | 2019-03-15 12:00 | NUR ---
PATIENT CAME IN TO THE ER C/O DIZZINESS, UNSTEADY W/ WALKER SINCE YESTERDAY, ALSO C/O LLE PAIN. ON ROOM AIR, BREATHING EVENLY AND UNLABORED. CONNECTED TO THE MONITOR AND PULSE OX. KEPT COMFORTABLE, WILL CONTINUE TO MONITOR ACCORDINGLY.
[2019-03-15 12:17] LABS: BASOPHILS % (AUTO) 0.8 % (0.0-2.0); EOSINOPHILS % (AUTO) 0.9 % (0.0-6.0); HEMATOCRIT 35 % (33-45); HEMOGLOBIN 11.4 g/dL (11.5-14.8); LYMPHOCYTES # (AUTO) 1.6 /CMM (0.8-4.8); LYMPHOCYTES % (AUTO) 26.9 % (20.0-44.0); MEAN CORPUSCULAR HGB CONC 33 g/dl (31.0-36.0); MEAN CORPUSCULAR VOLUME 94 fL (82-100); MONOCYTES # (AUTO) 0.5 /CMM (0.1-1.30); MONOCYTES % (AUTO) 8.8 % (2.0-12.0); NEUTROPHILS # (AUTO) 3.8 /CMM (1.8-8.9); NEUTROPHILS % (AUTO) 62.6 % (43.0-81.0); PLATELET COUNT (AUTO) 210 /CMM (150-450); RED BLOOD CELL COUNT(AUTO) 3.73 MIL/uL (4.0-5.2); WHITE BLOOD COUNT (AUTO) 6.1 K/uL (4.3-11.0)
[2019-03-15 12:26] LABS: CALCIUM, SERUM 9.7 mg/dL (8.5-10.1); CARBON DIOXIDE 27 mmol/L (21-32); CHLORIDE 104 mmol/L (98-107); CREATININE 2.6 mg/dL (0.6-1.3); GLUCOSE 168 mg/dL (74-106); POTASSIUM 4.4 mmol/L (3.5-5.1); SODIUM SERUM 140 mmol/L (136-145); UREA NITROGEN, BLOOD 42 mg/dL (7-18)
[2019-03-15] MEDS ORDERED: IV NS 0.9% 500 ML BAG IV ONE (12:30)
[2019-03-15 12:33] LABS: ALANINE AMINOTRANSFERASE 11 U/L (12-78); ALBUMIN 3.4 g/dL (3.4-5.0); ALKALINE PHOSPHATASE 132 U/L (46-116); ASPARTATE AMINOTRANSFERASE 16 U/L (15-37); BILIRUBIN,DIRECT 0.1 mg/dL (0.0-0.2); BILIRUBIN,TOTAL 0.3 mg/dL (0.2-1.0); TOTAL PROTEIN, SERUM 8.3 g/dL (6.4-8.2)
--- NOTE | 2019-03-15 12:55 | NUR ---
PAGED DR ROLAND FOR ADMISSION
[2019-03-15] MEDS ORDERED: ATOR10TA PO (13:07)
[2019-03-15] MEDS ORDERED: CALC500T51 PO (13:07)
[2019-03-15] MEDS ORDERED: PANT40TA2 PO (13:07)
[2019-03-15] MEDS ORDERED: INSU100I26 SQ (13:07)
[2019-03-15] MEDS ORDERED: DOCU-141 PO (13:07)
[2019-03-15] MEDS ORDERED: LEVO150T8 PO (13:07)
[2019-03-15] MEDS ORDERED: NATE60TA4 PO (13:07)
[2019-03-15] MEDS ORDERED: HYDR100T27 PO (13:07)
[2019-03-15] MEDS ORDERED: ASPI-1152 PO (13:07)
--- NOTE | 2019-03-15 13:16 | NUR ---
CALLED [facility]. CAKE FROSTER WAS PAGED
--- NOTE | 2019-03-15 13:23 | NUR ---
CALLED DR VASQUEZ FOR A DR TO AWAITING HIS CALL BACK
--- NOTE | 2019-03-15 14:58 | NUR ---
RECEIVED PT FROM ER VIA [facility]. INTRODUCED SELF TO PT. PT SPEAKS PERSIAN ONLY. PT ALERT AND ORIENTED X 3, DOES NOT KNOW WHAT MONTH IT IS. PT ON ROOM AIR, SATURATING WELL, RESPIRATIONS EASY AND UNLABORED, NO SIGNS OF RESPIRATORY DISTRESS NOTED. SINUS RHYTHM ON CRYPTOZOOLOGIST. REPORTS PAIN ON LEFT HIP RADIATING DOWN. PAIN RATED A 10/10, BEGAN YESTERDAY WITHOUT KNOWN CAUSE. SKIN ASSESSMENT PERFORMED- BRUISE NOTED ON RIGHT POSTERIOR THIGH- PHOTO TAKEN AND PLACED INTO CHART, NO OTHER SKIN ABNORMALITIES FOUND. IV SITE ON LEFT ACF G18 PATENT WITH SALINE LOCK. BED IN LOW POSITION, LOCKED, CALL LIGHT WITHIN REACH.
--- NOTE | 2019-03-15 14:58 | NUR ---
RECEIVED PT FROM ER VIA [facility]. INTRODUCED SELF TO PT. PT IS CITIZEN OF [place] AND [place] SPEAKING ONLY. PT ALERT AND ORIENTED X 3, DOES NOT KNOW WHAT MONTH IT IS. PT ON ROOM AIR, SATURATING WELL, RESPIRATIONS EASY AND UNLABORED, NO SIGNS OF RESPIRATORY DISTRESS NOTED. REPORTS PAIN ON LEFT LEG RATED A 10/10 WHICH BEGAN YESTERDAY WITHOUT KNOWN CAUSE. SKIN ASSESSMENT PERFORMED- BRUISE NOTED ON RIGHT OUTER THIGH - NO OTHER ABNORMALITIES FOUND. PHOTO TAKEN AND PLACED INTO CHART. IV SITE ON LEFT ACF G18 PATENT WITH SALINE LOCK.
--- NOTE | 2019-03-15 15:03 | NUR ---
wheeled patient via gurney accompanied by RN and emt in no apparent distress noted. Pauly RN at bedside to assume care.
[2019-03-15] MEDS ORDERED: DEXTROSE 50%-WATER 50 ML DISP.SYRIN IV PRN (15:30)
[2019-03-15] MEDS ORDERED: ONDANSETRON HCL/PF 4 MG/2 ML VIAL IVP PRN (15:30)
[2019-03-15] MEDS: BLOOD SUGAR DIAGNOSTIC 1 EACH STRIP IN SCH (17:50)
--- NOTE | 2019-03-15 18:44 | NUR ---
COOK ICE CREAM CLOSING NOTE PT AWAKE IN BED, ALERT AND ORIENTED X 3, ON ROOM AIR, SATURATING WELL, RESPIRATIONS EASY AND UNLABORED, NO SIGNS OF RESPIRATORY DISTRESS NOTED. SINUS RHYTHM ON MAC DEVELOPER. IV SITE ON LEFT ACF G18 PATENT WITH SALINE LOCK. BED IN LOW POSITION, LOCKED, CALL LIGHT WITHIN REACH. PROVIDED SAFETY AND COMFORT TO PT THROUGHOUT SHIFT. WILL ENDORSE TO NOC SHIFT NURSE FOR LÁZARO.
[2019-03-15] MEDS: IV NS 0.9% 1,000 ML IV PRN (19:23)
[2019-03-15 20:00] VITALS: BP 146/85
--- NOTE | 2019-03-15 20:00 | NUR ---
MANAGER MATERIALS MANAGEMENT NOTE PT IN BED ASLEEP, AROUSABLE. NO DISTRESS OR DISCOMFORT NOTED. DENIES PAIN. A/O X 3 NEW ZEALANDER SPEAKING. RADHA DONATO TRANSLATED TO THE PT. NO S/S OF HYPO OR HYPERGLYCEMIA NOTED. IVF NS @ 75 ML/HR INFUSING WELL, 0 ML RESIDUAL NOTED. KEPT HER DRY AND CLEAN. ON TELE SR WITH BBB, PVC AND 1ST DEGREE AV BLOCK HR 69. SIDE RAILS UP X 3 AND CALL LIGHT WITHIN REACH. VSS. CONTINUE TO MONITOR HER. Addendum: 03/16/19 at 0123 by TONNY JUAREZ RN 0 ML RESIDUAL NOTED WROTE IN ERROR, IT WAS NO S/S OF INFILTRATION NOTED.
[2019-03-16] VITALS (8 sets, daily range): BP systolic 122–170; BP diastolic 55–85
--- NOTE | 2019-03-16 00:30 | NUR ---
DIRECTOR COMPLIANCE OPENING NOTES RECEIVED PATIENT IN BED, AWAKE, A/OX3. DENIES ANY PAIN AT THE MOMENT. ON ROOM AIR, RESPIRATIONS EVEN AND UNLABORED, NO SIGNS OF RESPIRATORY/CARDIAC DISTRESS NOTED. ON TELE MONITOR SINUS BISI-SINUS RHYTHM WITH HR 57-60 WITH BBB NOTED. IV SITE ON LEFT AC 18G, INFILTRATED, WILL REMOVE IV AND INSERT NEW ONE. SAFETY MEASURES IN PLACE; BED IN LOW POSITION, LOCKED, CALL LIGHT WITHIN REACH, SIDE RAILS UP X2, BED ALARM ON. PATIENT MOST RECENT TEMP 99. COOLING MEASURES IN PLACE. WILL CONT TO MONITOR PT CLOSELY.
--- NOTE | 2019-03-16 00:32 | NUR ---
DOG OR HORSE RACING OFFICIAL NOTE REPORT GIVEN TO NURSE MARTÍNEZ FOR CONTINUE TO CARE.
[2019-03-16] MEDS: BLOOD SUGAR DIAGNOSTIC 1 EACH STRIP IN SCH ×5 (00:48→18:01)
[2019-03-16] MEDS: INSULIN REGULAR, HUMAN 100 UNIT/ML 3 ML VIAL SQ PRN ×2 (01:00→22:48)
--- NOTE | 2019-03-16 06:49 | NUR ---
STRAND AND BINDER CONTROLLER CLOSING NOTES PATIENT SLEEPING IN BED, BUT EASY TO AROUSE, A/OX3. NO ACUTE CHANGES THROUGHOUT SHIFT. ALL MD ORDERS ATTENDED, ALL NEEDS ANTICIPATED AND MET. DENIES ANY PAIN. ON ROOM AIR, RESPIRATIONS EVEN AND UNLABORED, NO SIGNS OF RESPIRATORY/CARDIAC DISTRESS NOTED. ON TELE MONITOR SINUS SINUS RHYTHM WITH HR 80'S WITH BBB NOTED. IV SITE LEFT FA 22G, FLUSHING AND PATENT, SITE C/D/I. IV FLUIDS RUNNING ORDERED, NO INFILTRATION NOTED. SAFETY MEASURES IN MAINTAINED; BED IN LOW AND LOCKED POSITION, CALL LIGHT WITHIN REACH, SIDE RAILS UP X2, BED ALARM ON. WILL CONT TO MONITOR PT. WILL ENDORSE TO AM RN FOR LÁZARO.
--- NOTE | 2019-03-16 07:00 | NUR ---
BUTTERMAKER CONTINUOUS CHURN OPENING RECEIVED PATIENT ASLEEP. ABLE TO AROUSE TO NAME. PATIENT A/OX3, SCOTTISH SPEAKING ONLY. ON ROOM AIR, NO RESPIRATORY DISTRESS NOTED. TELE MONITOR ATTACHED, SINUS RHYTHM HR 75 + 2ND DEGREE BBB. PATIENT DENIES DIZZINESS AT THIS TIME. REPORTS PAIN 10/10 PAIN IN LEFT LEG. L FA 22G INFUSING NS @75mL/HR. BED ALARM ON, CALL LIGHT WITHIN REACH, PATIENT ABLE TO MAKE NEEDS KNOWN. WILL CONT TO MONITOR
[2019-03-16 07:03] LABS: BASOPHILS % (AUTO) 0.8 % (0.0-2.0); EOSINOPHILS % (AUTO) 1.5 % (0.0-6.0); HEMATOCRIT 30 % (33-45); HEMOGLOBIN 9.9 g/dL (11.5-14.8); LYMPHOCYTES # (AUTO) 1.5 /CMM (0.8-4.8); LYMPHOCYTES % (AUTO) 28.2 % (20.0-44.0); MEAN CORPUSCULAR HGB CONC 33 g/dl (31.0-36.0); MEAN CORPUSCULAR VOLUME 93 fL (82-100); MONOCYTES # (AUTO) 0.6 /CMM (0.1-1.30); MONOCYTES % (AUTO) 11.2 % (2.0-12.0); NEUTROPHILS % (AUTO) 58.3 % (43.0-81.0); PLATELET COUNT (AUTO) 159 /CMM (150-450); RED BLOOD CELL COUNT(AUTO) 3.21 MIL/uL (4.0-5.2); WHITE BLOOD COUNT (AUTO) 5.2 K/uL (4.3-11.0)
[2019-03-16 07:06] LABS: CALCIUM, SERUM 8.7 mg/dL (8.5-10.1); CARBON DIOXIDE 26 mmol/L (21-32); CHLORIDE 104 mmol/L (98-107); CREATININE 2.2 mg/dL (0.6-1.3); GLUCOSE 94 mg/dL (74-106); POTASSIUM 4.5 mmol/L (3.5-5.1); SODIUM SERUM 137 mmol/L (136-145); UREA NITROGEN, BLOOD 38 mg/dL (7-18)
[2019-03-16 07:24] LABS: CHOLESTEROL 145 mg/dL (<200); HDL CHOLESTEROL 67 mg/dL (40-60); LDL 61 mg/dL (0-99); TRIGLYCERIDES 109 mg/dL (30-150)
[2019-03-16] MEDS ORDERED: ASPIRIN EC 81 MG TABLET.DR PO SCH (09:00)
[2019-03-16] MEDS: DOCUSATE SODIUM 100 MG CAPSULE PO SCH ×2 (10:05→18:01)
[2019-03-16] MEDS: ASPIRIN 81 MG TAB.CHEW PO SCH (10:06)
[2019-03-16] MEDS: hydrALAZINE HCL 50 MG TABLET PO SCH ×3 (10:06→18:01)
[2019-03-16] MEDS: NATEGLINIDE 60 MG TABLET PO SCH (10:06)
[2019-03-16] MEDS: CALCIUM CARBONATE (1250) 500 MG TABLET PO SCH ×2 (10:06→18:01)
[2019-03-16] MEDS: PANTOPRAZOLE 40 MG TABLET.DR PO SCH (10:06)
[2019-03-16] MEDS: ACETAMINOPHEN 325 MG TABLET PO PRN (10:10)
[2019-03-16] MEDS: ENOXAPARIN SODIUM 30 MG/0.3 ML DISP.SYRIN SQ SCH (11:00)
[2019-03-16] MEDS: IV NS 0.9% 1,000 ML IV PRN (14:08)
--- NOTE | 2019-03-16 14:09 | NUR ---
CALLED PLACED TO DR. VASQUEZ R/T 1) LOVENOX ADMINISTRATION (ALLERGY TO HEPARIN + HGB 11.4 TO 9.9) 2) PT COMPLAINTS OF PAIN, ONLY TYLENOL ORDERED
--- NOTE | 2019-03-16 18:55 | NUR ---
ELECTORAL OFFICER CLOSING NO SIGNIFICANT CHANGES THROUGHOUT SHIFT. PATIENT REMAINS A/OX3. DID NOT RECEIVE CALL BACK FROM DR. VASQUEZ, LOVENOX NOT ADMINISTERED. PATIENT SEEN BY PHYSICAL THERAPY. MAX ASSIST TO EDGE OF BED. PATIENT CALLED SEVERAL TIMES SAYING THAT SHE WANTS TO GO TO THE BATHROOM. REMINDED HER THAT SHE IS UNABLE TO WALK AND A BEDPAN IS AVAILABLE. STATED SHE DOES NOT WANT TO BECAUSE SHE FEELS EMBARRASSED. ENCOURAGED AND COMFORTED. BED ALARM ON. SIDE RAILS UP. L FA IV FOUND TO BE LEAKING @1745, IV ATTEMPTED BY JAYA BOND, UNABLE. WILL ENDORSE TO NOC RN FOR LÁZARO.
--- NOTE | 2019-03-16 20:00 | NUR ---
HORSE RACER NOTE PT IN BED A/O X 3, ARABIC SPEAKING. NO SOB, NO DISTRESS OR DISCOMFORT NOTED. NO S/S OF PAIN NOTED. DENIES PAIN. ON TELE SR WITH BBB 1ST AND 2ND DEGREE BLOCK HR 82. PT PULLED THE IV LINE OUT EARLIER PER DAY SHIFT NURSE. CHARGE NURSE CHELSEY INSERTED NEW LINE #22 G IN RFA, RESUMED IVF NS @ 75 ML/HR, NO S/S OF INFILTRATION NOTED. SIDE RAILS UP X 2 AND CALL LIGHT WITHIN REACH. VSS. ALL NEEDS ATTENDED. CONTINUE TO MONITOR HER.
[2019-03-16] MEDS: ATORVASTATIN 10 MG TABLET PO SCH (22:18)
[2019-03-16] MEDS: INSULIN GLARGINE, 100 UNIT/ML CARTRIDGE SQ SCH (22:46)
[2019-03-17 04:00] VITALS: BP 117/64
[2019-03-17] MEDS: BLOOD SUGAR DIAGNOSTIC 1 EACH STRIP IN SCH ×4 (05:56→23:25)
[2019-03-17] MEDS: IV NS 0.9% 1,000 ML IV PRN ×2 (06:03→19:13)
[2019-03-17 06:49] LABS: BASOPHILS % (AUTO) 0.3 % (0.0-2.0); EOSINOPHILS % (AUTO) 1.6 % (0.0-6.0); HEMATOCRIT 31 % (33-45); HEMOGLOBIN 10.1 g/dL (11.5-14.8); LYMPHOCYTES # (AUTO) 1.3 /CMM (0.8-4.8); LYMPHOCYTES % (AUTO) 25.5 % (20.0-44.0); MEAN CORPUSCULAR HGB CONC 33 g/dl (31.0-36.0); MEAN CORPUSCULAR VOLUME 93 fL (82-100); MONOCYTES # (AUTO) 0.6 /CMM (0.1-1.30); MONOCYTES % (AUTO) 11.5 % (2.0-12.0); NEUTROPHILS # (AUTO) 3.1 /CMM (1.8-8.9); NEUTROPHILS % (AUTO) 61.1 % (43.0-81.0); PLATELET COUNT (AUTO) 168 /CMM (150-450); RED BLOOD CELL COUNT(AUTO) 3.28 MIL/uL (4.0-5.2); WHITE BLOOD COUNT (AUTO) 5.1 K/uL (4.3-11.0)
[2019-03-17 06:53] LABS: CALCIUM, SERUM 8.4 mg/dL (8.5-10.1); CARBON DIOXIDE 25 mmol/L (21-32); CHLORIDE 106 mmol/L (98-107); CREATININE 2.2 mg/dL (0.6-1.3); GLUCOSE 61 mg/dL (74-106); MAGNESIUM 2.2 mg/dL (1.8-2.4); POTASSIUM 4.1 mmol/L (3.5-5.1); SODIUM SERUM 139 mmol/L (136-145); UREA NITROGEN, BLOOD 42 mg/dL (7-18)
[2019-03-17] MEDS ORDERED: PANTOPRAZOLE 40 MG TABLET.DR PO SCH (07:30)
--- NOTE | 2019-03-17 07:54 | NUR ---
NATUROPATH NOTE PT IN BED ALERT ,ORIENTED , ALGERIAN SPEAKING. NO SOB, NO DISTRESS OR DISCOMFORT NOTED. NO S/S OF PAIN NOTED. DENIES PAIN. ON TELE SR WITH BBB WITH 2ND DEGREE BLOCK HR 69 ON IVF NS @ 75 ML/HR, NO S/S OF INFILTRATION NOTED. SIDE RAILS UP X 2 AND CALL LIGHT WITHIN REACH. VSS. ALL NEEDS ATTENDED. CONTINUE TO MONITOR HER. BED IN LOWEST AND LOCKED POSITION , WILL CONT TO MONITOR CLOSELY
[2019-03-17 08:00] VITALS: BP 149/64
[2019-03-17 09:00] VITALS: BP_SYST 149; BP_SYST 160; BP_DIAS 64; BP_DIAS 76
[2019-03-17] MEDS: NATEGLINIDE 60 MG TABLET PO SCH (09:00)
[2019-03-17] MEDS: LEVOTHYROXINE SODIUM 75 MCG TABLET PO SCH (09:14)
[2019-03-17] MEDS: CALCIUM CARBONATE (1250) 500 MG TABLET PO SCH ×2 (09:14→16:36)
[2019-03-17] MEDS: DOCUSATE SODIUM 100 MG CAPSULE PO SCH ×2 (09:14→16:35)
[2019-03-17] MEDS: PANTOPRAZOLE 40 MG TABLET.DR PO SCH (09:14)
[2019-03-17] MEDS: ASPIRIN 81 MG TAB.CHEW PO SCH (09:14)
[2019-03-17] MEDS: hydrALAZINE HCL 50 MG TABLET PO SCH ×3 (09:15→16:36)
[2019-03-17] MEDS: ENOXAPARIN SODIUM 30 MG/0.3 ML DISP.SYRIN SQ SCH (09:16)
--- NOTE | 2019-03-17 09:28 | NUR ---
SUPERINTENDENT MARINE NOTE HOLD STAFLEX, GLUCOSE LEVEL WAS EARLIER 59 MG\DL ALSO UA COLLECTED ORDERED ,ORTHOSTATIC BP SUPINE 149/69 SITTING 160/76 UNABLE TO STAND UP, C\O PAIN AND WEEK , WILL MONITOR
[2019-03-17 10:41] LABS: CREATININE, URINE 22.8 MG/DL (30.0-125.0); URINE TOTAL PROTEIN 106.6 mg/dL (0-11.9)
--- NOTE | 2019-03-17 10:47 | NUR ---
CAMPER ASSEMBLER NOTE PT REFUSED TO DO AT THIS TIME, WILL F\U
[2019-03-17 11:01] LABS: APPEARANCE,URINE Clear (CLEAR); BILIRUBIN,URINE Negative (NEGATIVE); BLOOD, URINE Trace-intact Ery/uL (NEGATIVE); COLOR,URINE Yellow (YELLOW); KETONES,URINE Negative (NEGATIVE); LEUKOCYTE ESTERASE ,URINE Moderate (NEGATIVE); NITRITE, URINE Negative (NEGATIVE); PH,URINE 5.5 (5.0-8.0); PROTEIN,URINE 100 mg/dl (NEGATIVE); UGLUCOSE Negative (NEGATIVE); UROBILINOGEN,URINE 0.2 EU/dL (0.2)
[2019-03-17 11:13] LABS: BACTERIA,URINE 1+ /HPF (None Seen); SQUAMOUS EPITHELIAL CELL,UR Few /HPF (None Seen)
[2019-03-17 12:00] VITALS: BP 148/71
[2019-03-17 12:22] LABS: EOSINOPHIL,URINE Few
[2019-03-17] MEDS: INSULIN REGULAR, HUMAN 100 UNIT/ML 3 ML VIAL SQ PRN ×2 (12:35→17:19)
--- NOTE | 2019-03-17 12:43 | NUR ---
ROAD FREIGHT BRAKE COUPLER NOTE SPOKE WITH DR VASQUEZ NOTIFIED THAT PATIENT UNABLE TO TO DO PT TX , C\O PAIN LT HIP OFFERED TO GIVE TYLENOL BUT PATIENT REFUSED ALSO AWARE OF RESULT ORTHOSTATIC BP NOTIFIED THAT PATIENT UNABLE TO GET UP
--- NOTE | 2019-03-17 14:50 | NUR ---
marlo galindo note unable to ambulate at this time patient c\o pain offered to have Tylenol but refused will cont to monitor Addendum: 03/17/19 at 1546 by AGATHA RAMOS RN MARLO PABON TYLENOL PO GIVEN ORDERED FOR LT LEG Addendum: 03/17/19 at 1606 by AGATHA RAMOS RN ASSISTED TO BSC ,ABLE TO MAKE BM KEEP CLEAN DRY, ALL NEEDS ATTENDED
[2019-03-17] MEDS: ACETAMINOPHEN 325 MG TABLET PO PRN (15:23)
[2019-03-17 16:00] VITALS: BP 164/80
--- NOTE | 2019-03-17 19:01 | NUR ---
ms rn note new hl on rt ac chandrika 24 inserted with good blood return ,cont on ivf
--- NOTE | 2019-03-17 19:30 | NUR ---
MS RN OPENING NOTE RECEIVED PATIENT A/O X3 GERMAN SPEAKING. NO SIGNS OF DISTRESS OR DISCOMFORT. PATIENT IS ON ROOM AIR WITH O2 OF 99%. PATIENT IS AMBULATORY TO USE THE RESTROOM ON COMMODE. HAS IV ACCESS ON RFA #22G WITH NS RUNNING AT 75MLHR. ALL SAFETY PRECAUTIONS APPLIED, BED ALARM ON, CALL LIGHT WITHIN REACH, BED PLACED IN LOW POSITION, AND SITTER AT BEDSIDE. WILL CONTINUE TO MONITOR.
[2019-03-17 20:00] VITALS: BP_SYST 112; BP_SYST 144; BP_DIAS 72
[2019-03-17] MEDS: ATORVASTATIN 10 MG TABLET PO SCH (22:33)
[2019-03-17] MEDS: INSULIN GLARGINE, 100 UNIT/ML CARTRIDGE SQ SCH (23:01)
[2019-03-18 04:00] VITALS: BP 147/66
[2019-03-18] MEDS: IV NS 0.9% 1,000 ML IV PRN ×2 (05:48→23:32)
[2019-03-18] MEDS: BLOOD SUGAR DIAGNOSTIC 1 EACH STRIP IN SCH ×4 (06:51→22:26)
--- NOTE | 2019-03-18 07:15 | NUR ---
RN OPENING NOTES: PATIENT IN BED, ALERT, AND VERBALLY RESPONSIVE. NO SOB. NO C/O PAIN. ALL SAFETY PRECAUTIONS PROVIDED. BED LOCKED AND IN LOW POSITION. BED ALARM ON. (R) FOREARM IV 22G INTACT. CALL LIGHT WITHIN REACH. WILL CONT. TO MONITOR.
[2019-03-18 07:40] LABS: BASOPHILS % (AUTO) 0.6 % (0.0-2.0); EOSINOPHILS % (AUTO) 3.8 % (0.0-6.0); HEMATOCRIT 32 % (33-45); HEMOGLOBIN 10.6 g/dL (11.5-14.8); LYMPHOCYTES # (AUTO) 1.3 /CMM (0.8-4.8); LYMPHOCYTES % (AUTO) 28.7 % (20.0-44.0); MEAN CORPUSCULAR HGB CONC 34 g/dl (31.0-36.0); MEAN CORPUSCULAR VOLUME 93 fL (82-100); MONOCYTES # (AUTO) 0.5 /CMM (0.1-1.30); MONOCYTES % (AUTO) 11.1 % (2.0-12.0); NEUTROPHILS # (AUTO) 2.6 /CMM (1.8-8.9); NEUTROPHILS % (AUTO) 55.8 % (43.0-81.0); PLATELET COUNT (AUTO) 176 /CMM (150-450); WHITE BLOOD COUNT (AUTO) 4.7 K/uL (4.3-11.0)
--- NOTE | 2019-03-18 07:40 | NUR ---
MS RN OPENING NOTE PATIENT ASLEEP IN ROOM WITH NO SIGNS OF DISTRESS. PATIENT ON ROOM AIR WITH NO SOB. ALL SAFETY PRECAUTIONS APPLIED. ENDORSED PATIENT TO MORNING NURSE.
[2019-03-18 08:00] VITALS: BP 160/84
[2019-03-18 08:21] LABS: ALANINE AMINOTRANSFERASE 11 U/L (12-78); ALBUMIN 2.3 g/dL (3.4-5.0); ALKALINE PHOSPHATASE 108 U/L (46-116); ASPARTATE AMINOTRANSFERASE 16 U/L (15-37); BILIRUBIN,TOTAL 0.3 mg/dL (0.2-1.0); CALCIUM, SERUM 8.4 mg/dL (8.5-10.1); CARBON DIOXIDE 26 mmol/L (21-32); CHLORIDE 105 mmol/L (98-107); CREATININE 2.2 mg/dL (0.6-1.3); GLUCOSE 81 mg/dL (74-106); PHOSPHORUS 2.7 mg/dL (2.5-4.9); POTASSIUM 3.5 mmol/L (3.5-5.1); SODIUM SERUM 139 mmol/L (136-145); TOTAL PROTEIN, SERUM 6.5 g/dL (6.4-8.2); UREA NITROGEN, BLOOD 30 mg/dL (7-18)
[2019-03-18 08:31] LABS: CREATINE KINASE, TOTAL 57 U/L (26-192); FERRITIN 43 ng/mL (8-388)
[2019-03-18] MEDS: hydrALAZINE HCL 50 MG TABLET PO SCH ×3 (08:40→16:34)
[2019-03-18] MEDS: LEVOTHYROXINE SODIUM 75 MCG TABLET PO SCH (08:40)
[2019-03-18] MEDS: CALCIUM CARBONATE (1250) 500 MG TABLET PO SCH ×2 (08:41→16:34)
[2019-03-18] MEDS: DOCUSATE SODIUM 100 MG CAPSULE PO SCH ×2 (08:41→16:34)
[2019-03-18] MEDS: ASPIRIN 81 MG TAB.CHEW PO SCH (08:41)
[2019-03-18] MEDS: PANTOPRAZOLE 40 MG TABLET.DR PO SCH (08:41)
[2019-03-18] MEDS: NATEGLINIDE 60 MG TABLET PO SCH (08:41)
[2019-03-18] MEDS: ENOXAPARIN SODIUM 30 MG/0.3 ML DISP.SYRIN SQ SCH (08:42)
[2019-03-18 08:55] LABS: IRON, SERUM 48 ug/dl (50-175); TOTAL IRON BINDING CAPACITY 248 ug/dl (250-450)
[2019-03-18 16:00] VITALS: BP 161/71
--- NOTE | 2019-03-18 16:00 | NUR ---
RN NOTE: PATIENT NOTED WITH BP 161/71. HYDRALAZINE GIVEN. BP RECHECKED AFTER 30 MINS AND BP WENT DOWN TO 119/62.
[2019-03-18] MEDS: INSULIN REGULAR, HUMAN 100 UNIT/ML 3 ML VIAL SQ PRN (18:19)
--- NOTE | 2019-03-18 18:41 | NUR ---
RN CLOSING NOTE PATIENT IN BED, EATING DINNER. SITTER AT BEDSIDE. ALL MEDS GIVEN. SBP FROM 161 WENT DOWN TO 140. NO COMPLAINS OF ANY PAIN NOR SOB AT THIS TIME. ALL NEEDS MET. IVF RUNNING AT 75 ML/HR. BED LOCKED AND IN LOWEST POSITION. CALL LIGHT WITHIN REACH. WILL ENDORSE TO NOC SHIFT FOR LÁZARO
[2019-03-18 20:00] VITALS: BP 136/72
[2019-03-18] MEDS: INSULIN GLARGINE, 100 UNIT/ML CARTRIDGE SQ SCH (22:00)
[2019-03-18] MEDS: ATORVASTATIN 10 MG TABLET PO SCH (22:26)
--- NOTE | 2019-03-18 22:34 | NUR ---
MS/RN LANTUS INSULIN NOT GIVEN, BLOOD SUGAR 66, PATIENT IS ASYMPTOMATIC, SNACK GIVEN. WILL MONITOR.
--- NOTE | 2019-03-18 22:53 | NUR ---
MS/RN ON INITIAL ROUNDS AT 1930, FOUND PATIENT IN BED AWAKE, ALERT, COMFORTABLE, NO C/O PAIN, NO DISTRESS NOTED, CALL LIGHT IN REACH, WILL MONITOR.
--- NOTE | 2019-03-18 23:31 | NUR ---
MS/RN PATIENT IS SLEEPING AT THIS TIME, APPEAR COMFORTABLE, NO SIGNS OF DISTRESS NOTED, CALL LIGHT IN REACH. WILL CONTINUE TO MONITOR.
[2019-03-19 04:00] VITALS: BP 171/69
[2019-03-19] MEDS: hydrALAZINE HCL 50 MG TABLET PO SCH ×3 (04:31→16:18)
--- NOTE | 2019-03-19 04:40 | NUR ---
MS/RN BP 171/69, APRESOLINE 100 MG PO WAS GIVEN. WILL MONITOR.
[2019-03-19 05:43] VITALS: BP 150/73
--- NOTE | 2019-03-19 05:43 | NUR ---
MS/RN BP 150/73, WILL CONTINUE TO MONITOR.
[2019-03-19] MEDS: BLOOD SUGAR DIAGNOSTIC 1 EACH STRIP IN SCH ×3 (06:15→12:35)
--- NOTE | 2019-03-19 06:32 | NUR ---
MS/RN PATIENT IS AWAKE, COMFORTABLE, NO DISTRESS NOTED, ALL NEEDS ATTENDED AT THIS TIME, WILL CONTINUE TO MONITOR.
--- NOTE | 2019-03-19 07:10 | NUR ---
RN OPENING NOTES: PATIENT IN BED, ASLEEP, BUT EASILY AROUSABLE. A&OX3. NAURUAN-SPEAKING. NO SOB. NO C/O PAIN OR DISCOMFORT. (R) FOREARM 22G IV PATENT, INTACT, AND SALINE FLUSHED. BED LOCKED AND IN LOWEST POSITION. CALL LIGHT WITHIN REACH. WILL CONT. TO MONITOR.
[2019-03-19 08:00] VITALS: BP 125/62
[2019-03-19 08:06] LABS: *SPE A/G RATIO 0.8 (0.7-1.7); *SPE ALBUMIN 2.6 g/dL (2.9-4.4); *SPE ALPHA-1-GLOBULIN 0.2 g/dL (0.0-0.4); *SPE ALPHA-2-GLOBULIN 0.9 g/dL (0.4-1.0); *SPE BETA GLOBULIN 0.8 g/dL (0.7-1.3); *SPE GLOBULIN, TOTAL 3.2 g/dL (2.2-3.9); *SPE M-SPIKE Not Observed g/dL (Not Observed); *SPEGAMMA GLOBULIN 1.3 g/dL (0.4-1.8)
[2019-03-19] MEDS: DOCUSATE SODIUM 100 MG CAPSULE PO SCH ×2 (08:48→16:18)
[2019-03-19] MEDS: PANTOPRAZOLE 40 MG TABLET.DR PO SCH (08:48)
[2019-03-19] MEDS: CALCIUM CARBONATE (1250) 500 MG TABLET PO SCH ×2 (08:48→16:18)
[2019-03-19] MEDS: ASPIRIN 81 MG TAB.CHEW PO SCH (08:48)
[2019-03-19] MEDS: NATEGLINIDE 60 MG TABLET PO SCH (08:49)
[2019-03-19] MEDS: LEVOTHYROXINE SODIUM 75 MCG TABLET PO SCH (08:49)
[2019-03-19] MEDS: ENOXAPARIN SODIUM 30 MG/0.3 ML DISP.SYRIN SQ SCH (08:50)
[2019-03-19] MEDS ORDERED: CEPH-569 PO (09:56)
--- NOTE | 2019-03-19 11:39 | NUR ---
RN NOTE PER CM, PATIENT IS GOING TO [facility]. MATERIAL HANDLING EQUIPMENT STEVEDORE TIME AT 1500.
[2019-03-19] MEDS: INSULIN REGULAR, HUMAN 100 UNIT/ML 3 ML VIAL SQ PRN (12:46)
[2019-03-19 14:07] LABS: PTH, INTACT 76 pg/mL (15-65)
--- NOTE | 2019-03-19 14:23 | NUR ---
RN NOTE TALKED TO SON OVER THE PHONE, AWARE THAT PATIENT IS GOING TO [place]
--- NOTE | 2019-03-19 14:46 | NUR ---
RN NOTE: REPORT GIVEN TO VARUN BECKETT FROM [facility].
[2019-03-19 16:18] VITALS: BP 143/54
--- NOTE | 2019-03-19 16:39 | NUR ---
LAW FIRM PARTNER NOTES: PATIENT IN BED, AWAKE, AND VERBALLY RESPONSIVE. NO SOB. NO C/O PAIN. PATIENT IS DISCHARGING TO [facility]. (R) FOREARM 22G IV SITE REMOVED. SKIN IS WARM AND INTACT. PATIENT IN STABLE CONDITION. DC INSTRUCTIONS AND PAPERWORK PROVIDED TO AMBULANCE PERSONNEL.
== END 2019-03-19 16:45 | DRG 73 ==
LOC: ER 11:14 → TELE1 14:04 → MEDSG1 03-17 12:22
PROVIDERS: ADMIT Legal Medicine; ATTEND Nurse Practitioner Acute Care
DX: G90.8 Other disorders of autonomic nervous system (principal); N17.0 Acute kidney failure with tubular necrosis; E11.22 Type 2 diabetes mellitus with diabetic chronic kidney disease; Z86.73 Personal history of transient ischemic attack (TIA), and cerebral infarction without residual deficits; I12.9 Hypertensive chronic kidney disease with stage 1 through stage 4 chronic kidney disease, or unspecified chronic kidney disease; F03.90 Unspecified dementia, unspecified severity, without behavioral disturbance, psychotic disturbance, mood disturbance, and anxiety; N18.3 Chronic kidney disease, stage 3 (moderate); M25.552 Pain in left hip; E03.9 Hypothyroidism, unspecified; E78.5 Hyperlipidemia, unspecified; I44.1 Atrioventricular block, second degree; Z79.84 Long term (current) use of oral hypoglycemic drugs; Z79.4 Long term (current) use of insulin
CPT/HCPCS: 36415; 70450-TC; 71045-TC; 73502; 80048-TC; 80053-TC; 80061-TC; 80076-TC; 81000-TC; 82550-TC; 82570-TC; 82728-TC; 82962-TC; 83540-TC; 83735-TC; 83970; 84100-TC; 84155; 84155-TC; 84165; 84300-TC; 84484-TC; 85025-TC; 85730-TC; 87081-TC; 87086-TC; 87186-TC; 93307-TC; 97110-TC; 97112-TC; 97116-TC; 97530-TC; G0378; J1650; J1815; J7030; J7040

== ENCOUNTER 2021-01-17 15:51 | Inpatient (IN) | payer MEDICARE, OTHER ==
[~2021-01-17] VITALS: Ht 157.5 cm; Wt 55.8 kg
[~2021-01-17 15:51] MED LIST changes: -ASPI-1152 PO; +ASPI-1420 PO; -CALC500T51 PO; +CALC500T53 PO; +CEPH-569 PO; +DOCU-141 PO; +HYDR100T27 PO; +INSU100I26 SQ; -INSU3INS6 SQ; -LEVO100T9 PO; +LEVO150T8 PO; -LOSA50TA39 PO; -NIFE60TA2 PO; +PANT40TA2 PO; -PROP20TA7 PO; -VALS160T2 PO
--- NOTE | 2021-01-17 16:30 | NUR ---
BIB PA [facility] FOR LUE SWELLING/BRUISING. NO FALL ENDORSED. ON ROOM AIR, BREATHING EVENLY AND UNLABORED. CONNECTED TO THE MONITOR AND PULSE OX. KEPT COMFORTABKE, WILL CONTINUE TO MONITOR ACCORDINGLY.
[2021-01-17] MEDS ORDERED: FERR325T23 PO (16:41)
[2021-01-17] MEDS ORDERED: GLUC1KIT IM (16:41)
[2021-01-17] MEDS ORDERED: INSU100V11 SQ (16:41)
[2021-01-17] MEDS ORDERED: CRAN425C6 PO (16:41)
[2021-01-17] MEDS ORDERED: MIRT7.5T10 PO (16:41)
[2021-01-17] MEDS ORDERED: ASPI-1169 PO (16:41)
[2021-01-17] MEDS ORDERED: NUT.237L67 PO (16:41)
[2021-01-17] MEDS ORDERED: NA P133E RC (16:41)
[2021-01-17] MEDS ORDERED: MAGN400O6 PO (16:41)
[2021-01-17] MEDS ORDERED: AMIN30LI27 PO (16:41)
[2021-01-17] MEDS ORDERED: BISA10SU11 RC (16:41)
[2021-01-17] MEDS ORDERED: ACET-868 PO (16:41)
[2021-01-17 17:18] LABS: BASOPHILS % (AUTO) 0.4 % (0.0-2.0); EOSINOPHILS % (AUTO) 0.6 % (0.0-6.0); HEMATOCRIT 27 % (33-45); HEMOGLOBIN 9.1 g/dL (11.5-14.8); LYMPHOCYTES # (AUTO) 1.4 K/uL (0.8-4.8); LYMPHOCYTES % (AUTO) 24.9 % (20.0-44.0); MEAN CORPUSCULAR HGB CONC 33 g/dl (31.0-36.0); MEAN CORPUSCULAR VOLUME 93 fL (82-100); MONOCYTES # (AUTO) 0.6 K/uL (0.1-1.30); MONOCYTES % (AUTO) 9.8 % (2.0-12.0); NEUTROPHILS # (AUTO) 3.7 K/uL (1.8-8.9); NEUTROPHILS % (AUTO) 64.3 % (43.0-81.0); PLATELET COUNT (AUTO) 196 K/uL (150-450); RED BLOOD CELL COUNT(AUTO) 2.94 MIL/uL (4.0-5.2); WHITE BLOOD COUNT (AUTO) 5.7 K/uL (4.3-11.0)
[2021-01-17 17:31] LABS: CALCIUM, SERUM 8.3 mg/dL (8.5-10.1); CARBON DIOXIDE 25 mmol/L (21-32); CHLORIDE 105 mmol/L (98-107); CREATININE 2.3 mg/dL (0.6-1.3); GLUCOSE 171 mg/dL (74-106); SODIUM SERUM 141 mmol/L (136-145); UREA NITROGEN, BLOOD 44 mg/dL (7-18)
--- NOTE | 2021-01-17 18:15 | NUR ---
CALLED DR. VASQUEZ [phone] LEFT MS TO CALL US BACK.
--- NOTE | 2021-01-17 18:36 | NUR ---
covid swab collected and sent to lab.
--- NOTE | 2021-01-17 19:15 | NUR ---
CALLED TRUE FOR READING.
--- NOTE | 2021-01-17 19:50 | NUR ---
Nena amaya in [facility] - 01/17/21 at 2015 by JON MARLO 103
--- NOTE | 2021-01-17 20:14 | NUR ---
report given to m/s rn millicent. will transport pt to room 103
[2021-01-17] MEDS ORDERED: DEXTROSE 50%-WATER 50 ML DISP.SYRIN IV PRN ×2 (20:30→21:00)
[2021-01-17] MEDS ORDERED: MAGNESIUM HYDROXIDE 30 ML UDC PO PRN (20:30)
[2021-01-17] MEDS ORDERED: ONDANSETRON HCL/PF 4 MG/2 ML VIAL IVP PRN (20:30)
[2021-01-17] MEDS ORDERED: BISACODYL SUPP (10 MG) 10 MG/SUPP.RECT SUPP.RECT RC PRN (20:30)
[2021-01-17] MEDS ORDERED: NA PHOS,M-B/NA PHOS,DI-BA 1 EA ENEMA RC PRN (20:30)
[2021-01-17] MEDS ORDERED: ACETAMINOPHEN 325 MG TABLET PO PRN (20:30)
--- NOTE | 2021-01-17 20:30 | NUR ---
PATIENT TRANSFERRED TO [facility] IN NO ACUTE DISTRESS.
--- NOTE | 2021-01-17 20:35 | NUR ---
RN ADMITTING NOTE ADMIT 80YEAR OLD FEMALE TO [facility] UNIT AT ROOM 103 UNDER MEDICAL SERVICE OF DR VASQUEZ WITH FOLLOWING DIAGNOSIS: LEFT HUMORAL FRACTURE,PATIENT ALERT ORIENTED X3 [place] SPEAKING ON ROOM AIR O2:97% IV SITE IS ON RIGHT AC #18 G INTACT PATENT,INCONTINENT TO BOWEL/BLADDER,LEFT UPPER ARM AND CHEST SWELLING AND BRUISING,SAFETY MEASURE IMPLEMENT BED IN LOW POSITION AND LOCKED,BED ALARM IS ON CONTINUE TO MONITOR.
[2021-01-17] MEDS ORDERED: GLUCAGON,HUMAN RECOMBINANT 1 MG/VIAL VIAL IM PRN (21:00)
[2021-01-17] MEDS ORDERED: MORPHINE SULFATE INJ 2 MG/ML DISP.SYRIN IV PRN (21:00)
[2021-01-17] MEDS ORDERED: FAMOTIDINE (20 MG) 20 MG TABLET PO SCH (21:00)
[2021-01-17] MEDS ORDERED: ONDANSETRON HCL/PF 4 MG/2 ML VIAL IV PRN (21:00)
[2021-01-17] MEDS ORDERED: IV NS 0.9% 1,000 ML IV PRN (21:00)
[2021-01-17] MEDS ORDERED: INSULIN REGULAR, HUMAN 100 UNIT/ML 3 ML VIAL SQ PRN (21:00)
[2021-01-17] MEDS ORDERED: HEPARIN SODIUM, PORCINE 5000 UNITS/1 ML VIAL SQ SCH (21:00)
[2021-01-17] MEDS: IV NS 0.9% 1,000 ML IV PRN (21:05)
[2021-01-17] MEDS: FAMOTIDINE (20 MG) 20 MG TABLET PO SCH (21:08)
[2021-01-17 22:00] VITALS: BP 132/96
[2021-01-17] MEDS ORDERED: BLOOD SUGAR DIAGNOSTIC 1 EACH STRIP IN SCH (22:00)
[2021-01-17] MEDS: ATORVASTATIN 10 MG TABLET PO SCH (22:08)
[2021-01-17] MEDS: MORPHINE SULFATE INJ 2 MG/ML DISP.SYRIN IV PRN (22:09)
--- NOTE | 2021-01-17 22:09 | NUR ---
RN NOTE MORPHINE 2MG PRN GIVEN FOR PAIN MANAGEMENT CONTINUE TO MONITOR.
[2021-01-17] MEDS: BLOOD SUGAR DIAGNOSTIC 1 EACH STRIP IN SCH (22:30)
[2021-01-17] MEDS: INSULIN REGULAR, HUMAN 100 UNIT/ML 3 ML VIAL SQ PRN (22:34)
--- NOTE | 2021-01-18 04:14 | NUR ---
RN NOTE MORPHINE GIVEN FOR PT GROANING, LEFT ARM FRACTURE, AND VS CHANGING, ADMINISTERED PRN ORDERED. WILL CONT TO MONITOR Addendum: 01/19/21 at 0416 by KRISHNA COLLINS RN DISREGARD INCORRECT DATE
[2021-01-18] MEDS: MORPHINE SULFATE INJ 2 MG/ML DISP.SYRIN IV PRN ×3 (06:10→18:16)
--- NOTE | 2021-01-18 06:10 | NUR ---
RN NOTE MORPHINE 2MG PRN GIVEN FOR PAIN MANAGEMENT CONTINUE TO MONITOR
--- NOTE | 2021-01-18 06:42 | NUR ---
RN NOTE PATIENT REMAINS ON ALERT ORIENTED X3 [place] SPEAKING NO SOB NOT ACUTE DISTRESS NOTED ON IV SITE IS ON RIGHT AC INTACT PATENT ON IV HYDRATION NS 0.9% 75CC/HR PAIN MED GIVEN FOR PAIN MANAGEMENT KEPT CLEAN AND DRY ALL THE TIME,KEPT COMFORTABLE ALL NEEDS MET ENDORSE NEXT COMING SHIFT FOR CONTINUATION OF CARE
--- NOTE | 2021-01-18 07:30 | NUR ---
RN NOTE RECEIVED PT LYING IN BED. NO ACUTE DISTRESS NOTED. VSS, AFEBRILE NO SOB NOTED. PATIENT REMAINS ON ALERT ORIENTED X3 [place] SPEAKING IV SITE IS ON RIGHT AC INTACT PATENT ON IV HYDRATION NS 0.9% 75CC/HR. PT DENIES PAIN AND OR DISCOMFORT AT PRESENT TIME. PT STABLE ON ROOM AIR. ASSISTED WITH REPOSITIONING FOR SKIN INTEGRITY AND COMFORT. WILL CONT TO MONITOR PT'S CONDITION
[2021-01-18] MEDS: BLOOD SUGAR DIAGNOSTIC 1 EACH STRIP IN SCH ×4 (07:59→21:43)
[2021-01-18] MEDS: LEVOTHYROXINE SODIUM 75 MCG TABLET PO SCH (08:24)
[2021-01-18] MEDS: PANTOPRAZOLE 40 MG TABLET.DR PO SCH (08:24)
[2021-01-18] MEDS: hydrALAZINE HCL 50 MG TABLET PO SCH ×3 (09:00→17:30)
[2021-01-18] MEDS: DOCUSATE SODIUM 100 MG CAPSULE PO SCH ×2 (09:33→17:23)
[2021-01-18] MEDS: CALCIUM CARBONATE (1250) 500 MG TABLET PO SCH ×2 (09:34→17:23)
[2021-01-18] MEDS: PROSOURCE / PROSTAT (PYXIS) 30 ML UDC GT SCH ×2 (09:34→17:23)
[2021-01-18] MEDS: MIRTAZAPINE 15 MG TABLET PO SCH (09:34)
[2021-01-18] MEDS: FAMOTIDINE (20 MG) 20 MG TABLET PO SCH ×2 (09:34→21:43)
[2021-01-18] MEDS: NATEGLINIDE 60 MG TABLET PO SCH (09:34)
[2021-01-18] MEDS: FERROUS SULFATE (325 MG) 325 MG/TAB TABLET PO SCH ×2 (09:34→17:23)
[2021-01-18] MEDS: NEPRO VAN 237 ML CAN PO SCH ×2 (09:37→17:30)
[2021-01-18 10:31] VITALS: BP 140/49
[2021-01-18] MEDS: INSULIN REGULAR, HUMAN 100 UNIT/ML 3 ML VIAL SQ PRN ×2 (12:07→22:41)
[2021-01-18 12:11] LABS: IRON, SERUM 56 ug/dl (50-175); TOTAL IRON BINDING CAPACITY 260 ug/dl (250-450)
--- NOTE | 2021-01-18 13:00 | NUR ---
RN NOTE: PAIN PT C/O LEFT UPPER ARM PAIN. 01/31 MEDICATED WITH MORPHINE 2MG IVP. WILL CONT TO MONITOR EFFECTIVENESS OF PRN MEDICATION
[2021-01-18 13:02] LABS: FERRITIN 33 ng/mL (8-388)
[2021-01-18] MEDS: IV NS 0.9% 1,000 ML IV PRN (13:12)
[2021-01-18] MEDS: ASPIRIN 81 MG TAB.CHEW PO SCH (17:23)
[2021-01-18] MEDS ORDERED: Medication Not On Formulary EA (Cranberry Extract (Cranberry) 425 MG) PO SCH (18:00)
--- NOTE | 2021-01-18 18:16 | NUR ---
RN NOTE: PAIN PT C/O 01/31 LEFT UPPER ARM PAIN. MEDICATED WITH MORPHINE 2MG IVP. WILL CONT TO MONITOR EFFECTIVENESS OF PRN MEDICATION.
--- NOTE | 2021-01-18 19:50 | NUR ---
RN OPENING NOTES REC'D PT IN BED, S/O X2 PT CONFUSED AT TIMES, REORIENT. PT TURKMEN SPEAKING, AML ANALYST UTILIZED. PT IS ON ROOM AIR, TOLERATING WELL. NO SOB NO RESP DISTRESS. PT IS ON MED SURG MONITORING. PT REFUSES TO KEEP LEFT ARM IN SLING. PT DENIES PAIN. IV SITE FLUSHED, ASEPTICALLY, PATENT, NO S/S OF INFILTRATION NOTED. PT HAS IVF NS RUNNING AT 75ML/HR. SAFETY MEASURES IN PLACE HOB ELEVATED. SIDE RAILS UP X2. BED LOCKED IN LOWEST POSITION. WITH BED ALARM ON. CALL LIGHT WITHIN REACH. WILL CONT TO MONITOR CLOSELY.
[2021-01-18 20:00] VITALS: BP 170/76
[2021-01-18] MEDS: ATORVASTATIN 10 MG TABLET PO SCH (21:43)
--- NOTE | 2021-01-18 22:36 | NUR ---
RN NOTE PT BP MULTIPLE TIMES. SBP 170s MOST RECENT, BP 175/87 NOTIFIED MD VASQUEZ, ORDERS FOR CLONIDINE 0.1MG PO Q6H PRN FOR SBP >160 CARRIED OUT
--- NOTE | 2021-01-18 22:40 | NUR ---
RN NOTE PT TEMP IS STILL 100.0 AFTER ICE BATH, PT TAKES OFF COLD COMPRESS AND ICE PACKS REFUSED, TYLENOL ADMINISTERED PRN, PAIN ALSO VERBALIZED IN LEFT ARM. WILL CONT TO MONITOR
[2021-01-18 23:00] VITALS: BP 159/96
[2021-01-18] MEDS ORDERED: CLONIDINE HCL 0.1 MG TABLET PO PRN (23:00)
[2021-01-19] VITALS (7 sets, daily range): BP systolic 124–199; BP diastolic 58–92
[2021-01-19] MEDS: MORPHINE SULFATE INJ 2 MG/ML DISP.SYRIN IV PRN (03:42)
[2021-01-19] MEDS: IV NS 0.9% 1,000 ML IV PRN (03:51)
--- NOTE | 2021-01-19 03:54 | NUR ---
RX CATAPRES @2300 CATAPRES ADMINISTERED FOR PREVIOUS BP FORGOT TO SCAN VS: HR 76 BP 175/87
--- NOTE | 2021-01-19 04:17 | NUR ---
RN NOTE MORPHINE GIVEN FOR PT GROANING, LEFT ARM FRACTURE, AND VS CHANGING, ADMINISTERED PRN ORDERED. WILL CONT TO MONITOR
--- NOTE | 2021-01-19 05:30 | NUR ---
RN NOTE PT REFUSED AM LABS AT THIS TIME, WILL TRY AGAIN LATER, WILL ENDORSE TO DAY SHIFT
--- NOTE | 2021-01-19 06:44 | NUR ---
RN CLOSING NOTES PT REMAINS ON ROOM AIR, SLEEPING WELL. NO SOB. NO DISTRESS NOTED. ALL DUE MEDS GIVEN. LEFT ARM REMAINS IN SLING. ALL DUE MEDS GIVEN ORDERED. IVF RUNNING ORDERED. NO S/S OF INFILTRATION NOTED. CHANGED AND CLEANED X2. SAFETY MEASURES IN PLACE. HOB ELEVATED, SIDE RAILS UP X2 BED LOCKED IN LOWEST POSITION WITH BED ALARM ON. CALL LIGHT WITHIN REACH. WILL ENDORSE TO DAY SHIFT RN FOR CONTINUATION OF CARE.
--- NOTE | 2021-01-19 06:46 | NUR ---
RN CLOSING NOTES PT REMAINS ON 40L HF AT 70% NO CHANGES. NO DISTRESS NOTED. ALL DUE MEDS GIVEN. PT DENIES PAIN AT THIS TIME. ALL NEEDS ATTENDED. SAFETY MEASURES IN PLACE. HOB ELEVATED, SIDE RAILS UP X2 BED LOCKED IN LOWEST POSITION WITH BED ALARM ON. CALL LIGHT WITHIN REACH. WILL ENDORSE TO DAY SHIFT RN FOR CONTINUATION OF CARE. Addendum: 01/19/21 at 0647 by KRISHNA COLLINS RN DISREGARD THIS NOTE, WRONG PATIENT
[2021-01-19] MEDS: DOCUSATE SODIUM 100 MG CAPSULE PO SCH ×2 (09:03→17:21)
[2021-01-19] MEDS: MIRTAZAPINE 15 MG TABLET PO SCH (09:03)
[2021-01-19] MEDS: FERROUS SULFATE (325 MG) 325 MG/TAB TABLET PO SCH ×2 (09:03→17:23)
[2021-01-19] MEDS: NATEGLINIDE 60 MG TABLET PO SCH (09:03)
[2021-01-19] MEDS: CALCIUM CARBONATE (1250) 500 MG TABLET PO SCH ×2 (09:03→17:23)
[2021-01-19] MEDS: FAMOTIDINE (20 MG) 20 MG TABLET PO SCH ×2 (09:04→21:28)
[2021-01-19] MEDS: PROSOURCE / PROSTAT (PYXIS) 30 ML UDC GT SCH ×2 (09:04→17:24)
[2021-01-19] MEDS: hydrALAZINE HCL 50 MG TABLET PO SCH ×3 (09:04→17:22)
[2021-01-19] MEDS: NEPRO VAN 237 ML CAN PO SCH ×2 (09:04→17:24)
[2021-01-19] MEDS: PANTOPRAZOLE 40 MG TABLET.DR PO SCH (09:09)
[2021-01-19] MEDS: LEVOTHYROXINE SODIUM 75 MCG TABLET PO SCH (09:09)
[2021-01-19] MEDS: INSULIN REGULAR, HUMAN 100 UNIT/ML 3 ML VIAL SQ PRN ×5 (09:21→23:00)
[2021-01-19] MEDS: BLOOD SUGAR DIAGNOSTIC 1 EACH STRIP IN SCH ×5 (09:22→22:57)
--- NOTE | 2021-01-19 17:05 | NUR ---
Patient refuses labwork for second time this shift. Sergei Tello RN
[2021-01-19] MEDS: ASPIRIN 81 MG TAB.CHEW PO SCH (17:23)
--- NOTE | 2021-01-19 20:00 | NUR ---
RN OPENING NOTES RECEIVED PT IN BED, S/O X2 PT WITH CONFUSION . PT JAPANESE SPEAKING. PT IS ON ROOM AIR, TOLERATING WELL. NO SOB NO RESP DISTRESS. PT REFUSES TO KEEP LEFT ARM IN SLING. PT DENIES PAIN. IV SITE FLUSHED, PATENT, NO S/S OF INFILTRATION NOTED. PT HAS IVF NS AT 75ML/HR. SAFETY MEASURES IN PLACE HOB ELEVATED. SIDE RAILS UP X2. BED LOCKED IN LOWEST POSITION. WITH BED ALARM ON. CALL LIGHT WITHIN REACH.V/S STABLE AFEBRILE ,WILL CONT TO MONITOR CLOSELY.
[2021-01-19] MEDS: ATORVASTATIN 10 MG TABLET PO SCH (21:28)
--- NOTE | 2021-01-19 22:00 | NUR ---
MS RN NOTES BLOOD SUGAR OF 102 MG/DL NO COVERAGE GIVEN PER SLIDING SCALE , PTS KEPT WARM AND COMFORTABLE.
[2021-01-19 22:41] LABS: BASOPHILS % (AUTO) 0.5 % (0.0-2.0); EOSINOPHILS % (AUTO) 3.7 % (0.0-6.0); HEMATOCRIT 26 % (33-45); HEMOGLOBIN 8.6 g/dL (11.5-14.8); LYMPHOCYTES # (AUTO) 1.7 K/uL (0.8-4.8); LYMPHOCYTES % (AUTO) 26.3 % (20.0-44.0); MEAN CORPUSCULAR HGB CONC 33 g/dl (31.0-36.0); MEAN CORPUSCULAR VOLUME 94 fL (82-100); MONOCYTES # (AUTO) 0.5 K/uL (0.1-1.30); NEUTROPHILS # (AUTO) 3.9 K/uL (1.8-8.9); NEUTROPHILS % (AUTO) 61.5 % (43.0-81.0); PLATELET COUNT (AUTO) 155 K/uL (150-450); RED BLOOD CELL COUNT(AUTO) 2.74 MIL/uL (4.0-5.2); WHITE BLOOD COUNT (AUTO) 6.4 K/uL (4.3-11.0)
[2021-01-19 22:53] LABS: ALANINE AMINOTRANSFERASE 11 U/L (12-78); ALBUMIN 2.7 g/dL (3.4-5.0); ALKALINE PHOSPHATASE 89 U/L (46-116); ASPARTATE AMINOTRANSFERASE 16 U/L (15-37); BILIRUBIN,TOTAL 0.3 mg/dL (0.2-1.0); CALCIUM, SERUM 7.9 mg/dL (8.5-10.1); CARBON DIOXIDE 27 mmol/L (21-32); CHLORIDE 106 mmol/L (98-107); CREATININE 2.5 mg/dL (0.6-1.3); GLUCOSE 111 mg/dL (74-106); MAGNESIUM 2.3 mg/dL (1.8-2.4); PHOSPHORUS 3.4 mg/dL (2.5-4.9); POTASSIUM 4.5 mmol/L (3.5-5.1); SODIUM SERUM 139 mmol/L (136-145); TOTAL PROTEIN, SERUM 6.5 g/dL (6.4-8.2); UREA NITROGEN, BLOOD 43 mg/dL (7-18)
--- NOTE | 2021-01-20 01:00 | NUR ---
ms rn notes pts transfer to [facility] room 325-1 ,in stanle condition , endorse to VARUN Perdomo for continuity of care.
--- NOTE | 2021-01-20 01:18 | NUR ---
CONTINUITY OF CARE Patient brought in by bed from [facility] to room 325-1 Skin check done. Left shoulder/upper arm bruise. Arm sling in place. Made comfortable in bed. Ongoing IVF. Fall precaution maintained.
[2021-01-20] MEDS: IV NS 0.9% 1,000 ML IV PRN (01:26)
[2021-01-20 01:47] LABS: BILIRUBIN,URINE NEGATIVE (NEGATIVE); COLOR,URINE YELLOW (YELLOW); LEUKOCYTE ESTERASE ,URINE SMALL (NEGATIVE); NITRITE, URINE NEGATIVE (NEGATIVE); PH,URINE 5.5 (5.0-8.0); PROTEIN,URINE 100 mg/dl (NEGATIVE); UGLUCOSE NEGATIVE (NEGATIVE); UROBILINOGEN,URINE 0.2 EU/dL (0.2)
[2021-01-20 01:59] LABS: CREATININE, URINE 46.3 MG/DL (30.0-125.0)
[2021-01-20 02:01] LABS: RBC,URINE 0-2 /HPF (0-2)
[2021-01-20 02:02] LABS: BACTERIA,URINE Many /HPF (None Seen); SQUAMOUS EPITHELIAL CELL,UR Few /HPF (None Seen)
[2021-01-20 02:30] VITALS: BP 160/75
--- NOTE | 2021-01-20 06:13 | NUR ---
END OF SHIFT REPORT Patient is A/O x1. Ongoing IVF. Left shoulder bruise. No surgical intervention at this time per Ortho. NWB LUE and arm sling at all times. No c/o pain. Patient will f/u with Dr. Ga in 2 wks post dc. Will endorse to oncoming RN. Fall precaution maintained.
[2021-01-20 06:39] LABS: BASOPHILS % (AUTO) 0.7 % (0.0-2.0); HEMATOCRIT 25 % (33-45); HEMOGLOBIN 8.3 g/dL (11.5-14.8); LYMPHOCYTES % (AUTO) 34.9 % (20.0-44.0); MEAN CORPUSCULAR HGB CONC 34 g/dl (31.0-36.0); MEAN CORPUSCULAR VOLUME 92 fL (82-100); MONOCYTES # (AUTO) 0.5 K/uL (0.1-1.30); MONOCYTES % (AUTO) 8.6 % (2.0-12.0); NEUTROPHILS # (AUTO) 2.9 K/uL (1.8-8.9); NEUTROPHILS % (AUTO) 50.8 % (43.0-81.0); PLATELET COUNT (AUTO) 161 K/uL (150-450); RED BLOOD CELL COUNT(AUTO) 2.65 MIL/uL (4.0-5.2); WHITE BLOOD COUNT (AUTO) 5.7 K/uL (4.3-11.0)
[2021-01-20] MEDS: INSULIN REGULAR, HUMAN 100 UNIT/ML 3 ML VIAL SQ PRN (06:50)
[2021-01-20 06:57] LABS: ALANINE AMINOTRANSFERASE 7 U/L (12-78); ALBUMIN 2.5 g/dL (3.4-5.0); ALKALINE PHOSPHATASE 74 U/L (46-116); ASPARTATE AMINOTRANSFERASE 14 U/L (15-37); BILIRUBIN,TOTAL 0.3 mg/dL (0.2-1.0); CALCIUM, SERUM 8.1 mg/dL (8.5-10.1); CARBON DIOXIDE 23 mmol/L (21-32); CHLORIDE 109 mmol/L (98-107); CREATINE KINASE, TOTAL 69 U/L (26-192); CREATININE 2.3 mg/dL (0.6-1.3); GLUCOSE 121 mg/dL (74-106); IRON, SERUM 37 ug/dl (50-175); MAGNESIUM 2.4 mg/dL (1.8-2.4); PHOSPHORUS 3.2 mg/dL (2.5-4.9); SODIUM SERUM 141 mmol/L (136-145); TOTAL IRON BINDING CAPACITY 246 ug/dl (250-450); TOTAL PROTEIN, SERUM 6.2 g/dL (6.4-8.2); UREA NITROGEN, BLOOD 41 mg/dL (7-18)
[2021-01-20] MEDS: BLOOD SUGAR DIAGNOSTIC 1 EACH STRIP IN SCH ×3 (06:58→17:10)
--- NOTE | 2021-01-20 08:00 | NUR ---
RN OPENING NOTE PT AWAKE IN BED. ON RA WITH NO SOB OR RESPIRATORY DISTRESS PRESENT. A/O X1 AND CONFUSED. NO S/S OF PAIN OR NAUSEA PRESENT. NO RECONCILIATION MACHINE OPERATOR PRESENT. EDEMA PRESENT ON L SHOULDER. ON BEDREST WITH L ARM SLING PRESENT. INCONTINENT. ON PUREE DIET BUT HAS BEEN REFUSING MEALS. IV PRESENT ON R AC 18G AND FLUSHES WELL. LABS AND ORDERS REVIEWED. SAFETY MEASURES IN PLACE. SIDE RAILS RAISED. BED LOWERED. CALL LIGHT WITHIN REACH. WILL CONTINUE TO MONITOR.
[2021-01-20] MEDS ORDERED: IV LR 1000 ML 1,000 ML IV PRN (10:30)
[2021-01-20] MEDS: LEVOTHYROXINE SODIUM 75 MCG TABLET PO SCH (10:55)
[2021-01-20] MEDS: PANTOPRAZOLE 40 MG TABLET.DR PO SCH (10:55)
[2021-01-20] MEDS: FAMOTIDINE (20 MG) 20 MG TABLET PO SCH (10:56)
[2021-01-20] MEDS: CALCIUM CARBONATE (1250) 500 MG TABLET PO SCH ×2 (10:56→16:44)
[2021-01-20] MEDS: DOCUSATE SODIUM 100 MG CAPSULE PO SCH ×2 (10:56→16:44)
[2021-01-20] MEDS: FERROUS SULFATE (325 MG) 325 MG/TAB TABLET PO SCH ×2 (10:56→16:44)
[2021-01-20] MEDS: hydrALAZINE HCL 50 MG TABLET PO SCH ×2 (10:56→13:00)
[2021-01-20] MEDS: MIRTAZAPINE 15 MG TABLET PO SCH (10:57)
[2021-01-20] MEDS: NATEGLINIDE 60 MG TABLET PO SCH (10:57)
[2021-01-20] MEDS: NEPRO VAN 237 ML CAN PO SCH ×2 (10:59→16:44)
[2021-01-20] MEDS: PROSOURCE / PROSTAT (PYXIS) 30 ML UDC GT SCH ×2 (11:00→16:44)
--- NOTE | 2021-01-20 12:12 | NUR ---
RN NOTE PT BG OF 154. NO S/S OF HYPOGLYCEMIA OR HYPERGLYCEMIA. INSULIN NOT GIVEN DUE TO PT REFUSING MEALS. PT DID NOT EAT BREAKFAST OR LUNCH. CN NOTIFIED, NOTIFIED. WILL CONTINUE TO MONITOR.
--- NOTE | 2021-01-20 13:17 | NUR ---
RN NOTE PT REFUSED PO HYDRALAZINE. PT HAS BEEN REFUSING FOOD AND PO MEDS SINCE AFTER BREAKFAST. BP OF 165/80, NV OF 87. NOTIFIED. CN NOTIFIED. WILL CONTINUE TO MONITOR.
[2021-01-20] MEDS ORDERED: ALEN70TA3 PO (14:02)
[2021-01-20] MEDS ORDERED: HYDR-3976 GT (14:04)
[2021-01-20] MEDS ORDERED: CLONIDINE HCL 0.1MG/24H PTWK 1 EA PATCH TD SCH (14:30)
--- NOTE | 2021-01-20 15:48 | NUR ---
RN NOTE CLONIDINE PATCH NOT IN PYXIS. CALLED PHARMACY FOR DELIVERY
[2021-01-20 16:37] VITALS: BP 184/80
--- NOTE | 2021-01-20 17:00 | NUR ---
RN NOTE PT DISCHARGED TO [facility]. PRESCRIPTIONS GIVEN TO FACILITY RN AND MED RECON GIVEN TO FACILITY. EXITCARE EDUCATION UTILIZED AND GIVEN TO FACILITY. IV LINE REMOVED. ID BAND REMOVED. V/S CHECKED PRIOR TO DISCHARGE AND STABLE. CLONIDINE PATCH PRESENT ON RCW. SKIN ASSESSMENT REFUSED BY PATIENT DUE TO PAIN. BELONGINGS CHECKED AND GIVEN TO EMT. REPORT GIVEN TO MICHAEL BOND AT FACILITY. PT TRANSPORTED VIA AMBULANCE AND EMT.
[2021-01-20] MEDS: ASPIRIN 81 MG TAB.CHEW PO SCH (17:10)
== END 2021-01-20 17:30 | DRG 543 ==
LOC: ER 15:59 → MEDSG1 19:53 → MED 01-20 00:40
PROVIDERS: ADMIT Legal Medicine; ATTEND Legal Medicine
DX: M80.022A Age-related osteoporosis with current pathological fracture, left humerus, initial encounter for fracture (principal); N18.4 Chronic kidney disease, stage 4 (severe); E11.22 Type 2 diabetes mellitus with diabetic chronic kidney disease; I12.9 Hypertensive chronic kidney disease with stage 1 through stage 4 chronic kidney disease, or unspecified chronic kidney disease; I25.10 Atherosclerotic heart disease of native coronary artery without angina pectoris; F03.90 Unspecified dementia, unspecified severity, without behavioral disturbance, psychotic disturbance, mood disturbance, and anxiety; Z86.73 Personal history of transient ischemic attack (TIA), and cerebral infarction without residual deficits; E78.5 Hyperlipidemia, unspecified; E03.9 Hypothyroidism, unspecified; I70.0 Atherosclerosis of aorta; Z88.8 Allergy status to other drugs, medicaments and biological substances; Z98.890 Other specified postprocedural states; Z79.4 Long term (current) use of insulin; Z79.82 Long term (current) use of aspirin; Z79.899 Other long term (current) drug therapy; Z20.822 Contact with and (suspected) exposure to COVID-19
CPT/HCPCS: 36415; 70450-TC; 71045-TC; 73020; 73060-TC; 73090-TC; 76770-TC; 80048-TC; 80053-TC; 81001; 82550-TC; 82570-TC; 82728-TC; 82962-TC; 83540-TC; 83735-TC; 83970; 84100-TC; 84300-TC; 84484-TC; 85025-TC; 87081-TC; 87086-TC; 93307-TC; 93971-TC; C9803; G0378; J1815; J2270; J7030; U0003

== ENCOUNTER 2022-10-02 16:26 | Inpatient (IN) | payer MEDICARE, OTHER ==
[~2022-10-02] VITALS: Ht 152.4 cm; Wt 43.5 kg
[~2022-10-02 16:26] MED LIST changes: +ACET-868 PO; +ALEN70TA3 PO; +AMIN30LI27 PO; +ASPI-1169 PO; -ASPI-1420 PO; +BISA10SU11 RC; -CEPH-569 PO; +CRAN425C6 PO; +FERR325T23 PO; +GLUC1KIT IM; -INSU100I26 SQ; +INSU100V11 SQ; +MAGN400O6 PO; +MIRT7.5T10 PO; +NA P133E RC; +NUT.237L67 PO
--- NOTE | 2022-10-02 16:26 | NUR ---
JACQUELINE DELAROSA FROM CARE FACILITY FOR POOR ORAL INTAKE AND POSSIBLE G-TUBE PLACEMENT.
--- NOTE | 2022-10-02 17:21 | NUR ---
laboratory mechanical technician at bedside
[2022-10-02] MEDS ORDERED: ASCO-495 PO (17:26)
[2022-10-02] MEDS ORDERED: HYDR-4303 PO (17:26)
[2022-10-02] MEDS ORDERED: OMEP20CA15 PO (17:26)
[2022-10-02] MEDS ORDERED: INSU100V9 SQ (17:26)
--- NOTE | 2022-10-02 17:32 | NUR ---
SWAB FOR COVID19 SENT TO LAB
[2022-10-02 17:35] LABS: BASOPHILS % (AUTO) 0.4 % (0.0-2.0); EOSINOPHILS % (AUTO) 2.5 % (0.0-6.0); HEMATOCRIT 33 % (33-45); HEMOGLOBIN 10.4 g/dL (11.5-14.8); LYMPHOCYTES % (AUTO) 56.2 % (20.0-44.0); MEAN CORPUSCULAR HGB CONC 32 g/dl (31.0-36.0); MEAN CORPUSCULAR VOLUME 97 fL (82-100); MONOCYTES # (AUTO) 0.5 K/uL (0.1-1.30); MONOCYTES % (AUTO) 7.5 % (2.0-12.0); NEUTROPHILS # (AUTO) 2.4 K/uL (1.8-8.9); NEUTROPHILS % (AUTO) 33.4 % (43.0-81.0); PLATELET COUNT (AUTO) 159 K/uL (150-450); RED BLOOD CELL COUNT(AUTO) 3.39 MIL/uL (4.0-5.2); WHITE BLOOD COUNT (AUTO) 7.1 K/uL (4.3-11.0)
[2022-10-02] MEDS ORDERED: POLY15DR40 RIGHTEYE (17:38)
[2022-10-02 17:48] LABS: CARBON DIOXIDE 22 mmol/L (21-32); CHLORIDE 111 mmol/L (98-107); CREATININE 4.5 mg/dL (0.6-1.3); GLUCOSE 151 mg/dL (74-106); SODIUM SERUM 145 mmol/L (136-145)
[2022-10-02 17:54] LABS: UREA NITROGEN, BLOOD 84 mg/dL (7-18)
[2022-10-02 17:55] LABS: ALKALINE PHOSPHATASE 80 U/L (46-116); ASPARTATE AMINOTRANSFERASE 19 U/L (15-37); BILIRUBIN,DIRECT 0.1 mg/dL (0.0-0.2); BILIRUBIN,TOTAL 0.3 mg/dL (0.2-1.0)
[2022-10-02 17:56] LABS: ALANINE AMINOTRANSFERASE 20 U/L (12-78); ALBUMIN 3.3 g/dL (3.4-5.0); LIPASE 62 U/L (73-393)
--- NOTE | 2022-10-02 18:54 | NUR ---
URINE COLLECTED AND SENT
[2022-10-02] MEDS ORDERED: ASPIRIN 325 MG TABLET PO ONE (19:00)
--- NOTE | 2022-10-02 19:19 | NUR ---
CALLED DR. VASQUEZ [phone] X 1 LEFT VM
[2022-10-02 19:29] LABS: BILIRUBIN,URINE NEGATIVE (NEGATIVE); COLOR,URINE YELLOW (YELLOW); LEUKOCYTE ESTERASE ,URINE NEGATIVE (NEGATIVE); NITRITE, URINE NEGATIVE (NEGATIVE); PROTEIN,URINE 3+ mg/dl (NEGATIVE); UGLUCOSE 1+ mg/dL (NEGATIVE); UROBILINOGEN,URINE 0.2 EU/dL (0.2)
[2022-10-02 19:36] LABS: BACTERIA,URINE Few /HPF (None Seen); SQUAMOUS EPITHELIAL CELL,UR Few /HPF (None Seen)
[2022-10-02 19:37] LABS: WBC,URINE 0-2 /HPF (0-3)
[2022-10-02] MEDS ORDERED: ASPIRIN 325 MG TABLET ONE (19:38)
[2022-10-02] MEDS ORDERED: HYDROCODONE/APAP 5/325MG TABLET PO PRN (20:00)
[2022-10-02] MEDS ORDERED: ONDANSETRON HCL/PF 4 MG/2 ML VIAL IVP PRN (20:00)
[2022-10-02] MEDS ORDERED: DEXTROSE 50%-WATER 50 ML DISP.SYRIN IV PRN (20:00)
[2022-10-02] MEDS ORDERED: Z GUARD REMEDY 4 OZ OINT TP PRN (20:00)
[2022-10-02] MEDS ORDERED: ACETAMINOPHEN 325 MG TABLET PO PRN ×2 (20:00)
[2022-10-02] MEDS ORDERED: ZOLPIDEM TARTRATE 5 MG TABLET PO PRN (20:00)
[2022-10-02] MEDS ORDERED: MAG HYDROX/AL HYDROX/SIMETH 30 ML UDC PO PRN (20:00)
--- NOTE | 2022-10-02 20:17 | NUR ---
REPORT GIVEN TO PB BOND ROOM 313-1 FOR LÁZARO
--- NOTE | 2022-10-02 20:45 | NUR ---
application software engineer notes Received Pt from ER nurse. Pt is alert and orientedX1 with episode of confusion. Pt speaks Tam[place] and able to make needs known. on room air. No SOB. No S/S of distress noted. IV site at LFA# 22 is clean, intact and flushes well. tele monitor showed SR with second degree av block HR at 82. Noted R eye swollen. Skin assessment is done and performed. Skin is intact. Pt's belonging was checked by RADHA Ruano. Reorient Pt to the room. Safety precautions is maintained. bed at low position, brakes locked, side rails upX3, hob elevated, bed alarm is on and call light is within reach. will continue to monitor.
[2022-10-02 21:00] VITALS: BP 99/80
[2022-10-02] MEDS: ENOXAPARIN SODIUM 30 MG/0.3 ML DISP.SYRIN SQ SCH (21:00)
--- NOTE | 2022-10-02 21:00 | NUR ---
RN notes Called and spoke with Pt's daughter Elie Ruiz [phone] regarding vaccination status. Pt's daughter informed that Pt got covid vaccination from [facility]. NO pna vaccine. will continue to monitor.
[2022-10-02] MEDS: ATORVASTATIN 10 MG TABLET PO SCH (21:25)
--- NOTE | 2022-10-02 21:35 | NUR ---
RN notes Held lovenox for possible gtube placement. charge nurse is aware and informed.
[2022-10-02] MEDS: IV D5/0.45 NACL 1,000 ML IV PRN (22:02)
[2022-10-02] MEDS: BLOOD SUGAR DIAGNOSTIC 1 EACH STRIP IN SCH (22:20)
[2022-10-02] MEDS: INSULIN REGULAR, HUMAN 100 UNIT/ML 3 ML VIAL SQ PRN (22:24)
[2022-10-03] VITALS: BP 92/44
[2022-10-03 04:00] VITALS: BP 139/71
[2022-10-03] MEDS: BLOOD SUGAR DIAGNOSTIC 1 EACH STRIP IN SCH ×4 (06:32→22:42)
[2022-10-03] MEDS: INSULIN REGULAR, HUMAN 100 UNIT/ML 3 ML VIAL SQ PRN ×4 (06:32→22:43)
--- NOTE | 2022-10-03 06:48 | NUR ---
RN closing notes Pt is resting in bed comfortably. Pt is alert and orientedX1 with episode of confusion. Pt speaks [place] and able to make needs known. on room air. No SOB. No S/S of distress noted. IV site at LFA# 22 is clean, intact and infusing well D5 1/2NS@ 75 ml/hr. tele monitor showed SR with second degree av block HR at 60. Purewick is inplaced. Kept Pt clean,dry and comfortable. Safety precautions is maintained. bed at low position, brakes locked, side rails upX3, hob elevated, bed alarm is on and call light is within reach. will endorse to am nurse for LÁZARO.
[2022-10-03 07:00] VITALS: BP 88/68
--- NOTE | 2022-10-03 07:18 | NUR ---
LINE INSTALLER TROLLEY OPENING NOTES RECEIVED PATIENT SLEEPING IN BED WITH HOB SLIGHTLY ELEVATED. PT IS AOX1 - TO SELF ONLY, CONFUSED, CHINESE SPEAKING, SPEECH IS GARBLED. ON ROOM AIR WITHOUT ANY DIFFICULTY, NO SOB NOTED. PATIENT IS NOTED TO BE SCRATCHING HER RIGHT EYE AND FACE, COVERED HAND WITH ARM SLEEVES TO PREVENT INJURY. IV ACCESS NOTED ON LFA G#18, PATENT, INTACT, AND FLUSHING WELL WITH RUNNING D5 1/2 NS @75 ML/HR. ON TELEMONITORING WITH CURRENT READING OF SINUS BRADYCARDIA WITH 58 BPM, WITH 2 DEGREE TYPE 1 AND BBB. PATIENT IS ATTACHED TO PUREWICK DRAINING YELLOW URINE. PATIENT HAS NO S/SX OF PAIN, FLACC SCORE 0. WITH SCD PUMPS ATTACHED ON BOTH LEGS. PATIENT IS ON ASPIRATION AND FALLS PRECAUTION. SAFETY MEASURE IN PLACE: BED IN LOWEST AND LOCKED POSITION, SIDE RAILS UP X3, BED ALARM ON, CALL LIGHT AND TRAY TABLE WITHIN EASY REACH. WILL CONTINUE TO MONITOR.
[2022-10-03 07:21] LABS: CALCIUM, SERUM 8.4 mg/dL (8.5-10.1); CARBON DIOXIDE 18 mmol/L (21-32); CHLORIDE 107 mmol/L (98-107); CREATININE 3.8 mg/dL (0.6-1.3); GLUCOSE 90 mg/dL (74-106); MAGNESIUM 2.8 mg/dL (1.8-2.4); PHOSPHORUS 5.2 mg/dL (2.5-4.9); POTASSIUM 4.4 mmol/L (3.5-5.1); SODIUM SERUM 138 mmol/L (136-145)
[2022-10-03 07:22] LABS: UREA NITROGEN, BLOOD 81 mg/dL (7-18)
[2022-10-03 07:40] LABS: CHOLESTEROL 143 mg/dL (<200); HDL CHOLESTEROL 60 mg/dL (40-60); LDL 82 mg/dL (0-99); TRIGLYCERIDES 101 mg/dL (30-150)
[2022-10-03] MEDS: LEVOTHYROXINE SODIUM 88 MCG TABLET PO SCH (07:49)
[2022-10-03] MEDS: PANTOPRAZOLE 40 MG TABLET.DR PO SCH (07:49)
[2022-10-03] MEDS: NATEGLINIDE 60 MG TABLET PO SCH (08:27)
[2022-10-03 09:12] LABS: BASOPHILS # (AUTO) 0.1 K/uL (0.0-0.2); BASOPHILS % (AUTO) 1.3 % (0.0-2.0); HEMATOCRIT 31 % (33-45); HEMOGLOBIN 9.9 g/dL (11.5-14.8); LYMPHOCYTES # (AUTO) 1.8 K/uL (0.8-4.8); LYMPHOCYTES % (AUTO) 39.6 % (20.0-44.0); MEAN CORPUSCULAR HGB CONC 32 g/dl (31.0-36.0); MEAN CORPUSCULAR VOLUME 98 fL (82-100); MONOCYTES # (AUTO) 0.3 K/uL (0.1-1.30); MONOCYTES % (AUTO) 6.6 % (2.0-12.0); NEUTROPHILS # (AUTO) 2.3 K/uL (1.8-8.9); NEUTROPHILS % (AUTO) 48.5 % (43.0-81.0); PLATELET COUNT (AUTO) 80 K/uL (150-450); RED BLOOD CELL COUNT(AUTO) 3.16 MIL/uL (4.0-5.2); WHITE BLOOD COUNT (AUTO) 4.6 K/uL (4.3-11.0)
--- NOTE | 2022-10-03 09:38 | NUR ---
WOUND CARE CONSULT: PT SEEN FOR RT LOWER EYELID REDNESS AND SWELLING, PRESENT ON ADMISSION. DEFER TO PMD FOR EYE. PT NOTED TO BE RUBBING HER EYE WITH HER HAND/ARM. DISCUSSED WITH NURSING STAFF AND WELDING ROD COATER. PT NOTED TO HAVE SACRAL SCARRING, PRESENT ON ADMISSION. DISCUSSED SKIN PROTECTION WITH NURSING STAFF. MD IN AGREEMENT WITH PLAN OF CARE.
--- NOTE | 2022-10-03 10:09 | NUR ---
RN NOTES - CONSULTED DR VASQUEZ REGARDING THE PT'S CONSTANT SCRATCHING OF THE R EYE/FOREHEAD, COVERED THE HAND WITH SLEEVES YET STILL RUBBING. ALSO INFORMED MD REGARDING PLATELETS DROPPING TO 80, LOVENOX WAS HELD LAST NIGHT.
--- NOTE | 2022-10-03 11:10 | NUR ---
RN NOTES - PATIENT IS BACK FROM [facility] - SON LELE IS IN THE ROOM, PATIENT IS ATTACHED BACK TO IV, PUREWICK AND SCD PUMP
[2022-10-03 12:00] VITALS: BP 163/97
--- NOTE | 2022-10-03 12:49 | NUR ---
RN NOTES - CHANGED DIET TO PUREED CONSISTENCY
[2022-10-03] MEDS: IV D5/0.45 NACL 1,000 ML IV PRN (14:33)
[2022-10-03 16:00] VITALS: BP 155/62
[2022-10-03 16:01] LABS: EOSINOPHILS % (MANUAL) 4 % (0-4); LYMPHOCYTES % (MANUAL) 40 % (16-48); MONOCYTES % (MANUAL) 6 % (0-11.0); NEUTROPHILS % (MANUAL) 50 (42-76)
[2022-10-03] MEDS: GLUCERNA SHAKE 237 ML CAN PO SCH (16:56)
--- NOTE | 2022-10-03 17:00 | NUR ---
RN NOTES - ASKED DR VASQUEZ FOR CREAM FOR THE EYES THE PATIENT IS SCRATCHING, MENTIONED HE WILL ORDER IT AND WILL SEND TO PATIENT'S PHARMACY.`
--- NOTE | 2022-10-03 17:15 | NUR ---
RN NOTES - FIRST STEP LOW AIR LOSS MATTRESS RECEIVED AND INSTALLED.
[2022-10-03] MEDS: ASPIRIN 81 MG TAB.CHEW PO SCH (17:22)
--- NOTE | 2022-10-03 17:22 | NUR ---
RN NOTES - HELD ASPIRIN D/T LOW PLATELET PER DR VASQUEZ'S ORDER
--- NOTE | 2022-10-03 17:59 | NUR ---
RN NOTES - INFORMED DR VASQUEZ THAT THE PATIENT'S TELEMONITORING HAS BEEN SUSTAINED AT 39S HR IN THE LAST 30 MINUTES WITH 2ND DEGREE TYPE 1 AND BBB. PATIENT IS ALERT AND AWAKE RESPONDING TO SIMPLE QUESTIONS IN GREEK, DENIES PAIN NOR DISCOMFORT. PATIENT'S BP IS 163/57. AWAITING RESPONSE FROM .
--- NOTE | 2022-10-03 19:21 | NUR ---
BULLET LUBRICANT MIXER CLOSING NOTES PATIENT AWAKE IN BED WITH HOB SLIGHTLY ELEVATED WITH FAMILY AT BEDSIDE, PT IS AOX1-2 THIS TIME, TALKING AND SINGING WITH GRANDSON. STILL ON ROOM AIR WITHOUT ANY DIFFICULTY, NO SOB NOTED. STILL WITH IV ACCESS ON LFA G#18, PATENT, INTACT, AND FLUSHING WELL WITH RUNNING D5 1/2 NS @75 ML/HR. TELEMONITORING IS SHOWING READING OF SINUS BRADYCARDIA WITH 53 BPM, WITH 2 DEGREE TYPE 1 AND BBB, DR VASQUEZ IS AWARE. STILL WITH PUREWICK AND SCD PUMPS. ON SEBLE MATTRESS THIS TIME. PATIENT STILL HAS NO S/SX OF PAIN, FLACC SCORE 0. PATIENT IS ON ASPIRATION AND FALLS PRECAUTION. KEPT PATIENT SAFE. ALL NEEDS MET, ALL DUE MEDS GIVEN. SAFETY MEASURES MAINTAINED: BED IN LOWEST AND LOCKED POSITION, SIDE RAILS UP X3, BED ALARM ON, CALL LIGHT AND TRAY TABLE WITHIN EASY REACH. ENDORSED TO LOFTSMAN NURSE.
[2022-10-03] MEDS: ENOXAPARIN SODIUM 30 MG/0.3 ML DISP.SYRIN SQ SCH (20:00)
--- NOTE | 2022-10-03 20:00 | NUR ---
ANTICOAGULANT Plt low 80. Lovenox injection hold dose per DR. Jones.
[2022-10-03 20:31] VITALS: BP 195/58
[2022-10-03] MEDS: CLONIDINE HCL 0.1 MG TABLET PO PRN (20:33)
--- NOTE | 2022-10-03 20:39 | NUR ---
SBPm Addendum: 10/03/22 at 2042 by MICHAEL DELGADO RN CLARIFICATION NOTES ABOVE: INCOMPLETE NOTES. COMPLETED SEE BELOW. Elevated SBP 195/58 Patient no c/o headache, no N/V. Given Clonidine, will recheck BP.
--- NOTE | 2022-10-03 22:44 | NUR ---
ACCU CHECK Bld glucose 221mg/dl. Given insulin per parameters, co-signed by VARUN Mcfarlane.
[2022-10-03] MEDS: ATORVASTATIN 10 MG TABLET PO SCH (22:46)
[2022-10-04] VITALS: BP 131/56
[2022-10-04] MEDS: IV D5/0.45 NACL 1,000 ML IV PRN ×2 (02:03→17:02)
--- NOTE | 2022-10-04 02:05 | NUR ---
CHANGED OF PRIMARY RN Care endorsed to RN Stefani Cartwright. Patient in bed, sleeping, arouses easily. Turned and repositioned q2h. Oxygen sat 100's in RA. Sinus Jj in the Tele monitor HR 50's. IVF continuous. Wound consult for Right heel fluid filled blister, off load heels at all times. Fall/skin precaution maintained.
--- NOTE | 2022-10-04 03:25 | NUR ---
LAP MACHINE OPERATOR NOTE RECEIVED REPORT FROM VARUN RODRIGUEZ. PT IS SLEEPING IN BED, EASILY BEING AROUSED. SHE IS CONFUSED, RESPONDING TO HER NAME AND TOUCH. PT IS ON RA, TOLERATED WELL. NO S/S OF DISTRESS OR SOB. PT IS ON EXTERNAL FRAME WIRER, ON THE MONITOR, PT IS SB WITH HR AT 40S. IV ACCESS IS AT HER L FA, #22G, RUNNING D5 1/2NS@75 ML/HR. IV SITE IS PATENT AND INTACT. SAFETY MEASURES ARE IN PLACED: BED IN LOWEST AND LOCKED POSITION; SIDE RAILS UP X 3; BED ALARM IS SET; CALL LIGHT AND TABLE ARE WITHIN REACH. WILL CONTINUE MONITORING THE PT AND PROVIDE THE CARE PT NEEDS. Addendum: 10/04/22 at 0335 by YAS SEARS RN RECEIVED THE PT AT 0205.
[2022-10-04 05:09] VITALS: BP 117/83
--- NOTE | 2022-10-04 06:22 | NUR ---
AUTOMATIC I THREADING MACHINE FEEDER NOTE RECEIVED PHONE CALL FROM DENY (LAB) AND NOTIFIED THAT DIRECTOR COMMERCIAL SALES WAS NOT ABLE TO GET THE BLOOD DRAW FROM THIS PT. WILL TRY AGAIN LATER.
[2022-10-04] MEDS: INSULIN REGULAR, HUMAN 100 UNIT/ML 3 ML VIAL SQ PRN ×3 (06:48→17:31)
[2022-10-04] MEDS: BLOOD SUGAR DIAGNOSTIC 1 EACH STRIP IN SCH ×4 (06:49→21:32)
--- NOTE | 2022-10-04 06:52 | NUR ---
SURVEILLANCE DUAL RATE OFFICER CLOSING NOTE PT IS SLEEPING IN BED, EASILY BEING AROUSED. SHE IS CONFUSED, RESPONDING TO HER NAME AND TOUCH. PT IS ON RA, TOLERATED WELL. NO S/S OF DISTRESS OR SOB. PT IS ON EXTERNAL RULING MACHINE OPERATOR, ON THE MONITOR, PT IS SB WITH HR AT 40S. IV ACCESS IS AT HER L FA, #22G, RUNNING D5 1/2NS@75 ML/HR. IV SITE IS PATENT AND INTACT. SAFETY MEASURES ARE IN PLACED: BED IN LOWEST AND LOCKED POSITION; SIDE RAILS UP X 3; BED ALARM IS SET; CALL LIGHT AND TABLE ARE WITHIN REACH. WILL ENDORSE NEXT SHIFT NURSE FOR CONTINUING PT CARE.
--- NOTE | 2022-10-04 07:18 | NUR ---
INDOOR LANDSCAPER/GARDENER OPENING NOTES RECEIVED PATIENT AWAKE IN SEBLE BED WITH HOB SLIGHTLY ELEVATED. PT IS AOX1, EYES OPENING, RESPONDING IN SAMI, SPEECH IS GARBLED. ON ROOM AIR WITHOUT ANY DIFFICULTY, NO SOB NOTED. PATIENT IS NOTED TO BE SCRATCHING HER RIGHT EYE AND FACE, COVERED HAND WITH ARM SLEEVES TO PREVENT FURTHER INJURY. IV ACCESS NOTED ON LFA G#18, PATENT, INTACT, AND FLUSHING WELL WITH RUNNING D5 1/2 NS @75 ML/HR. ON TELEMONITORING WITH CURRENT READING OF SINUS BRADYCARDIA WITH 49 BPM, WITH 2 DEGREE TYPE 1 AND BBB. PATIENT IS ATTACHED TO PUREWICK DRAINING YELLOW URINE. PATIENT HAS NO S/SX OF PAIN, FLACC SCORE 0. WITH SCD PUMPS ATTACHED ON BOTH LEGS. PATIENT IS ON ASPIRATION AND FALL PRECAUTIONS. SAFETY MEASURE IN PLACE: BED IN LOWEST AND LOCKED POSITION, SIDE RAILS UP X3, BED ALARM ON, CALL LIGHT AND TRAY TABLE WITHIN EASY REACH. WILL CONTINUE TO MONITOR.
[2022-10-04] MEDS: PANTOPRAZOLE 40 MG TABLET.DR PO SCH (07:45)
[2022-10-04] MEDS: LEVOTHYROXINE SODIUM 88 MCG TABLET PO SCH (07:45)
[2022-10-04] MEDS: GLUCERNA SHAKE 237 ML CAN PO SCH ×2 (07:45→17:08)
[2022-10-04 08:00] VITALS: BP 136/60
[2022-10-04] MEDS: NATEGLINIDE 60 MG TABLET PO SCH (08:07)
[2022-10-04 09:20] LABS: BASOPHILS % (AUTO) 0.3 % (0.0-2.0); EOSINOPHILS % (AUTO) 1.7 % (0.0-6.0); HEMATOCRIT 29 % (33-45); HEMOGLOBIN 9.2 g/dL (11.5-14.8); LYMPHOCYTES # (AUTO) 2.2 K/uL (0.8-4.8); LYMPHOCYTES % (AUTO) 28.7 % (20.0-44.0); MEAN CORPUSCULAR HGB CONC 32 g/dl (31.0-36.0); MEAN CORPUSCULAR VOLUME 96 fL (82-100); MONOCYTES # (AUTO) 0.5 K/uL (0.1-1.30); MONOCYTES % (AUTO) 6.2 % (2.0-12.0); NEUTROPHILS # (AUTO) 4.9 K/uL (1.8-8.9); NEUTROPHILS % (AUTO) 63.1 % (43.0-81.0); PLATELET COUNT (AUTO) 156 K/uL (150-450); RED BLOOD CELL COUNT(AUTO) 3.01 MIL/uL (4.0-5.2); WHITE BLOOD COUNT (AUTO) 7.8 K/uL (4.3-11.0)
--- NOTE | 2022-10-04 09:28 | NUR ---
WOUND CARE CONSULT: PT SEEN FOR RT HEEL INTACT BLISTER. NO ERYTHEMA OR DRAINAGE NOTED. PT NOTED TO BE RUBBING HER RT HEEL ON THE BED AND CROSSING ANKLES FREQUENTLY. DISCUSSED SKIN PROTECTION WITH NURSING STAFF. FOAM DRESSING APPLIED TO HEEL BY NURSING STAFF. IN AGREEMENT WITH PLAN OF CARE. Addendum: 10/04/22 at 0930 by JIMBO GÓMEZ WNDNU Amended: Links added.
[2022-10-04 09:56] LABS: CALCIUM, SERUM 7.9 mg/dL (8.5-10.1); CARBON DIOXIDE 21 mmol/L (21-32); CHLORIDE 109 mmol/L (98-107); CREATININE 3.6 mg/dL (0.6-1.3); GLUCOSE 182 mg/dL (74-106); MAGNESIUM 2.3 mg/dL (1.8-2.4); POTASSIUM 5.1 mmol/L (3.5-5.1); SODIUM SERUM 138 mmol/L (136-145); UREA NITROGEN, BLOOD 71 mg/dL (7-18)
[2022-10-04 11:06] VITALS: BP 166/79
[2022-10-04] MEDS: CLONIDINE HCL 0.1 MG TABLET PO PRN (11:57)
--- NOTE | 2022-10-04 12:00 | NUR ---
RN NOTES - PATIENT BP = 166/79, GIVEN CATAPRES HCL 0.1 MG PO FOR SBP >160 ORDERED. WILL CONTINUE TO MONITOR.
--- NOTE | 2022-10-04 13:16 | NUR ---
RN NOTES - CURRENT BP IS 149/65 MMHG.
[2022-10-04 16:00] VITALS: BP 149/69
[2022-10-04] MEDS: ASPIRIN 81 MG TAB.CHEW PO SCH (17:28)
--- NOTE | 2022-10-04 18:49 | NUR ---
BOILER ERECTOR CLOSING NOTES PATIENT SLEEPING IN BED EASILY AWAKEN, HOB SLIGHTLY ELEVATED. PT IS AOX1 RESPONDING WHEN NAME IS CALLED BUT WONT OPEN HER EYES. STILL ON ROOM AIR WITHOUT ANY DIFFICULTY, NO SOB NOTED. STILL WITH IV ACCESS ON LFA G#18, PATENT, INTACT, AND FLUSHING WELL WITH RUNNING D5 1/2 NS @75 ML/HR. TELEMONITORING IS SHOWING READING OF SINUS BRADYCARDIA WITH 35 BPM, WITH 2 DEGREE AV BLOCK TYPE 1 AND BBB, DR VASQUEZ IS AWARE, PT IS ASYMPTOMATIC. STILL WITH PUREWICK AND SCD PUMPS. NOT SHOWING ANY S/SX OF PAIN. PATIENT IS ON ASPIRATION AND FALLS PRECAUTION. KEPT PATIENT SAFE. ALL NEEDS MET, ALL DUE MEDS GIVEN. SAFETY MEASURES MAINTAINED: BED IN LOWEST AND LOCKED POSITION, SIDE RAILS UP X3, BED ALARM ON, CALL LIGHT AND TRAY TABLE WITHIN EASY REACH. WILL ENDORSE TO STUDENT ASSISTANCE COUNSELOR NURSE.
[2022-10-04 20:00] VITALS: BP 188/43
--- NOTE | 2022-10-04 20:25 | NUR ---
SERGER NOTES RECEIVED PATIENT IN BED, ASLEEP. A/O X 1 ABLE TO RESPONSE BY NAME. ON MODERATE HIGH BACK REST POSITION. ON DIABETIC PUREED DIET TOLERATED. WITH IV ACCESS AT LFA #22G WITH D2 1/2 NS 1L AT 75ML/HR INFUSING WELL.NO PAIN OR DISTRESS NOTED AT THIS TIME. NOTED EPISODES OF BRADYCARDIA AT 40'S BPM ASYMPTOMATIC DR. VASQUEZ MADE AWARE. ON TELE MONITORING DEVICE. KEPT BED ON LOWER LOCKED POSITION, KEPT SIDE RAILS UP X 2 ALL THE TIME, KEPT CALL LIGHT WITHIN AT REACH. SAFETY PRECAUTIONS MAINTAINED. WITH PUREWICK CONNECTED TO SUCTION MACHINE NOTED URINE OUTPUT. WILL CONTINUE TO MONITOR FOR LÁZARO.
[2022-10-04] MEDS: ATORVASTATIN 10 MG TABLET PO SCH (21:02)
[2022-10-04] MEDS: ENOXAPARIN SODIUM 30 MG/0.3 ML DISP.SYRIN SQ SCH (21:02)
[2022-10-05] MEDS: IV D5/0.45 NACL 1,000 ML IV PRN ×2 (05:30→18:49)
[2022-10-05] MEDS: BLOOD SUGAR DIAGNOSTIC 1 EACH STRIP IN SCH ×4 (06:26→21:15)
[2022-10-05] MEDS: INSULIN REGULAR, HUMAN 100 UNIT/ML 3 ML VIAL SQ PRN ×4 (06:29→21:16)
--- NOTE | 2022-10-05 06:39 | NUR ---
RN TELEN CLOSING NOTES PATIENT IS IN BED, ASLEEP. A/O X 1 ABLE TO RESPONSE BY NAME. ON MODERATE HIGH BACK REST POSITION. ON DIABETIC PUREED DIET TOLERATED. WITH IV ACCESS AT LFA #22G WITH D2 1/2 NS 1L AT 75ML/HR INFUSING WELL.NO PAIN OR DISTRESS NOTED AT THIS TIME. NOTED EPISODES OF BRADYCARDIA AT 40'S BPM ASYMPTOMATIC DR. VASQUEZ MADE AWARE. ON TELE MONITORING DEVICE. KEPT BED ON LOWER LOCKED POSITION, KEPT SIDE RAILS UP X 2 ALL THE TIME, KEPT CALL LIGHT WITHIN AT REACH. SAFETY PRECAUTIONS MAINTAINED. WITH PUREWICK CONNECTED TO SUCTION MACHINE NOTED URINE OUTPUT.NO SOB OR DISTRESS NOTED AT THIS TIME. PM CARE RENDERED, INTAKE AND OUTPUT RECORDED, ALL DUE MEDICATIONS GIVEN ALL NEEDS ATTENDED. KEPT PATIENT WARM AND COMFORTABLE. WILL ENDORSED TO AM SHIFT FOR LÁZARO
--- NOTE | 2022-10-05 07:00 | NUR ---
SAWMILL PRODUCTION WORKER OPENING NOTES: RECEIVED PT IN BED, AWAKE. ALERT AND ORIENTED X 1 WITH EPISODES OF CONFUSION AND FORGETFULNESS. MALTESE SPEAKER. NO SOB OR CARDIAC DISTRESS NOTED, ON ROOM AIR AND TOLERATING WELL. ON NATURAL GAS TREATING UNIT OPERATOR WITH CURRENT READING OF: SB @ 50 BPM. IV ACCESS ON LEFT FA GAUGE 22 PATENT, INTACT AND [id number] @ 75ML/HR. PUREWICK IN PLACE. SAFETY MEASURES MAINTAINED, BED LOCKED AND IN LOWEST POSITION, SIDE RAILS UP X 2 CALL LIGHT IN EAY REACH FOR HELP. WILL MONITOR PT ACCORDINGLY.
[2022-10-05] MEDS: PANTOPRAZOLE 40 MG TABLET.DR PO SCH (07:40)
[2022-10-05] MEDS: LEVOTHYROXINE SODIUM 88 MCG TABLET PO SCH (07:40)
[2022-10-05] MEDS: GLUCERNA SHAKE 237 ML CAN PO SCH ×2 (08:06→16:38)
[2022-10-05 08:30] VITALS: BP 162/92
[2022-10-05] MEDS: NATEGLINIDE 60 MG TABLET PO SCH (08:35)
[2022-10-05] MEDS: CLONIDINE HCL 0.1 MG TABLET PO PRN (08:36)
[2022-10-05 12:00] VITALS: BP 132/51
[2022-10-05 16:07] VITALS: BP 172/62
[2022-10-05] MEDS: MEGESTROL ACETATE SUSP 400 MG/10 ML UDC PO SCH (16:37)
[2022-10-05] MEDS: ASPIRIN 81 MG TAB.CHEW PO SCH (17:16)
--- NOTE | 2022-10-05 18:37 | NUR ---
RN NOTES: INFORMED DR VSAQUEZ IF HE CAN ORDER EYE DROPS FOR PT'S IRRITATED RIGHT EYE DUE TO SCRUBBING IT, R HAND PADDED WITH CLOTH. PENDING RESPONSE FROM DR VASQUEZ.
--- NOTE | 2022-10-05 19:02 | NUR ---
TRANSITIONAL NURSE CLOSING NOTES: PT IN BED, ASLEEP EASILY AROUSED WITH STIMULI. A/O X 1. NO SOB AT ROOM AIR AND CORBIN WELL. ON TELE MONITOR CURRENT READING SB @50BPM WITH EPISODES OF 30-40S BPM HR. ON PUREWICK. IV ACCESS ON LFA GAUGE 22 PATENT INTACT AND INFUSING IV D51/2 NS @75ML/HR. SAFETY MEASURES MAINTAINED: BED LOCKED AND IN LOWEST POSITION, SIDE RAILS UP X 3. CALL LIGHT IN EASY REACH. ENDORSED TO CERTIFIED SCRUM MASTER RN FOR CONTINUITY OF CARE.
--- NOTE | 2022-10-05 19:30 | NUR ---
GAS TREATER OPENING NOTE RECEIVED PATIENT IN BED, WITH EYES CLOSED BUT RESPONDS TO VERBAL AND TACTILE STIMULI. AFEBRILE AND NOT IN ANY FORM OF ACUTE DISTRESS, Addendum: 10/05/22 at 1947 by KEANU HUGHES RN ADDENDUM: BREATHING EVEN AND NON LABORED. PER REPORT, PATIENT'S HR IS CONSISTENTLY LOW AT 30'S AND MD IS AWARE ABOUT IT AND ADVISED TO JUST CONTINUE IV HYDRATION. PATIENT ALSO WAS REPORTED TO HAVE POOR APPETITE. WITH IV ACCESS ON LFA 22G RUNNING WITH D5 1/2NS AT 75ML/HR. SAFETY MEASURES IN PLACE. KEPT BED IN LOCKED AND IN LOW POSITION. SIDE RAILS UP X2. CALL LIGHT WITHIN EASY REACH.
[2022-10-05 20:00] VITALS: BP 150/43
[2022-10-05] MEDS: ENOXAPARIN SODIUM 30 MG/0.3 ML DISP.SYRIN SQ SCH (20:05)
[2022-10-05] MEDS: ATORVASTATIN 10 MG TABLET PO SCH (21:15)
--- NOTE | 2022-10-05 22:20 | NUR ---
TRENCHING MACHINE OPERATOR NOTE PATIENT CONTINUES TO HAVE LOW HR. LATEST READING IS SINUS BRADYCARDIA. NOTIFIED DR. VASQUEZ AND STAT EKG WAS DONE AND RELAYED RESULT TO MD WITH NO NEW ORDER MADE AND JUST TO CONTINUE MONITORING PATIENT. REMAINS ASYMPTOMATIC AND NO CHANGES IN MENTATION. RESPONDS TO VERBAL AND TACTILE STIMULI.
[2022-10-06] VITALS (7 sets, daily range): BP systolic 143–178; BP diastolic 56–89
--- NOTE | 2022-10-06 06:30 | NUR ---
NURSES' ASSOCIATION COUNSELOR CLOSING NOTE PATIENT IN BED, SLEEPING INTERMITTENTLY. AFEBRILE AND NOT IN ANY FORM OF ACUTE DISTRESS, BREATHING EVEN AND NON LABORED. ON TELE MONITORING WITH CURRENT READING OF SB 49. WITH IV ACCESS ON LFA 22G RUNNING WITH D5 1/2NS AT 75ML/HR. MEDICATED ORDERED. PATIENT CONTINUOUS TO HAVE LOW PULSE RATE, MD MADE AWARE WITH NO NEW ORDER MADE. OFFERED AND ENCOURAGED ORAL INTAKE. SAFETY MEASURES IN PLACE. KEPT BED IN LOCKED AND IN LOW POSITION. SIDE RAILS UP X2. CALL LIGHT WITHIN EASY REACH. ALL NURSING NEEDS ATTENDED. ENDORSED TO INCOMING SHIFT FOR CONTINUITY OF CARE.
[2022-10-06] MEDS: BLOOD SUGAR DIAGNOSTIC 1 EACH STRIP IN SCH ×4 (06:41→21:52)
[2022-10-06] MEDS: IV D5/0.45 NACL 1,000 ML IV PRN ×2 (06:56→19:49)
[2022-10-06 07:08] LABS: CALCIUM, SERUM 7.9 mg/dL (8.5-10.1); CARBON DIOXIDE 16 mmol/L (21-32); CHLORIDE 108 mmol/L (98-107); CREATININE 3.2 mg/dL (0.6-1.3); GLUCOSE 106 mg/dL (74-106); POTASSIUM 4.6 mmol/L (3.5-5.1); SODIUM SERUM 133 mmol/L (136-145); UREA NITROGEN, BLOOD 64 mg/dL (7-18)
--- NOTE | 2022-10-06 07:20 | NUR ---
RN OPENING NOTE RECEIVED PATIENT IN BED AWAKE, A/O X1. NO SIGNS OF ACUTE DISTRESS NOTED. ON ROOM AIR, TOLERATING WELL. NO SOB NOTED, BREATHING EVEN AND UNLABORED. NO S/SX OF PAIN AT THIS TIME. NOTED WITH IV ACCESS ON LEFT FOREARM #22G, INTACT AND PATENT WITH D5 1/2 NS @75ML/HR RUNNING. ON AIRCRAFT INSTRUMENT MECHANIC SHOWING SINUS SINUS BISI HR @ 51. SAFETY MEASURE IN PLACE. BED IN LOW AND LOCKED POSITION, SIDE RAILS UP X2, CALL LIGHT PLACED WITHIN EASY REACH. WILL CONTINUE TO MONITOR PATIENT.
[2022-10-06] MEDS: PANTOPRAZOLE 40 MG TABLET.DR PO SCH (08:44)
[2022-10-06] MEDS: NATEGLINIDE 60 MG TABLET PO SCH (08:44)
[2022-10-06] MEDS: LEVOTHYROXINE SODIUM 88 MCG TABLET PO SCH (08:44)
[2022-10-06] MEDS: MEGESTROL ACETATE SUSP 400 MG/10 ML UDC PO SCH ×2 (08:44→16:12)
[2022-10-06 08:45] LABS: BASOPHILS % (AUTO) 0.4 % (0.0-2.0); EOSINOPHILS % (AUTO) 1.6 % (0.0-6.0); HEMATOCRIT 30 % (33-45); HEMOGLOBIN 9.8 g/dL (11.5-14.8); LYMPHOCYTES # (AUTO) 1.8 K/uL (0.8-4.8); LYMPHOCYTES % (AUTO) 23.3 % (20.0-44.0); MEAN CORPUSCULAR HGB CONC 33 g/dl (31.0-36.0); MEAN CORPUSCULAR VOLUME 95 fL (82-100); MONOCYTES # (AUTO) 0.4 K/uL (0.1-1.30); MONOCYTES % (AUTO) 5.5 % (2.0-12.0); NEUTROPHILS # (AUTO) 5.3 K/uL (1.8-8.9); NEUTROPHILS % (AUTO) 69.2 % (43.0-81.0); PLATELET COUNT (AUTO) 164 K/uL (150-450); RED BLOOD CELL COUNT(AUTO) 3.17 MIL/uL (4.0-5.2); WHITE BLOOD COUNT (AUTO) 7.6 K/uL (4.3-11.0)
[2022-10-06] MEDS: GLUCERNA SHAKE 237 ML CAN PO SCH ×2 (08:45→17:02)
[2022-10-06] MEDS: INSULIN REGULAR, HUMAN 100 UNIT/ML 3 ML VIAL SQ PRN ×3 (11:44→21:56)
[2022-10-06] MEDS: CLONIDINE HCL 0.1 MG TABLET PO PRN (12:11)
[2022-10-06] MEDS: ASPIRIN 81 MG TAB.CHEW PO SCH (17:01)
--- NOTE | 2022-10-06 18:56 | NUR ---
RN CLOSING NOTE PATIENT IN BED ASLEEP, A/O X1, VERBALLY RESPONSIVE. NO SIGNS OF ACUTE DISTRESS NOTED. REMAINS STABLE ON ROOM AIR, NO SOB NOTED, BREATHING EVEN AND UNLABORED. NO S/SX OF PAIN. WITH IV ACCESS ON LEFT FOREARM #22G, INTACT AND PATENT WITH D5 1/2 NS @75ML/HR RUNNING. CONTINUE ON SECURITY CONTROL ROOM OFFICER SHOWING SINUS SINUS BISI HR @ 45. TURNED AND REPOSITIONED Q2HR. ASSISTED WITH ADL'S. SAFETY MEASURE MAINTAINED. BED IN LOW AND LOCKED POSITION, SIDE RAILS UP X2, CALL LIGHT PLACED WITHIN EASY REACH. WILL ENDORSE TO NEXT SHIFT FOR CONTINUITY OF CARE.
--- NOTE | 2022-10-06 19:10 | NUR ---
CANVAS CUTTER MACHINE OPENING NOTE PT IS SLEEPING IN BED, EASILY BEING AROUSED. PT IS [place] SPEAKING. SHE IS CONFUSED, RESPONDING TO HER NAME AND TOUCH. PT IS ON RA, TOLERATED WELL. NO S/S OF DISTRESS OR SOB. 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 IV ACCESS IS AT HER L FA, #22G, RUNNING D5 1/2NS@75 ML/HR. IV SITE IS PATENT AND INTACT. SAFETY MEASURES ARE IN PLACED: BED IN LOWEST AND LOCKED POSITION; SIDE RAILS UP X 3; BED ALARM IS SET; CALL LIGHT AND TABLE ARE WITHIN REACH. WILL CONTINUE MONITORING THE PT AND PROVIDE THE CARE PT NEEDS.
[2022-10-06] MEDS: ENOXAPARIN SODIUM 30 MG/0.3 ML DISP.SYRIN SQ SCH (19:54)
[2022-10-06] MEDS: ATORVASTATIN 10 MG TABLET PO SCH (21:29)
[2022-10-07] VITALS (7 sets, daily range): BP systolic 99–167; BP diastolic 50–67
[2022-10-07] MEDS: IV D5/0.45 NACL 1,000 ML IV PRN ×2 (03:57→18:09)
[2022-10-07] MEDS: BLOOD SUGAR DIAGNOSTIC 1 EACH STRIP IN SCH ×4 (06:30→21:40)
--- NOTE | 2022-10-07 06:40 | NUR ---
MACHINE MOLDER SQUEEZE OPENING NOTE PT IS SLEEPING IN BED, EASILY BEING AROUSED. PT IS [place] SPEAKING. SHE IS CONFUSED, AO X 1; RESPONDING TO HER NAME AND TOUCH. PT IS ON RA, TOLERATED WELL. NO S/S OF DISTRESS OR SOB. 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 IV ACCESS IS AT HER R UA, #22G, RUNNING D5 1/2NS@75 ML/HR. IV SITE IS PATENT AND INTACT. SAFETY MEASURES ARE IN PLACED: BED IN LOWEST AND LOCKED POSITION; SIDE RAILS UP X 3; BED ALARM IS SET; CALL LIGHT AND TABLE ARE WITHIN REACH. WILL ENDORSE NEXT SHIFT NURSE FOR CONTINUING PT CARE. Addendum: 10/07/22 at 0642 by YAS SEARS RN MACHINE MOLDER SQUEEZE CLOSING NOTE
[2022-10-07 07:00] LABS: BASOPHILS % (AUTO) 0.2 % (0.0-2.0); EOSINOPHILS % (AUTO) 1.1 % (0.0-6.0); HEMATOCRIT 30 % (33-45); HEMOGLOBIN 9.4 g/dL (11.5-14.8); LYMPHOCYTES % (AUTO) 23.8 % (20.0-44.0); MEAN CORPUSCULAR HGB CONC 31 g/dl (31.0-36.0); MEAN CORPUSCULAR VOLUME 99 fL (82-100); MONOCYTES # (AUTO) 0.7 K/uL (0.1-1.30); MONOCYTES % (AUTO) 8.2 % (2.0-12.0); NEUTROPHILS # (AUTO) 5.5 K/uL (1.8-8.9); NEUTROPHILS % (AUTO) 66.7 % (43.0-81.0); PLATELET COUNT (AUTO) 164 K/uL (150-450); RED BLOOD CELL COUNT(AUTO) 3.03 MIL/uL (4.0-5.2); WHITE BLOOD COUNT (AUTO) 8.2 K/uL (4.3-11.0)
--- NOTE | 2022-10-07 07:50 | NUR ---
POND SUPERVISOR OPENING NOTE PT IS SLEEPING IN BED, EASILY BEING AROUSED. SHE IS CONFUSED, AO X 1; RESPONDING TO HER NAME AND TOUCH. PT IS ON RA, TOLERATED WELL. NO S/S OF DISTRESS OR SOB. 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 IV ACCESS IS AT HER R UA, #22G, RUNNING D5 1/2NS@75 ML/HR. IV SITE IS PATENT AND INTACT. SAFETY MEASURES ARE IN PLACED: BED IN LOWEST AND LOCKED POSITION; SIDE RAILS UP X 3; BED ALARM IS SET; CALL LIGHT AND TABLE ARE WITHIN REACH. WILL CONTINUE TO MONITOR.
[2022-10-07] MEDS: LEVOTHYROXINE SODIUM 88 MCG TABLET PO SCH (07:59)
[2022-10-07] MEDS: PANTOPRAZOLE 40 MG TABLET.DR PO SCH (07:59)
[2022-10-07 08:12] LABS: CALCIUM, SERUM 7.8 mg/dL (8.5-10.1); CARBON DIOXIDE 14 mmol/L (21-32); CHLORIDE 108 mmol/L (98-107); CREATININE 3.2 mg/dL (0.6-1.3); GLUCOSE 111 mg/dL (74-106); POTASSIUM 4.2 mmol/L (3.5-5.1); SODIUM SERUM 133 mmol/L (136-145); UREA NITROGEN, BLOOD 64 mg/dL (7-18)
[2022-10-07] MEDS: NATEGLINIDE 60 MG TABLET PO SCH (08:50)
[2022-10-07] MEDS: GLUCERNA SHAKE 237 ML CAN PO SCH ×2 (08:50→17:01)
[2022-10-07] MEDS: MEGESTROL ACETATE SUSP 400 MG/10 ML UDC PO SCH ×2 (08:50→16:49)
--- NOTE | 2022-10-07 08:59 | NUR ---
rn notes PRN clonidine administered for high systolic BP, will monitor.
[2022-10-07] MEDS: CLONIDINE HCL 0.1 MG TABLET PO PRN ×2 (09:01→17:02)
[2022-10-07] MEDS: INSULIN REGULAR, HUMAN 100 UNIT/ML 3 ML VIAL SQ PRN ×3 (12:27→21:44)
[2022-10-07] MEDS: ASPIRIN 81 MG TAB.CHEW PO SCH (17:01)
--- NOTE | 2022-10-07 18:37 | NUR ---
BAG MACHINE OPERATOR CLOSING NOTE PT IS SLEEPING IN BED, EASILY BEING AROUSED. PT IS SWEDISH SPEAKING.CONFUSED, AO X 1; ON RA, TOLERATED WELL. NO S/S OF DISTRESS OR SOB. 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 IV ACCESS IS AT HER R UA, #22G, RUNNING D5 1/2NS@75 ML/HR. IV SITE IS PATENT AND INTACT. ALL MEDS GIVEN, NO SIGNIFICANT CHANGES ALL THROUGHOUT THE SHIFT. NOTIFIED DR. VASQUEZ OF THE LATEST LAB RESULT WITH NO NEW ORDERS. SAFETY MEASURES ARE IN PLACED: BED IN LOWEST AND LOCKED POSITION; SIDE RAILS UP X 3; BED ALARM IS SET; CALL LIGHT AND TABLE ARE WITHIN REACH. WILL ENDORSE NEXT SHIFT NURSE FOR CONTINUING PT CARE.
--- NOTE | 2022-10-07 19:30 | NUR ---
RN opening notes Received Pt from morning nurse. Pt is resting in bed comfortably. Pt is alert and orientedX1. On room air. No SOB. No S/S of distress noted. Tele monitor showed SB with second degree avb hr at 46. IV site at TONO# 22 is clean, intact, and infusing well D5 1/2NS@ 75 ml/hr. Purewick is intact and draining yellow urine. Safety precautions is maintained. Bed at low position, brakes locked, side rails upX3, bed alarm, hob elevated and call light is within reach. Will continue to monitor.
[2022-10-07] MEDS: ENOXAPARIN SODIUM 30 MG/0.3 ML DISP.SYRIN SQ SCH (20:07)
[2022-10-07] MEDS: ATORVASTATIN 10 MG TABLET PO SCH (21:45)
[2022-10-08 00:23] VITALS: BP 164/74
[2022-10-08] MEDS: CLONIDINE HCL 0.1 MG TABLET PO PRN ×2 (00:27→16:18)
--- NOTE | 2022-10-08 00:27 | NUR ---
RN notes Administered clonidine for high BP. BP 164/74. Will continue to monitor.
[2022-10-08 04:25] VITALS: BP 117/57
[2022-10-08] MEDS: BLOOD SUGAR DIAGNOSTIC 1 EACH STRIP IN SCH ×4 (06:33→22:16)
[2022-10-08] MEDS: INSULIN REGULAR, HUMAN 100 UNIT/ML 3 ML VIAL SQ PRN ×3 (06:34→23:06)
--- NOTE | 2022-10-08 06:42 | NUR ---
RN closing notes Pt is resting in bed comfortably. Pt is alert and orientedX1. On room air. No SOB. No S/S of distress noted. Routine meds were given as ordered. Tele monitor showed SB with second degree avb hr at 44. IV site at TONO# 22 is clean, intact, and infusing well D5 1/2NS@ 75 ml/hr. Purewick is intact and draining yellow urine. Wound care provided as ordered. Kept Pt clean, dry and comfortable. Safety precautions is maintained. Bed at low position, brakes locked, side rails upX3, bed alarm, hob elevated and call light is within reach. Will endorse to am nurse for LÁZARO.
--- NOTE | 2022-10-08 07:55 | NUR ---
RN- OPENING NOTES PATIENT IS ASLEEP IN BED, BREATHING EVEN AND NON LABORED WITH NO S/S OF DISTRESS. PATIENT IS EASILY AROUSED, A/O X1 TO NAME. PATIENT IS ON ROOM AIR, TOLERATING WELL. PATIENT IS ON EXTERNAL STRATEGIC PLANNER, READING SB WITH A HEART RATE OF 43 WITH 2ND DEGREE AV BLOCK. IV ACCESS NOTED ON RIGHT UPPER ARM #22 GAUGE, RUNNING D5 1/2 NS @ 75ML/HR. IV IS INTACT AND PATENT. SAFETY MEASURES IN PLACE: BED IN LOWEST POSITION, SIDE RAILS UP X3 WITH BED ALARM SET, CALL LIGHT WITHIN REACH. WILL CONTINUE WITH PLAN OF CARE INDICATED.
[2022-10-08 08:14] VITALS: BP 156/58
[2022-10-08] MEDS: PANTOPRAZOLE 40 MG TABLET.DR PO SCH (08:57)
[2022-10-08] MEDS: MEGESTROL ACETATE SUSP 400 MG/10 ML UDC PO SCH ×2 (08:57→16:18)
[2022-10-08] MEDS: NATEGLINIDE 60 MG TABLET PO SCH (08:57)
[2022-10-08] MEDS: LEVOTHYROXINE SODIUM 88 MCG TABLET PO SCH (08:57)
[2022-10-08] MEDS: GLUCERNA SHAKE 237 ML CAN PO SCH ×2 (08:58→17:16)
[2022-10-08] MEDS: IV D5/0.45 NACL 1,000 ML IV PRN ×2 (09:03→22:49)
--- NOTE | 2022-10-08 16:19 | NUR ---
RN- NOTES CLONIDINE 0.1MG PO ADMINISTERED DUE TO A BP OF 171/72.
[2022-10-08] MEDS: ASPIRIN 81 MG TAB.CHEW PO SCH (17:17)
--- NOTE | 2022-10-08 18:47 | NUR ---
RN- CLOSING NOTES PATIENT IS ASLEEP IN BED, BREATHING EVEN AND NON LABORED WITH NO S/S OF DISTRESS. PATIENT IS EASILY AROUSED, A/O X1 TO NAME. PATIENT IS ON ROOM AIR, TOLERATING WELL. 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 IV ACCESS NOTED ON RIGHT UPPER ARM #22 GAUGE, RUNNING D5 1/2 NS @ 75ML/HR. IV IS INTACT AND PATENT. ALL MEDICATIONS GIVEN, NO SIGNIFICANT CHANGES THROUGHOUT THE SHIFT. SAFETY MEASURES IN PLACE: BED IN LOWEST POSITION, SIDE RAILS UP X3 WITH BED ALARM SET, CALL LIGHT WITHIN REACH. WILL ENDORSE TO FOLLOWING SHIFT NURSE FOR CONTINUITY OF CARE.
--- NOTE | 2022-10-08 19:30 | NUR ---
GENERAL MATCHER OPENING NOTES RECEIVED PATIENT AWAKE IN BED. PATIENT IS A/O TIMES 1. BULGARIAN SPEAKER. RESPONSIVE TO TACTILE STIMULI. NO PAIN NOTED. NO SOB NOTED. NO DISTRESS NOTED. ON TELE MONITOR READING SB 52. PATIENT IS BED REST AND PUREWICK IS DRAINING YELLOW COLOR URINE. IV ACCESS TONO # 22 INTACT AND RUNNING D5 1/2 NS AT 75 ML/HR. ALL SAFETY MEASURES IN PLACE. BED LOCKED IN THE LOWEST POSITION. CALL LIGHT AND TABLE IN EASY REACH . SIDE ILS UP TIMES 2. BED ALARM ON . WILL CONTINUE TO MONITOR CLOSELY.
[2022-10-08 20:00] VITALS: BP 117/69
[2022-10-08] MEDS: ENOXAPARIN SODIUM 30 MG/0.3 ML DISP.SYRIN SQ SCH (20:42)
[2022-10-08] MEDS: ATORVASTATIN 10 MG TABLET PO SCH (21:03)
[2022-10-09] VITALS: BP 149/52
[2022-10-09 04:00] VITALS: BP 158/75
[2022-10-09] MEDS: BLOOD SUGAR DIAGNOSTIC 1 EACH STRIP IN SCH ×4 (06:14→21:11)
[2022-10-09] MEDS: INSULIN REGULAR, HUMAN 100 UNIT/ML 3 ML VIAL SQ PRN ×3 (06:15→21:51)
--- NOTE | 2022-10-09 06:47 | NUR ---
FAMILY PRESERVATION OFFICER CLOSING NOTES PATIENT AWAKE IN BED. PATIENT IS A/O TIMES 1. JAPANESE SPEAKER. RESPONSIVE TO TACTILE STIMULI. NO PAIN NOTED. NO SOB NOTED. NO DISTRESS NOTED. ON TELE MONITOR READING SB WITH BBB AND HEART RATE 52 WITH SECOND DEGREE HEART BLOCK. PATIENT IS BED REST AND PUREWICK IS DRAINING YELLOW COLOR URINE. IV ACCESS TONO # 22 INTACT AND RUNNING D5 1/2 NS AT 75 ML/HR. ALL DUE MEDS GIVEN ORDERED.ALL SAFETY MEASURES IN PLACE. BED LOCKED IN THE LOWEST POSITION. CALL LIGHT AND TABLE IN EASY REACH . SIDE RAILS UP TIMES 2. BED ALARM ON . WILL ENDORSE FOR LÁZARO.
--- NOTE | 2022-10-09 07:01 | NUR ---
RN NOTES BLOOD SUGAR CHECKS DONE. BLOOD SUGAR CHECK NOTED 194. 3 UNITS INSULIN GIVEN
--- NOTE | 2022-10-09 07:10 | NUR ---
HAIR TINTER OPENING NOTES RECEIVED PATIENT AWAKE IN BED. A/O X1. ARMENIAN SPEAKING, SECURITIES ADVISER COAL DELIVERER. NO PAIN, NO SOB, NO DISTRESS NOTED. ON TELE MONITOR READING SB 52. PATIENT ON PUREWICK, DRAINING YELLOW COLOR URINE. IV ACCESS TONO # 22 INTACT AND RUNNING D5 1/2 NS AT 75 ML/HR. ALL SAFETY MEASURES IN PLACE. BED LOCKED IN THE LOWEST POSITION. CALL LIGHT AND TABLE IN EASY REACH . SIDE ILS UP TIMES 2. BED ALARM ON . WILL CONTINUE TO MONITOR THE PATIENT FOR LÁZARO.
[2022-10-09 08:00] VITALS: BP 147/28
[2022-10-09] MEDS: LEVOTHYROXINE SODIUM 88 MCG TABLET PO SCH (08:54)
[2022-10-09] MEDS: PANTOPRAZOLE 40 MG TABLET.DR PO SCH (08:54)
[2022-10-09] MEDS: MEGESTROL ACETATE SUSP 400 MG/10 ML UDC PO SCH ×2 (08:55→16:52)
[2022-10-09] MEDS: GLUCERNA SHAKE 237 ML CAN PO SCH ×2 (08:55→17:11)
[2022-10-09] MEDS: NATEGLINIDE 60 MG TABLET PO SCH (08:56)
[2022-10-09 16:00] VITALS: BP 137/48
[2022-10-09] MEDS: ASPIRIN 81 MG TAB.CHEW PO SCH (17:08)
--- NOTE | 2022-10-09 18:47 | NUR ---
RAIL DIRECTOR CLOSING NOTES PATIENT AWAKE IN BED A/O x 1. MALDIVIAN SPEAKING WITH WARP DYEING VAT TENDER CHART WRITER. NO PAIN, SOB NOR DISTRESS NOTED. ON TELE MONITOR READING SB WITH BBB AND HEART RATE 54 WITH SECOND DEGREE HEART BLOCK. PATIENT IS BED REST AND PUREWICK IS DRAINING YELLOW COLOR URINE, 450 ML @ 1755. IV ACCESS TONO # 22 INTACT AND RUNNING D5 1/2 NS AT 75 ML/HR. ALL DUE MEDS GIVEN ORDERED. ALL SAFETY MEASURES IN PLACE. BED LOCKED IN THE LOWEST POSITION. CALL LIGHT AND TABLE IN EASY REACH . SIDE RAILS UP TIMES 2. BED ALARM ON . WILL ENDORSE TO PM NURSE FOR LÁZARO.
--- NOTE | 2022-10-09 19:30 | NUR ---
KALSOMINER NOTES SB-58 ON TELE MONITOR.LAYING ON BED A/O X1,CONFUSED.SPEAK GREEK,NO SOB.O2 SAT 95% ON ROOM AIR,PRESENT IVF INFUSING WELL ON TONO SALINE LOCK VIA IV PUMP.NO S/S OF INFILTRATION NOTED.PUREWICK IN PLACE,WITH ADEQUATE URINE OUTPUT.REPOSITION Q 2 HOURS PER PROTOCOL.FALL PRECAUTION OBSERVED.,BED ON LOWEST POSITION AND LOCKED.WILL CONTINUE TO MONITOR STATUS.
[2022-10-09 20:00] VITALS: BP 102/54
[2022-10-09] MEDS: IV D5/0.45 NACL 1,000 ML IV PRN (21:06)
[2022-10-09] MEDS: ATORVASTATIN 10 MG TABLET PO SCH (21:10)
[2022-10-09] MEDS: ENOXAPARIN SODIUM 30 MG/0.3 ML DISP.SYRIN SQ SCH (21:10)
--- NOTE | 2022-10-09 22:00 | NUR ---
PANEL SEWER NOTES ACCU-CHECK BLOOD SUGAR CHECK 158MG/DL,COVERED WITH HUMULIN R 2 UNITS PER SLIDING SCALE.IVF IN PROGRESS.
[2022-10-10] VITALS: BP 147/50
[2022-10-10 04:00] VITALS: BP 133/52
[2022-10-10 04:17] VITALS: BP 128/69
--- NOTE | 2022-10-10 05:30 | NUR ---
PACKAGING OPERATOR NOTES ACCU-CHECK BLOOD SUGAR CHECK 183MG/DL,COVERED WITH HUMULIN R 3 UNITS PER SLIDING SCALE.IVF IN PROGRESS.
[2022-10-10] MEDS: BLOOD SUGAR DIAGNOSTIC 1 EACH STRIP IN SCH ×2 (05:56→11:23)
[2022-10-10 06:28] LABS: CALCIUM, SERUM 7.7 mg/dL (8.5-10.1); CARBON DIOXIDE 14 mmol/L (21-32); CHLORIDE 108 mmol/L (98-107); CREATININE 3.6 mg/dL (0.6-1.3); GLUCOSE 211 mg/dL (74-106); POTASSIUM 4.6 mmol/L (3.5-5.1); SODIUM SERUM 134 mmol/L (136-145); UREA NITROGEN, BLOOD 70 mg/dL (7-18)
[2022-10-10] MEDS: INSULIN REGULAR, HUMAN 100 UNIT/ML 3 ML VIAL SQ PRN ×2 (06:29→11:23)
[2022-10-10 06:41] LABS: BASOPHILS % (AUTO) 0.3 % (0.0-2.0); EOSINOPHILS % (AUTO) 1.5 % (0.0-6.0); HEMATOCRIT 28 % (33-45); HEMOGLOBIN 8.9 g/dL (11.5-14.8); LYMPHOCYTES # (AUTO) 1.6 K/uL (0.8-4.8); LYMPHOCYTES % (AUTO) 29.2 % (20.0-44.0); MEAN CORPUSCULAR HGB CONC 32 g/dl (31.0-36.0); MEAN CORPUSCULAR VOLUME 99 fL (82-100); MONOCYTES # (AUTO) 0.6 K/uL (0.1-1.30); MONOCYTES % (AUTO) 10.1 % (2.0-12.0); NEUTROPHILS # (AUTO) 3.3 K/uL (1.8-8.9); NEUTROPHILS % (AUTO) 58.9 % (43.0-81.0); PLATELET COUNT (AUTO) 175 K/uL (150-450); RED BLOOD CELL COUNT(AUTO) 2.83 MIL/uL (4.0-5.2); WHITE BLOOD COUNT (AUTO) 5.6 K/uL (4.3-11.0)
--- NOTE | 2022-10-10 06:56 | NUR ---
INTERFACE ENGINEER NOTES FAIRLY RESTED AT NIGHT.REPOSITION PER PROTOCOL,HAD BM,CLEANED AND KEPT DRY,NO DISTRESS.WILL ENDORSE TO DAY NURSE FOR LÁZARO.
--- NOTE | 2022-10-10 07:23 | NUR ---
RN OPENING NOTE RECEIVED PATIENT IN BED, AWAKE A/O X1, VERBALLY RESPONSIVE. NO SIGNS OF ACUTE DISTRESS NOTED. ON ROOM AIR, TOLERATING WELL. NO SOB NOTED, BREATHING EVEN AND UNLABORED. NOTED WITH IV ACCESS ON RIGHT UPPER ARM #22G, INTACT AND PATENT, WITH D5 1/2 NS RUNNING @75 ML/HR. ON MAINTENANCE JOURNEYMAN SHOWING SINUS BISI/SINU RHYTHM. NO S/SX OF PAIN OR DISCOMFORT AT THIS TIME. PUREWICK CATHETER IN PLACE ATTACHED TO WALL SUCTION. SAFETY MEASURE IN PLACE. BED IN LOW AND LOCKED POSITION, SIDE RAILS UP X2, CALL LIGHT PLACED WITHIN EASY REACH. WILL CONTINUE TO MONITOR PATIENT.
[2022-10-10 08:00] VITALS: BP 191/72
[2022-10-10] MEDS: LEVOTHYROXINE SODIUM 88 MCG TABLET PO SCH (08:39)
[2022-10-10] MEDS: MEGESTROL ACETATE SUSP 400 MG/10 ML UDC PO SCH (08:39)
[2022-10-10] MEDS: NATEGLINIDE 60 MG TABLET PO SCH (08:39)
[2022-10-10] MEDS: PANTOPRAZOLE 40 MG TABLET.DR PO SCH (08:39)
[2022-10-10] MEDS: GLUCERNA SHAKE 237 ML CAN PO SCH (08:39)
[2022-10-10 09:24] VITALS: BP 176/78
[2022-10-10] MEDS: CLONIDINE HCL 0.1 MG TABLET PO PRN (09:24)
[2022-10-10] MEDS: IV D5/0.45 NACL 1,000 ML IV PRN (11:13)
--- NOTE | 2022-10-10 16:00 | NUR ---
SENIOR WEB DEVELOPER NOTE PATIENT DISCHARGED TO [facility] IN STABLE CONDITION. PATIENT REMAINS ALERT TO SELF, VERBALLY RESPONSIVE AND ABLE TO ANSWER SIMPLE QUESTIONS. IV ACCESS ON RIGHT UPPER ARM REMOVED, NO BLEEDING NOTED, PRESSURE DRESSING APPLIED TO SITE. PATIENT'S SON LELE AWARE OF DISCHARGE ORDER. HANDOFF REPORT GIVEN TO SUJIT Rivera RN FROM [facility]. EXITCARE FOLDER GIVEN TO [facility] PROFESSIONAL AMBULANCE CREW, HANDOFF REPORT GIVEN. PATIENT LEFT UNIT @1555 VIA GURNEY. CN AWARE OF DISCHARGE.
== END 2022-10-10 16:00 | DRG 640 ==
LOC: ER 16:30 → MED 20:05 → TELE 22:37
PROVIDERS: ADMIT Legal Medicine; ATTEND Legal Medicine
DX: R62.7 Adult failure to thrive (principal); E43 Unspecified severe protein-calorie malnutrition; G92.8 Other toxic encephalopathy; N17.9 Acute kidney failure, unspecified; N18.4 Chronic kidney disease, stage 4 (severe); R64 Cachexia; E11.9 Type 2 diabetes mellitus without complications; E03.9 Hypothyroidism, unspecified; I12.9 Hypertensive chronic kidney disease with stage 1 through stage 4 chronic kidney disease, or unspecified chronic kidney disease; E11.22 Type 2 diabetes mellitus with diabetic chronic kidney disease; E78.5 Hyperlipidemia, unspecified; Z98.890 Other specified postprocedural states; Z88.8 Allergy status to other drugs, medicaments and biological substances; Z79.4 Long term (current) use of insulin; Z79.82 Long term (current) use of aspirin; Z79.899 Other long term (current) drug therapy; F03.90 Unspecified dementia, unspecified severity, without behavioral disturbance, psychotic disturbance, mood disturbance, and anxiety; Z86.73 Personal history of transient ischemic attack (TIA), and cerebral infarction without residual deficits
CPT/HCPCS: 36415; 71045-TC; 71250-TC; 80048-TC; 80061-TC; 80076-TC; 81001; 82962-TC; 83690-TC; 83735-TC; 84100-TC; 84484-TC; 85025-TC; 87081-TC; 87086-TC; 97110-TC; 97530-TC; A4223; C9803; G0378; J1650; J1815; J3490; J7030; J7042